=== PATIENT | female | born 2005 | race Caucasian/White ===

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

== ENCOUNTER 2023-04-27 05:18 | Emergency (ER) | payer MEDICAID, SELFPAY ==
[2023-04-27 05:18] VITALS: BP 117/78; PULSE 75; RESP 17; TEMP 36.6; O2SAT 98; BMI 18.8
--- OUTSIDE RECORDS SUMMARY | 2023-04-27 05:32 | XMS RPT_ITS | CCD ---
Author Name Unknown Address [address] [place] [address] Organization [facility] Care Team Providers Care Laboratory Chief Name Role Phone ELZA MAIN Attending Unavailabl simone Aguillon III, MD, Rory A Primary Care Provider Malathi vailable Pal GALLO MD, Royr A Primary Care Provider Malathi vailable Required, No Pcp Unavailable Unavailable Bilderback, Ashanti Unavailable Ashanti Tellez Attending Unavaildavis Evans, Ms. Sherrie Dumont Attending Unavailable Bilderback, BETO Gabriel Referring Unavailable Unavailable Primary Care Provider UnavailRORY Franklin III A Primary Care Unavailable RORY AGUILLON III A Primary Care Unavailable BRAULIO KELLY Attending Unavailable NO, PHYSICIAN Primary Care Unavailable MARIA TERESA GRAMAJO Attending Unava ilable NO, PHYSICIAN Primary Care Unavailable BERNARD CARRENO Attending Unavail able Unavailable Primary Care Provider UnavailRENETTA Pryor Attending Unavailable RENETTA PONCE Referring Unavailable Medications Current Medications Medication Drug Class(es) Dates Sig (Normalized) Sig (Original) Ethinyl Estradiol / Levonorgestrel (5 sources) Progestin, Estrogen, Progestin-containi ng Intrauterine Device Start: 10-31-2020 End: 06-19-2022 take 1 tablet by mouth once daily Levonorgestrel-Eth inyl Estrad 0.1mg - 20mcg per tablet take 1 tablet by mouth once daily (FOR CONTINUOUS CYCLING) 0 10/31/2020 06/19/2022 Discontinued Problems Active Problems Problem Classification Problem Date Documented Date Episodic/Chronic Anxiety disorders (3 sources) Panic attack; Translations: [Panic disorder [episodic paroxysmal anxiety]] Onset: 03-04-2023 03-04-2023 Chronic Cardiac dysrhythmias (9 sources) Palpitations; Translations: [Palpitations] Onset: 01-27-2023 Episodic Conditions associated with dizziness or vertigo (1 source) Dizziness and giddiness; Translations: [Dizziness and giddiness] Onset: 05-27-2018 Episodic Disorders usually diagnosed in infancy, childhood, or adolescence (8 sources) Attention deficit hyperactivity disorder, predominantly inattentive type; Translations: [Other specified behavioral and emotional disorders with onset usually occurring in childhood and adolescence] Onset: 04-23-2013 04-23-2013 Chronic Genitourinary symptoms and ill-defined conditions (1 source) Scalding pain on urination ; Translations: [Dysuria] Episodic Headache; including migraine (8 sources) Migraine; Translations: [Migraine, unspecified, not intractable, without status migrainosus] Onset: 09-26-2012 09-26-2012 Chronic Headache; including migraine (1 source) Headache; Translations: [Headache, unspecified headache type] Episodic Past or Other Problems Problem Classification Problem Date Documented Da te Episodic/Chronic Other screening for suspected conditions (not mental disorders or infectious disease) (2 sources) Encounter for test, result negative; Translations: [Encounter for test, result negative] Onset: 10-11-2022 Episodic Syncope (10 sources) Syncope; Translations: [Syncope and collapse] Onset: 09-03-2014 Episodic Results Test Name Value Interpretation Reference Range Facil ity Vital Signs Date Time Vital Sign Value Performing Clinician Facility 06-19-2022 08:13-0500 Body height 162 cm Braulio Kelly MD Work Phone: [facility] 06-19-2022 08:13-0500 Body temperature 96.21 [degF] Braulio Kelly MD Work Phone: [facility] 06-19-2022 08:13-0500 Body weight 48.26 kg Braulio Kelly MD Work Phone: [facility] 06-19-2022 08:13-0500 Diastolic blood pressure 58 mm[Hg] Braulio Kelly MD Work Phone: [facility] 06-19-2022 08:13-0500 Heart rate 84 /min Braulio Kelly MD Work Phone: [facility] 06-19-2022 08:13-0500 Respiratory rate 18 /min Braulio Kelly MD Work Phone: [facility] 06-19-2022 08:13-0500 SaO2% (BldA) [Mass fraction] 99 % Braulio Kelly MD Work Phone: [facility] 06-19-2022 08:13-0500 Systolic blood pressure 98 mm[Hg] Braulio Kelly MD Work Phone: [facility] 06-03-2022 14:00-0500 Diastolic blood pressure 65 mm[Hg] No Pcp Required [facility] 06-03-2022 14:00-0500 Heart rate 80 /min No Pcp Required [facility] 06-03-2022 14:00-0500 Respiratory rate 16 /min No Pcp Required [facility] 06-03-2022 14:00-0500 SaO2% (BldA) [Mass fraction] 98 % No Pcp Required [facility] 06-03-2022 14:00-0500 Systolic blood pressure 100 mm[Hg] No Pcp Required [facility] 06-03-2022 11:43-0500 Body height 162.5 cm No Pcp Required [facility] 06-03-2022 11:43-0500 Body temperature 98.24 [degF] No Pcp Required [facility] 06-03-2022 11:43-0500 Body weight 50 kg No Pcp Required [facility] 01-26-2022 10:56-0400 Body temperature 97.5 [degF] Jocelyn Athy PA-C Work Phone: [facility] 01-26-2022 10:56-0400 Body weight 53.89 kg Jocelyn Athy PA-C Work Phone: [facility] 01-26-2022 10:56-0400 Diastolic blood pressure 64 mm[Hg] Jocelyn Athy PA-C Work Phone: [facility] 01-26-2022 10:56-0400 Heart rate 80 /min Jocelyn Athy PA-C Work Phone: [facility] 01-26-2022 10:56-0400 Respiratory rate 18 /min Jocelyn Brunner PA-C Work Phone: [facility] 01-26-2022 10:56-0400 SaO2% (BldA) [Mass fraction] 98 % Jocelyn Brunner PA-C Work Phone: [facility] 01-26-2022 10:56-0400 Systolic blood pressure 102 mm[Hg] Jocelyn Brunner PA-C Work Phone: [facility] Encounters Encounter Date Encounter Type Care Provider Facility Start: 03-10-2023 End: 03-11-2023 ambulatory RENETTA PONCE [facility] Start: 03-10-2023 End: 03-10-2023 Subsequent hospital visit by physician [facility] Procedures Date Procedure Procedure Detail Performing Clinician Start: 03-10-2023 HOLTER OR EVENT CARD IAC MONITOR RENETTA PONCE Start: 06-03-2022 End: 06-03-2022 EKG impression Vicente Frye Start: 01-26-2022 Urnls dip stick/tabl et rgnt auto w/o microscopy Missy Leon APRN.LURE MAKER Work Phone: Start: 10-10-2018 Adult depression screening assessment Rashel Maria MD Work Phone: Plan of Treatment Date Care Activity Detail Author Start: 2053 Zoster Vaccines (1 of 2) Zoster Vaccines (1 of 2) [facility] Start: 10-04-2026 DTaP/Tdap/Td Vaccines (7 - Td or Tdap) DTaP/Tdap/Td Vaccines (7 - Td or Tdap) [facility] Start: 10-04-2026 Urine microalbumin profile DTAP,TDAP,TD (7 - Td or Tdap) [facility] Start: 03-04-2023 End: 03-04-2024 Holter monitor study Holter Or Event Estimate Clerk Cardiac Services Routine Palpitations Expected: 03/04/2023 (Approximate), Expires: 03/04/2024 [facility] Service Area Work Phone: Immunizations Immunization Date Immunization Notes Care Provider Fa cility 06-28-2017 Human Papillomavirus 9-valent vaccine Rashel Maria MD Work Phone: [facility] Work Phone: 10-04-2016 human papilloma viru s vaccine, quadrivalent Rashel Maria MD Work Phone: [facility] 10-04-2016 meningococcal polysaccharide (groups A, C, Y and W-135) diphtheria toxoid conjugate vaccine (MCV4P) Rashel Maria MD Work Phone: [facility] 10-04-2016 tetanus toxoid, redu marisa diphtheria toxoid, and acellular pertussis vaccine, adsorbed Rashel Maria MD Work Phone: [facility] 12-02-2008 measles, mumps and rubella virus vaccine Rashel Maria MD Work Phone: [facility] Work Phone: 12-02-2008 varicella virus vaccine Tono Maria MD Work Phone: [facility] Work Phone: 07-10-2008 diphtheria, tetanus toxoids and acellular pertussis vaccine Rashel Maria MD Work Phone: [facility] Work Phone: 07-10-2008 pneumococcal conjuga te vaccine, 7 valent Rashel Maria MD Work Phone: [facility] Work Phone: 07-10-2008 poliovirus vaccine, inactivated Rashel Maria MD Work Phone: [facility] Work Phone: 07-10-2008 varicella virus vaccine Tono Maria MD Work Phone: [facility] Work Phone: 07-12-2006 diphtheria, tetanus toxoids and acellular pertussis vaccine Rashel Maria MD Work Phone: [facility] 07-12-2006 DTaP-Haemophilus influenzae type b conjugate vaccine Renetta Ponce EQUIP TECH-LURE MAKER, DNP Work Phone: [facility] Work Phone: 07-12-2006 haemophilus influenz ae type b vaccine, HbOC conjugate Rashel Maria MD Work Phone: [facility] 07-12-2006 measles, mumps and rubella virus vaccine Rashel Maria MD Work Phone: [facility] 05-13-2004 DTaP-hepatitis B and poliovirus vaccine Rashel Maria MD Work Phone: [facility] Work Phone: 05-13-2004 haemophilus influenz ae type b vaccine, HbOC conjugate Rashel Maria MD Work Phone: [facility] Work Phone: 05-13-2004 haemophilus influenz ae type b vaccine, PRP-T conjugate Renetta SHARMA DNP Work Phone: [facility] Work Phone: 05-13-2004 hepatitis B vaccine, pediatric or pediatric/adolescent dosage Rashel Maria MD Work Phone: [facility] Work Phone: 05-03-2004 pneumococcal conjuga te vaccine, 13 valent Renetta SHARMA DNP Work Phone: [facility] Work Phone: 05-03-2004 pneumococcal conjuga te vaccine, 7 valent Rashel Maria MD Work Phone: [facility] Work Phone: 2003 DTaP-hepatitis B and poliovirus vaccine Rashel Maria MD Work Phone: [facility] Work Phone: 2003 haemophilus influenz ae type b vaccine, HbOC conjugate Rashel Maria MD Work Phone: [facility] Work Phone: 2003 haemophilus influenz ae type b vaccine, PRP-T conjugate Renetta SHARMA DNP Work Phone: [facility] Work Phone: 2003 pneumococcal conjuga te vaccine, 13 valent Renetta SHARMA, [facility] Work Phone: [facility] Work Phone: 2003 pneumococcal conjuga te vaccine, 7 valent Rashel Maria MD Work Phone: [facility] Work Phone: 2003 DTaP-hepatitis B and poliovirus vaccine Rashel Maria MD Work Phone: [facility] Work Phone: 2003 haemophilus influenz ae type b vaccine, HbOC conjugate Rashel Maria MD Work Phone: [facility] Work Phone: 2003 haemophilus influenz ae type b vaccine, PRP-T conjugate Renetta SHARMA, [facility] Work Phone: [facility] Work Phone: 2003 pneumococcal conjuga te vaccine, 7 valent Rashel Maria MD Work Phone: [facility] Work Phone: 2003 hepatitis B vaccine, pediatric or pediatric/adolescent dosage Rashel Maria MD Work Phone: [facility] Work Phone: Payers Date Payer Category Payer Unknown [employer] PPO OOS [id number] 2020-Present [phone] [id number] [place] [address] PPO [id number] 2020 Unknown [id number] 2020 Unknown [id number] 2003 Unknown [id number] 2003 Unknown [id number] Self-pay Social History Date Type Detail Facility Start: 05-27-2018 End: 03-04-2023 Tobacco smoking status NHIS Never smoked tobacco [facility] Start: 05-27-2018 End: 03-04-2023 Tobacco use and exposure Smokeless tobacco non-user [facility] Start: 01-13-2021 End: 06-19-2022 Alcohol intake Current non-drinker of alcohol (finding) [facility] Start: 2003 Sex Assigned At Not on file C [facility] Start: 11-02-2021 End: 03-10-2023 Exposure to SARS-CoV-2 (event) Not sure [facility] History of tobacco use Passive smoker [facility] Tobacco smoking consumption unknown [facility] Start: 03-04-2023 Gender identity Not on file [facility] Work Phone: Start: 03-04-2023 Alcohol intake Lifetime non-d chino (finding) [facility] Work Phone: Start: 03-04-2023 History of Social function [facility] Work Phone: Clinical Notes 09-03-2014 to 03-04-2023 Renetta Ponce APRN-BETO, ROSARIO - 03/04/2023 2:15 PM VIDAVicchad Kelly MD - 06/19/2022 8:45 AM ESTTelephone Encounter - Katlyn Bruner RN - 06/17/2022 11:01 AM EST Note Date & Type Note Facility 03-04-2023 History of Presen t illness Narrative [facility] VISIT CHIEF COMPLAINT Establish care for palpitations HISTORY OF PRESENT ILLNESS Patient presents for c/o panic attacks and at times palpitations. She reports the panic attacks happen before bed with no triggers. She has been evaluated before for syncope and seizures which have been ruled out. She reports the palpitations occur almost daily and are worse when she is working. She reports feeling as though her heart is beating out of her chest. 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 Social History Social History Tobacco Use Smoking status: Not on file Smokeless tobacco: Not on file Substance Use Topics Alcohol use: Not on file Drug use: Not on file Family History Mom-anxiety Dad-none Sister-seizures Allergies: No Known Allergies Outpatient Medications: No current outpatient medications Labs: CMP: Recent Labs 06/03/22 1028 NA 140 K 3.9 CL 106 CO2 29 ANIONGAP 9* BUN 11 CREATININE 0.77 Recent Labs 06/03/22 1028 ALBUMIN 4.1 ALKPHOS 57 ALT 15 AST 15 BILITOT 0.3 CBC: Recent Labs 06/03/22 1028 WBC 12.7* HGB 13.6 HCT 41.6 PLT 317 MCV 88 COAG: No results for input(s): PTT , INR , HAUF , DDIMERVTE , HAPTOGLOBIN , FIBRINOGEN in the last 58956 hours. ABO: No results for input(s): ABO in the last 95662 hours. HEME/ENDO:No results for input(s): FERRITIN , IRONSAT , TSH , HGBA1C in the last 85412 hours. CARDIAC: No results for input(s): LDH , CKMB , TROPHS , BNP in the last 34300 hours. No lab exists for component: CK , CKMBP No results for input(s): CHOL , LDLF , HDL , TRIG in the last 86365 hours. MICRO: No results for input(s): ESR , CRP , PROCAL in the last 90248 hours. No results found for the last 90 days. Notable Studies: imaging personally reviewed EKG:No results found for this or any previous visit (from the past 4464 hour(s)). Echocardiogram: No results found for this or any previous visit from the past 1825 days. Stress Testing: No results found for this or any previous visit from the past 1825 days. Cardiac Catheterization: No results found for this or any previous visit from the past 1825 days. No results found for this or any previous visit from the past 3650 days. REVIEW OF SYSTEMS A 10-point system review was completed and was negative except as noted in the HPI. VITALS There were no vitals filed for this visit. PHYSICAL EXAM General: awake, alert and oriented. No acute distress. Skin: Skin is warm, dry and intact without rashes or lesions. HEENT: normocephalic, atraumatic; conjunctivae are clear without exudates or hemorrhage. Sclera is non-icteric. Eyelids are normal in appearance without swelling or lesions. Hearing intact. Nares are patent bilaterally. Moist mucous membranes. Cardiovascular: heart rate and rhythm are normal. No murmurs, gallops, or rubs are auscultated. S1 and S2 are heard and are of normal intensity. No JVD, no carotid bruits Respiratory: bilateral lung sounds clear to auscultations without rales, rhonchi, or wheezes. No accessory muscle use or stridor Gastrointestinal: non-distended, non-tender Genitourinary: exam deferred Musculoskeletal: ROM intact, no deformities Extremities: pulses palpable bilaterally; no swelling or erythema Neurological: no focal deficits; gait steady Psychiatric: appropriate mood and affect; good judgment and insight ASSESSMENT AND PLAN Assessment/Plan RTC: Thank you for allowing me to participate in the care of this patient. Please reach me out if you have any questions or if you need any clarifications regarding the patient's care. Renetta Ponce DNP, TANIA, [employer]-C Division of Cardiovascular Medicine [facility] documented in this encounter [facility] Work Phone: 06-19-2022 Note HNO ID: [id number] Author: Braulio Kelly MD Service: ? Author Type: Physician Type: Progress Notes Filed: 06/19/2022 8:58 AM Note Text: This note was created using Barcheyachtriter. Subjective Eri Perdomo is a 17 year old female here with her grandmother. She was seen in [facility] 06/17/22 for syncope. Labs, including cardiac work up was negative. She was also in [facility] 06/03/22. Work up was negative other than positive for cannabinoids. She was in [facility] 10/2021 for the same. No triggers are identified. She will get dizzy like vertigo, followed by loss of consciousness for a few minutes. She's had no major injury from syncopal spells. She regains consciousness with fleeting disorientation. She's had intermittent syncope for several years, but not this frequent. She had a normal echocardiogram in 2015 and normal EEG 2019. Review of Systems Constitutional: Negative. Respiratory: Negative for shortness of breath. Cardiovascular: Negative for chest pain and palpitations. Gastrointestinal: Negative. Neurological: Negative. ACTIVE PROBLEM LIST Migraine Headache Add (Attention Deficit Disorder) Syncope PAST SURGICAL HISTORY Procedure Laterality Date NONE FAMILY HISTORY Problem Relation Age of Onset No Known Problems Mother No Known Problems Father Seizures Sister 1/2 sister No Known Problems Brother Hypertension Maternal Grandmother Diabetes Maternal Grandmother Social History Tobacco Use Smoking status: Passive Smoke Exposure - Never Smoker Smokeless tobacco: Never Vaping Use Vaping Use: Never used Substance Use Topics Alcohol use: No Drug use: Not Currently Types: Marijuana Comment: occasional edibles ALLERGIES No Known Allergies No current outpatient medications on file. No current facility-administered medications for this visit. Objective BP 98/58 Pulse 84 Temp (!) 35.7 ?C (96.2 ?F) Resp 18 Ht 162 cm (5' 3.78 ) Wt 48.3 kg (106 lb 6.4 oz) LMP 06/07/2022 (Exact Date) SpO2 99% BMI 18.39 kg/m? Physical Exam Constitutional: Appearance: Normal appearance. HENT: Head: Atraumatic. Eyes: Extraocular Movements: Extraocular movements intact. Cardiovascular: Rate and Rhythm: Normal rate and regular rhythm. Pulses: Normal pulses. Heart sounds: No murmur heard. No gallop. Pulmonary: Breath sounds: Normal breath sounds. Skin: General: Skin is warm and dry. Neurological: General: No focal deficit present. Mental Status: She is alert. Psychiatric: Mood and Affect: Mood normal. Assessment and Plan 1. Syncope and collapse - ICD9: 780.2, ICD10: R55 - CON[facility]ULT TO [facility] Braulio Kelly MD [facility] 06-19-2022 History of Presen t illness Narrative This note was created using NoteWriter. Subjective Eri Perdomo is a 17 year old female here with her grandmother. She was seen in [facility] 06/17/22 for syncope. Labs, including cardiac work up was negative. She was also in [facility] 06/03/22. Work up was negative other than positive for cannabinoids. She was in [facility] 10/2021 for the same. No triggers are identified. She will get dizzy like vertigo, followed by loss of consciousness for a few minutes. She's had no major injury from syncopal spells. She regains consciousness with fleeting disorientation. She's had intermittent syncope for several years, but not this frequent. She had a normal echocardiogram in 2014 and normal EEG 2018. Review of Systems Constitutional: Negative. Respiratory: Negative for shortness of breath. Cardiovascular: Negative for chest pain and palpitations. Gastrointestinal: Negative. Neurological: Negative. ACTIVE PROBLEM LIST Migraine Headache Add (Attention Deficit Disorder) Syncope PAST SURGICAL HISTORY Procedure Laterality Date NONE FAMILY HISTORY Problem Relation Age of Onset No Known Problems Mother No Known Problems Father Seizures Sister 1/2 sister No Known Problems Brother Hypertension Maternal Grandmother Diabetes Maternal Grandmother Social History Tobacco Use Smoking status: Passive Smoke Exposure - Never Smoker Smokeless tobacco: Never Vaping Use Vaping Use: Never used Substance Use Topics Alcohol use: No Drug use: Not Currently Types: Marijuana Comment: occasional edibles ALLERGIES No Known Allergies No current outpatient medications on file. No current facility-administered medications for this visit. Objective BP 98/58 Pulse 84 Temp (!) 35.7 C (96.2 F) Resp 18 Ht 162 cm (5' 3.78 ) Wt 48.3 kg (106 lb 6.4 oz) LMP 06/07/2022 (Exact Date) SpO2 99% BMI 18.39 kg/m Physical Exam Constitutional: Appearance: Normal appearance. HENT: Head: Atraumatic. Eyes: Extraocular Movements: Extraocular movements intact. Cardiovascular: Rate and Rhythm: Normal rate and regular rhythm. Pulses: Normal pulses. Heart sounds: No murmur heard. No gallop. Pulmonary: Breath sounds: Normal breath sounds. Skin: General: Skin is warm and dry. Neurological: General: No focal deficit present. Mental Status: She is alert. Psychiatric: Mood and Affect: Mood normal. Assessment and Plan 1. Syncope and collapse - ICD9: 780.2, ICD10: R55 - CONSULT TO [facility] Braulio Kelly MD documented in this encounter [facility] 06-17-2022 Miscellaneous Notes Returned call to mother, Karina Artis. ER F/U appt made for patient as requested. Katlyn Bruner RN Patient's mother was returning a missed call from the office from today. There was no documentation in the patient's chart of the reason for the call. Please contact the patient's mother if necessary as the patient is currently at the ER. documented in this encounter [facility] 06-16-2022 Miscellaneous Notes Triage Protocol Recommended: Evaluation at [facility] today. To ER for severe symptoms. Reason for Disposition [1] MODERATE pain (e.g., interferes with normal activities) AND [2] pain comes and goes (cramps) AND [3] present > 24 hours (Exception: pain with Vomiting or Diarrhea - see that Guideline) Answer Assessment - Initial Assessment Questions Patient's mother calling for patient. Patient not present to answer all questions. This nurse obtained information that could be received. Pt has NO PCP at this time. Pt c/o abdominal pain, low back pain and fatigue. Denies fever, chills, nausea, vomiting, diarrhea or dizziness. Mother reports pt seems to be eating and drinking but thinks pt not eating enough. Pt had little cough and cold symptoms days ago but improving. No other sx's stated. 1. LOCATION: intermittent abdominal pain 2. RADIATION: lower center back pain at times 3. ONSET: - 4. SUDDEN: - 5. PATTERN : - 6. SEVERITY: - 7. RECURRENT SYMPTOM: - 8. CAUSE: - 9. RELIEVING/AGGRAVATING FACTORS: nothing 10. OTHER SYMPTOMS: + back pain, +abdominal pain. No diarrhea, fever, urination pain, nausea or vomiting 11. : - Protocols used: Abdominal Pain - [id number] documented in this encounter [facility] 01-26-2022 Note HNO ID: [id number] Author: Jocelyn Brunner PA-C Service: ? Author Type: Physician Laboratory [place] Type: Progress Notes Filed: 01/26/2022 12:54 PM Note Text: This note was created using [employer]cheyacht[employer]. Subjective Eri Perdomo is a 16 year old female. HPI Patient presents with dysuria and lower abdominal pain over the past 2 days. She has seen some blood in her urine. Last menstrual cycle was a week ago and normal for her. She denies being sexually active, denies chance of . No vaginal itching or discharge. Denies back pain. No vomiting or diarrhea. She is here with mom. Review of Systems HENT: Negative. Respiratory: Negative. Cardiovascular: Negative. Gastrointestinal: Positive for abdominal pain. Negative for diarrhea, nausea and vomiting. Genitourinary: Positive for dysuria, frequency, hematuria, pelvic pain and urgency. Negative for flank pain, vaginal bleeding, vaginal discharge and vaginal pain. Musculoskeletal: Negative. Skin: Negative. All other systems reviewed and are negative. PAST MEDICAL HISTORY Diagnosis Date ADD (attention deficit disorder) 04/23/2013 Current Outpatient Medications Medication Sig Dispense Refill nitrofurantoin monohydrate and macrocrystal (MACROBID) 100 mg capsule Take 1 capsule by mouth twice daily for 5 days. 10 capsule 0 Levonorgestrel-Ethinyl Estrad 0.1mg - 20mcg per tablet take 1 tablet by mouth once daily (FOR CONTINUOUS CYCLING) (Patient not taking: Reported on 01/13/2021) famotidine (PEPCID) 20 mg tablet Take 1 tablet by mouth at bedtime as needed. (Patient not taking: Reported on 12/06/2020 ) 20 tablet 0 multivit-min/ferrous fumarate (MULTI VITAMIN ORAL) Take by mouth. (Patient not taking: Reported on 12/06/2020 ) No current facility-administered medications for this visit. No past surgical history on file. FAMILY HISTORY Problem Relation Age of Onset Hypertension Maternal Grandmother Social History Tobacco Use Smoking status: Passive Smoke Exposure - Never Smoker Smokeless tobacco: Never Vaping Use Vaping Use: Never used Substance Use Topics Alcohol use: No Drug use: No Objective BP 102/64 Pulse 80 Temp 36.4 ?C (97.5 ?F) (Tympanic) Resp 18 Wt 53.9 kg (118 lb 12.8 oz) LMP 01/25/2020 SpO2 98% Physical Exam Vitals reviewed. Constitutional: Appearance: Normal appearance. HENT: Head: Normocephalic and atraumatic. Cardiovascular: Rate and Rhythm: Normal rate and regular rhythm. Heart sounds: Normal heart sounds. Pulmonary: Effort: Pulmonary effort is normal. Breath sounds: Normal breath sounds. Abdominal: General: Abdomen is flat. Tenderness: There is abdominal tenderness. There is no right CVA tenderness, left CVA tenderness, guarding or rebound. Comments: Mild suprapubic ttp Skin: General: Skin is warm and dry. Findings: No rash. Neurological: Mental Status: She is alert. Assessment and Plan ASSESSMENT/PLAN: 1. Burning with urination - ICD9: 788.1, ICD10: R30.0 acute - UA positive for samina esterase, hematuria, and proteinuria - Send urine for culture - Begin treatment with Macrobid 100 mg BID for 5 days - UA DIP, URINE (POC) - URINE CULTURE Jocelyn Brunner PA-C [facility] 01-26-2022 History of Presen t illness Narrative This note was created using [employer]. Subjective Eri Perdomo is a 16 year old female. HPI Patient presents with dysuria and lower abdominal pain over the past 2 days. She has seen some blood in her urine. Last menstrual cycle was a week ago and normal for her. She denies being sexually active, denies chance of . No vaginal itching or discharge. Denies back pain. No vomiting or diarrhea. She is here with mom. Review of Systems HENT: Negative. Respiratory: Negative. Cardiovascular: Negative. Gastrointestinal: Positive for abdominal pain. Negative for diarrhea, nausea and vomiting. Genitourinary: Positive for dysuria, frequency, hematuria, pelvic pain and urgency. Negative for flank pain, vaginal bleeding, vaginal discharge and vaginal pain. Musculoskeletal: Negative. Skin: Negative. All other systems reviewed and are negative. PAST MEDICAL HISTORY Diagnosis Date ADD (attention deficit disorder) 04/23/2013 Current Outpatient Medications Medication Sig Dispense Refill nitrofurantoin monohydrate and macrocrystal (MACROBID) 100 mg capsule Take 1 capsule by mouth twice daily for 5 days. 10 capsule 0 Levonorgestrel-Ethinyl Estrad 0.1mg - 20mcg per tablet take 1 tablet by mouth once daily (FOR CONTINUOUS CYCLING) (Patient not taking: Reported on 01/13/2021) famotidine (PEPCID) 20 mg tablet Take 1 tablet by mouth at bedtime as needed. (Patient not taking: Reported on 12/06/2020 ) 20 tablet 0 multivit-min/ferrous fumarate (MULTI VITAMIN ORAL) Take by mouth. (Patient not taking: Reported on 12/06/2020 ) No current facility-administered medications for this visit. No past surgical history on file. FAMILY HISTORY Problem Relation Age of Onset Hypertension Maternal Grandmother Social History Tobacco Use Smoking status: Passive Smoke Exposure - Never Smoker Smokeless tobacco: Never Vaping Use Vaping Use: Never used Substance Use Topics Alcohol use: No Drug use: No Objective BP 102/64 Pulse 80 Temp 36.4 C (97.5 F) (Tympanic) Resp 18 Wt 53.9 kg (118 lb 12.8 oz) LMP 01/25/2020 SpO2 98% Physical Exam Vitals reviewed. Constitutional: Appearance: Normal appearance. HENT: Head: Normocephalic and atraumatic. Cardiovascular: Rate and Rhythm: Normal rate and regular rhythm. Heart sounds: Normal heart sounds. Pulmonary: Effort: Pulmonary effort is normal. Breath sounds: Normal breath sounds. Abdominal: General: Abdomen is flat. Tenderness: There is abdominal tenderness. There is no right CVA tenderness, left CVA tenderness, guarding or rebound. Comments: Mild suprapubic ttp Skin: General: Skin is warm and dry. Findings: No rash. Neurological: Mental Status: She is alert. Assessment and Plan ASSESSMENT/PLAN: 1. Burning with urination - ICD9: 788.1, ICD10: R30.0 acute - UA positive for samina esterase, hematuria, and proteinuria - Send urine for culture - Begin treatment with Macrobid 100 mg BID for 5 days - UA DIP, URINE (POC) - URINE CULTURE Jocelyn Brunner PA-C documented in this encounter [facility] 11-12-2021 Note HNO ID: [id number] Author: Rashel Maria MD Service: ? Author Type: Physician Type: Progress Notes Filed: 11/12/2021 10:43 AM Note Text: Express Care Triage Note: Patient presents to the [facility] care with complaint of she passed out at [place] yesterday. She thinks she hit her head and has a headache today. Normal speech and ambulation. Accompanied by her mother. Referred to primary care for evaluation of syncope. Proceed to the ER with worsening headache or other worrisome symptoms. [facility] 11-12-2021 History of Presen t illness Narrative Express Care Triage Note: Patient presents to the [facility] care with complaint of she passed out at [place] yesterday. She thinks she hit her head and has a headache today. Normal speech and ambulation. Accompanied by her mother. Referred to primary care for evaluation of syncope. Proceed to the ER with worsening headache or other worrisome symptoms. documented in this encounter [facility] documented as of this encounter (statuses as of 06/19/2022) [facility]2015 History of Past illness Narrative* Problem Noted Date Resolved Date Syncope 09/03/2014 10/10/2018 Vasovagal syncope 09/03/2014 10/10/2018 Short stature 06/27/2007 05/25/2013 documented as of this encounter (statuses as of 11/12/2021) [facility] History of Past illness Narrative* Problem Noted Date Resolved Date Syncope 09/03/2014 10/10/2018 Vasovagal syncope 09/03/2014 10/10/2018 Short stature 06/27/2007 05/25/2013 documented as of this encounter (statuses as of 01/26/2022) [facility] History of Past illness Narrative* Problem Noted Date Resolved Date Syncope 09/03/2014 10/10/2018 Vasovagal syncope 09/03/2014 10/10/2018 Short stature 06/27/2007 05/25/2013 documented as of this encounter (statuses as of 06/16/2022) [facility] History of Past illness Narrative* Problem Noted Date Resolved Date Syncope 09/03/2014 10/10/2018 Vasovagal syncope 09/03/2014 10/10/2018 Short stature 06/27/2007 05/25/2013 documented as of this encounter (statuses as of 06/17/2022) [facility] note* Diagnosis Syncope, unspecified syncope type- Primary Headache, unspecified headache type documented in this encounter [facility] note* Diagnosis Burning with urination- Primary Dysuria documented in this encounter [facility] note* Diagnosis Syncope and collapse- Primary documented in this encounter [facility] note* Diagnosis Palpitations- Primary Panic attack Panic disorder without agoraphobia documented in this encounter [facility] Work Phone: Evaluation note* Diagnosis Palpitations documented in this encounter [facility] Work Phone: Summary Purpose Family History No Family History Records FoundNo Family History Records FoundNo Family History Records FoundNo Family History Records FoundNo Family History Records FoundNo Family History Records FoundNo Family History Records FoundNo Family History Records Found Advance Directives No Advanced Directives Records FoundNo Advanced Directives Records FoundNo Advanced Directives Records FoundNo Advanced Directives Records FoundNo Advanced Directives Records FoundNo Advanced Directives Records FoundNo Advanced Directives Records FoundNo Advanced Directives Records Found Reason for Referral Specialty Diagnoses / Procedures Referred By Chaol ravi Referred To Contact Diagnoses Syncope and collapse Procedures CONSULT TO [facility] OFFICE/OUTPATIENT [facility] 60-74 MINUTES Braulio Kelly MD [address] [place] [address] Referral ID Status Reason Start Date Expiration Date Visits Requested Visits Authorized [id number] Authorized PCP Requested Referral 06/19/2022 06/19/2023 1 1 Additional Source Comments INFORMATION SOURCE (unrecogn ized section and content) DATE CREATED AUTHOR AUTHOR'S ORGANIZ ATION 01/25/2020 [facility] DATE CREATED AUTHOR AUTHOR'S ORGANIZ ATION 06/04/2022 [facility] DATE CREATED AUTHOR AUTHOR'S ORGANIZ ATION 06/10/2022 [facility] DATE CREATED AUTHOR AUTHOR'S ORGANIZ ATION 06/20/2022 [facility] DATE CREATED AUTHOR AUTHOR'S ORGANIZ ATION 01/30/2023 [facility] DATE CREATED AUTHOR AUTHOR'S ORGANIZ ATION 03/06/2023 [facility] DATE CREATED AUTHOR AUTHOR'S ORGANIZ ATION 04/05/2023 [facility] Source Comments (unrecognize d section and content) In the event this informatio n is protected by the Federal Confidentiality of Alcohol and Drug Abuse Patient Records regulations: The Federal rules restrict any use of the information to criminally investigate or prosecute any alcohol or drug abuse patient.[facility] the event this information is protected by the Federal Confidentiality of Alcohol and Drug Abuse Patient Records regulations: The Federal rules restrict any use of the information to criminally investigate or prosecute any alcohol or drug abuse patient.[facility] the event this information is protected by the Federal Confidentiality of Alcohol and Drug Abuse Patient Records regulations: The Federal rules restrict any use of the information to criminally investigate or prosecute any alcohol or drug abuse patient.[facility] the event this information is protected by the Federal Confidentiality of Alcohol and Drug Abuse Patient Records regulations: The Federal rules restrict any use of the information to criminally investigate or prosecute any alcohol or drug abuse patient.[facility] the event this information is protected by the Federal Confidentiality of Alcohol and Drug Abuse Patient Records regulations: The Federal rules restrict any use of the information to criminally investigate or prosecute any alcohol or drug abuse patient.[facility] Care Teams (unrecognized sec tion and content) Laboratory Chief Relationship Specialty Start Date End Date Rory Aguillon III, MD NO FORWARDING ADDRESS PCP - General 03 Reason for Visit (unrecogniz ed section and content) Reason Comments Back Pain Abdominal Pain Reason Comments Called Back Reason Comments ED Follow-up ER follow up [facility] 05/27. No PCP. <item> Privacy Markings (unrecogniz ed section and content) Section Author: Arabella Sierra PROHIBITION ON REDISCLOSURE OF CONFIDENTIAL INFORMATION This notice accompanies a disclosure of information concerning a client made to you with the consent of such client. FOR RECORDS PERTAINING TO PATIENTS WHO ARE OR HAVE BEEN ENROLLED IN A CHEMICAL DEPENDENCY/SUBSTANCEABUSE PROGRAM, SOME INFORMATION MAY BE OMITTED. This clinical summary was aggregated from multiple sources. Caution should be exercised in using it in the provision of clinical care. This summary normalizes information from multiple sources, and as a consequence, information in this document may materially change the coding, format and clinical context of patient data. In addition, data may be omitted in some cases. CLINICAL DECISIONS SHOULD BE BASED ON THE PRIMARY CLINICAL RECORDS. [facility] [employer] [facility]. provides no warranty or guarantee of the accuracy or completeness of information in this document.
[2023-04-27] MEDS: 0.9% Normal Saline (1000mL) 1,000 ML 1000 ML IV (05:56)
[2023-04-27] MEDS: Ondansetron 4 MG/2 ML Vial IV (05:56)
[2023-04-27 06:04] LABS: Absolute Neutrophil Count 4.7 X10^3/uL (2.0-7.7); Basophil# 0.04 X10^3/uL; Basophil% 0.5 % (0-1); Eosinophil# 0.12 X10^3/uL; Eosinophils% 1.5 % (0-5); Hematocrit 36.7 % (37-47); Hemoglobin 12.5 g/dL (12.0-15.0); Lymphocyte % 29.9 % (19-41); Mean Corp Hgb Conc 34.1 g/dL (32-36); Mean Corpuscular Hgb 29.6 pg (27.0-32.0); Mean Corpuscular Volume 86.8 fL (81-99); Mean Platelet Vol. 9.6 fl (6.2-12.0); Monocyte# 0.78 X10^3/uL; Monocyte% 9.7 % (0-10); NRBC Flagged by Analyzer 0 % (0-5); Neutrophil # 4.68 X10^3/uL (2.7-7.7); Neutrophil % 58.2 % (47-70); Platelet Count 253 K/mm3 (150-450); RBC Distribution Width CV 11.5 % (11.6-14.6); RBC Distribution Width SD 36.4 fl (35.1-43.9); Red Blood Count 4.23 M/mm3 (4.2-5.4)
--- NOTE | 2023-04-27 06:05 | RAD_ITS ---
EXAM: XR CHEST, 1 VIEW CLINICAL INDICATION: cp (shield abdomen) TECHNIQUE: Frontal view of the chest. COMPARISON: November 23, 2020 FINDINGS: LUNGS AND PLEURAL SPACES: Unremarkable. No consolidation or edema. No pneumothorax. No effusion. HEART: Unremarkable. Cardiac silhouette not enlarged. MEDIASTINUM: Central airways and mediastinal contour are unremarkable. BONES/JOINTS: Unremarkable. No acute fracture. SOFT TISSUES: Unremarkable. RAD/Chest 1 View (Portable) IMPRESSION: No radiographic evidence of acute cardiopulmonary disease. Electronically Signed: Alena Turner MD at 6:30 EST ,
[2023-04-27 06:34] LABS: AST(SGOT) 13 U/L (15-37); Alanine Aminotransfer ALT/SGPT 19 U/L (13-56); Albumin, Serum 3.8 g/dL (3.2-5.0); Alkaline Phosphatase 55 U/L (45-117); Anion Gap 6 (5-15); BUN 8 mg/dL (7-18); BUN/Creat Ratio 15.1 RATIO (10-20); Bilirubin, Direct 0.14 mg/dL (0.00-0.30); Calcium,Total 8.6 mg/dL (8.5-10.1); Chloride 105 mmol/L (98-107); Creatinine, Serum 0.53 mg/dL (0.55-1.02); EST Glomerular Filtration Rate 156 mL/min (>60); Est Glom Filt Rate - Afr Amer 189 mL/min (>60); Estimated Creatinine Clearance 134.22 ml/min; Globulin 3.1 g/dL (2.2-4.2); Glucose 98 mg/dL (74-106); Lipase 30 U/L (13-75); Potassium 4.1 mmol/L (3.5-5.1); Protein, Total 6.9 g/dL (6.4-8.2); Sodium Level 137 mmol/L (136-145); Troponin-I HS 5 pg/mL (3.0-54.0)
--- NOTE | 2023-04-27 07:29 | EX.ED.DYSGE1 ---
HPI History of Present Illness Chief Complaint: Chest Pain Informant: patient Onset/Context/Timing Onset: Days Timing: Intermittent Narrative Narrative: Patient presents with intermittent chest pain for the past couple of days. She states it will last an hour or so when it comes on. Patient is currently 7 weeks and scheduled to see OB next week. She does report having nausea and vomiting for the past week. Patient denies shortness of breath. No cough or congestion. Denies significant family history of heart disease. PFSH PFSH no medical history Home Medications ondansetron 4 mg disintegrating tablet 4 mg PO Q8H PRN PRN Nausea #20 tabs 04/27/23 [Rx Last Taken Unknown] Allergy/AdvReac Type Severity Reaction Status Date / Time No Known Allergies Allergy Verified 04/27/23 05:19 Social History current occupation: [employer] sexually active: No Smoking Status: Never smoker alcohol intake: never substance use type: does not use what type of physical activity do you participate in: none seatbelt use: always ROS ROS ED Constitutional Constitutional ED: Denies chills or fever(s) Eyes Eyes: Denies discharge from eye(s) ENT ENT ED: Denies discharge from eye(s), rhinorrhea or sore throat Cardiovascular Cardiovascular: Reports chest pain; Denies palpitations Respiratory/Chest Respiratory/Chest: Denies cough or dyspnea Gastrointestinal Gastrointestinal: Reports nausea and vomiting; Denies abdominal pain or diarrhea Genitourinary Genitourinary ED: Denies dysuria Musculoskeletal Musculoskeletal: Denies back pain or extremity pain Integumentary Denies Abrasions or rash Neurologic Neurologic: Denies headache(s) or weakness Psychiatric Psychiatric: Denies anxiety or depression Allergic/Immunologic Allergic/Immunologic ED: Denies lip swelling or urticaria EXAM Physical Exam Const Vital Signs: 04/27/23 05:18 04/27/23 05:18 04/27/23 07:41 Temperature 97.8 F Temperature Source Temporal Pulse Rate 75 66 Respiratory Rate 17 16 Respiratory Effort Normal Non-Labored Blood Pressure 117/78 124/78 H Blood Pressure Mean 91 93 Pulse Ox 98 99 Oxygen Delivery Method Room Air Room Air Positive well nourished and well developed General Appearance ED: well developed HEENT Reports moist mucous membranes Eyes EOMs intact bilaterally Chest Wall inspection of chest normal and palpation of chest normal Resp normal respiratory effort and clear to auscultation bilaterally Cardio regular rate and regular rhythm GI GI Narrative: Mild epigastric tenderness to palpation. Palpation: soft Extremity normal to inspection Neuro oriented x3 and no sensory deficits noted Motor Exam: strength 5/5 throughout Psych mental status grossly normal Skin no rashes or lesions noted MDM MDM MDM Narrative Medical decision making narrative: Patient placed on residential monitor. EKG obtained to evaluate for cardiac arrhythmia/ischemia. IV line initiated. Patient given Zofran and IV fluids. Labwork obtained to evaluate for leukocytosis, anemia, and electrolyte derangement. Chest x-ray obtained to evaluate for acute lung pathology, cardiac size, or mediastinal abnormality. History & Record Review Discussion w/independent historian: Patient Lab Data Attestation: I reviewed the patient's lab results. Labs: Laboratory Results - last 24 hr 04/27/23 05:57 WBC 8.0 RBC 4.23 Hgb 12.5 Hct 36.7 L MCV 86.8 MCH 29.6 MCHC 34.1 RDW Std Deviation 36.4 RDW Coeff of Billy 11.5 L Plt Count 253 MPV 9.6 Immature Gran % (Auto) 0.200 Neut % (Auto) 58.2 Lymph % (Auto) 29.9 [place] % (Auto) 9.7 Eos % (Auto) 1.5 Baso % (Auto) 0.5 Absolute Neuts (auto) 4.7 Absolute Lymphs (auto) 2.40 Nucleated RBC % 0 Sodium 137 Potassium 4.1 Chloride 105 Carbon Dioxide 26.0 Anion Gap 6 BUN 8 Creatinine 0.53 L Estim Creat Clear Calc 134.22 Est GFR (MDRD) Af Amer 189 Est GFR (MDRD) Non-Af 156 BUN/Creatinine Ratio 15.1 Glucose 98 Calcium 8.6 Total Bilirubin 0.30 Direct Bilirubin 0.14 AST 13 L ALT 19 Alkaline Phosphatase 55 Troponin I High Sens 5 Total Protein 6.9 Albumin 3.8 Globulin 3.1 Lipase 30 Radiography Chest X-Ray - ED: 1 View, Read by ED Physician, Normal, Heart, Lungs and Mediastinum Diagnostic Testing: Clinical Impression(s) from Imaging Studies Chest X-Ray 04/27/23 06:05 IMPRESSION: No radiographic evidence of acute cardiopulmonary disease. Electronically Signed: Alena Turner MD at 6:30 EST , EKG Initial EKG: Attestation: I personally reviewed and interpreted this EKG as follows: Interpretation: Sinus Rhythm (Sinus at 73 with no acute ischemia.) Treatment and Re-Evaluation :: CBC reveals normal white count 8.0 the hemoglobin 12.5. Chemistry studies unremarkable. LFTs and lipase normal. Troponin is normal at 5. Portable chest x-ray per my interpretation reveals no acute abnormalities. Radiology interpretation reviewed and agrees. EKG is sinus rhythm with no acute ischemia. On repeat evaluation patient resting comfortably. She states her symptoms are improved. I will give her prescription for Zofran. I did advise if she has some reflux or burning in the mid chest she can take some Maalox or Mylanta. She will follow-up with OB next week as scheduled. Discharge Plan Triage Chief Complaint: Chest Pain ED Provider: Angelia Tinsley Dx/Rx/DC Orders Clinical Impression: First trimester , Chest pain, Vomiting Instructions: 1st Trimester, ED Chest Pain, Noncardiac, ED Vomiting (Adult) Prescriptions: New ondansetron 4 mg tablet,disintegrating 4 mg PO Q8H PRN PRN (Reason: Nausea) Qty: 20 0RF Primary Care Provider: Care Physician,No Primary Referrals: Care Physician,No Primary [Primary Care Provider] - Activity Restrictions/Additional Instructions: Follow-up with your [employer]WORK SUPERVISOR as scheduled. Disposition Disposition: Home, Self Care Discharge Date/Time: 04/27/23 07:42
[2023-04-27 07:41] VITALS: BP 124/78; PULSE 66; RESP 16; O2SAT 99
== END 2023-04-27 07:42 | disposition home or self-care (01) ==
PROVIDERS: Emergency Provider Emergency Medicine; Visit Provider Emergency Medicine
DX: O99.891 Other specified diseases and conditions complicating pregnancy (principal); O21.0 Mild hyperemesis gravidarum; R07.9 Chest pain, unspecified; Z3A.01 Less than 8 weeks gestation of pregnancy
CPT/HCPCS: 71045; 80048; 80076; 83690; 84484; 85025; 93005; 96374; 99284; J7030; A4216; J2405

== ENCOUNTER → 2023-05-06 | Outpatient (CLI) | payer OTHER, MEDICAID, SELFPAY ==
--- OUTSIDE RECORDS SUMMARY | 2023-05-06 17:20 | XMS RPT_ITS | CCD ---
Author Name Unknown Address [address] [place] [address] Organization [facility] Care Team Providers Care House Wirer Helper Name Role Phone ELAZ MAIN Attending Unavailabl simone Aguillon III, MD, Rory A Primary Care Provider Malathi vailable Pal GALLO MD, Rory A Primary Care Provider Malathi vailable Required, [...] ilable NO, PHYSICIAN Primary Care Unavailable BERNARD CARERNO Attending Unavail able Unavailable Primary Care Provider [...] 162 cm Braulio Kelly MD Work Phone: [facility] 06-19-2022 08:13-0500 Body temperature 96.21 [degF] Braulio Kelly MD Work Phone: [facility] 06-19-2022 08:13-0500 Body weight 48.26 kg Braulio Kelly MD Work Phone: [facility] 06-19-2022 08:13-0500 Diastolic blood pressure 58 mm[Hg] Braulio Kelly MD Work Phone: [facility] 06-19-2022 08:13-0500 Heart rate 84 /min Braulio Kelly MD Work Phone: [facility] 06-19-2022 08:13-0500 Respiratory rate 18 /min Braulio Kelly MD Work Phone: [facility] 06-19-2022 08:13-0500 SaO2% (BldA) [Mass fraction] 99 % Braulio Kelly MD Work Phone: [facility] 06-19-2022 08:13-0500 Systolic blood pressure 98 mm[Hg] Braulio Kelly MD Work Phone: [facility] 06-03-2022 14:00-0500 Diastolic blood pressure 65 mm[Hg] No Pcp Required [facility] 06-03-2022 14:00-0500 Heart rate 80 /min No Pcp Required [facility] 06-03-2022 14:00-0500 Respiratory rate 16 /min No Pcp Required [facility] 06-03-2022 14:00-0500 SaO2% (BldA) [Mass fraction] 98 % No Pcp Required [facility] 06-03-2022 14:00-0500 Systolic blood pressure 100 mm[Hg] No Pcp Required [facility] 06-03-2022 11:43-0500 Body height 162.5 cm No Pcp Required [facility] 06-03-2022 11:43-0500 Body temperature 98.24 [degF] No Pcp Required [facility] 06-03-2022 11:43-0500 Body weight 50 kg No Pcp Required [facility] 01-26-2022 10:56-0400 Body temperature 97.5 [degF] Jocelyn Athy PA-C Work Phone: [facility] 01-26-2022 10:56-0400 Body weight 53.89 kg Jocelyn Athy PA-C Work Phone: [facility] 01-26-2022 10:56-0400 Diastolic blood pressure 64 mm[Hg] Jocelyn Athy PA-C Work Phone: [facility] 01-26-2022 10:56-0400 Heart rate 80 /min Jocelyn Athy PA-C Work Phone: [facility] 01-26-2022 10:56-0400 Respiratory rate 18 /min Jocelyn Brunner PA-C Work Phone: [facility] 01-26-2022 10:56-0400 SaO2% (BldA) [Mass fraction] 98 % Jocelyn Brunner PA-C Work Phone: [facility] 01-26-2022 10:56-0400 Systolic blood pressure 102 mm[Hg] Jocelyn Brunner PA-C Work Phone: [facility] Encounters Encounter Date Encounter Type Care Provider Facility Start: 03-10-2023 End: 03-11-2023 ambulatory RENETTA PONCE [facility] Start: 03-10-2023 End: 03-10-2023 Subsequent hospital visit by physician [facility] Procedures Date Procedure Procedure Detail Performing Clinician Start: 03-10-2023 HOLTER OR EVENT CARD IAC MONITOR RENETTA PONCE Start: 06-03-2022 End: 06-03-2022 EKG impression Vicente Frye Start: 01-26-2022 Urnls dip stick/tabl et rgnt auto w/o microscopy Missy Leon APRN.ACCOUNTS PAYABLE SPECIALIST Work Phone: Start: 10-10-2018 Adult depression screening assessment Rashel Maria MD Work Phone: Plan of Treatment Date Care Activity Detail Author Start: 2053 Zoster Vaccines (1 of 2) Zoster Vaccines (1 of 2) [facility] Start: 10-04-2026 DTaP/Tdap/Td Vaccines (7 - Td or Tdap) DTaP/Tdap/Td Vaccines (7 - Td or Tdap) [facility] Start: 10-04-2026 Urine microalbumin profile DTAP,TDAP,TD (7 - Td or Tdap) [facility] Start: 03-04-2023 End: 03-04-2024 Holter monitor study Holter Or Event [facility] Routine Palpitations Expected: 03/04/2023 (Approximate), Expires: 03/04/2024 [facility] Service Area Work Phone: Immunizations Immunization Date Immunization Notes Care Provider Fa cility 06-28-2017 Human Papillomavirus 9-valent vaccine Rashel Maria MD Work Phone: [facility] Work Phone: 10-04-2016 human papilloma viru s vaccine, quadrivalent Rashel Maria MD Work Phone: [facility] 10-04-2016 meningococcal polysaccharide (groups A, C, Y and W-135) diphtheria toxoid conjugate vaccine (MCV4P) Rashel Maria MD Work Phone: [facility] 10-04-2016 tetanus toxoid, redu marisa diphtheria toxoid, and acellular pertussis vaccine, adsorbed Rashel Maria MD Work Phone: [facility] 12-02-2008 measles, mumps and rubella virus vaccine Rashel Maria MD Work Phone: [facility] Work Phone: 12-02-2008 varicella virus vaccine Tono Maria MD Work Phone: [facility] Work Phone: 07-10-2008 diphtheria, tetanus toxoids and acellular pertussis vaccine Rashel Maria MD Work Phone: [facility] Work Phone: 07-10-2008 pneumococcal conjuga te vaccine, 7 valent Rashel Maria MD Work Phone: [facility] Work Phone: 07-10-2008 poliovirus vaccine, inactivated Rashel Maria MD Work Phone: [facility] Work Phone: 07-10-2008 varicella virus vaccine Tono Maria MD Work Phone: [facility] Work Phone: 07-12-2006 diphtheria, tetanus toxoids and acellular pertussis vaccine Rashel Maria MD Work Phone: [facility] 07-12-2006 DTaP-Haemophilus influenzae type b conjugate vaccine Renetta Ponce MATERIALS MANAGEMENT MANAGER-ACCOUNTS PAYABLE SPECIALIST, DNP Work Phone: [facility] Work Phone: 07-12-2006 haemophilus influenz ae type b vaccine, HbOC conjugate Rashel Maria MD Work Phone: [facility] 07-12-2006 measles, mumps and rubella virus vaccine Rashel Maria MD Work Phone: [facility] 05-13-2004 DTaP-hepatitis B and poliovirus vaccine Rashel Maria MD Work Phone: [facility] Work Phone: 05-13-2004 haemophilus influenz ae type b vaccine, HbOC conjugate Rashel Maria MD Work Phone: [facility] Work Phone: 05-13-2004 haemophilus influenz ae type b vaccine, PRP-T conjugate Renetta SHARMA DNP Work Phone: [facility] Work Phone: 05-13-2004 hepatitis B vaccine, pediatric or pediatric/adolescent dosage Rashel Maria MD Work Phone: [facility] Work Phone: 05-03-2004 pneumococcal conjuga te vaccine, 13 valent Renetta SHARMA DNP Work Phone: [facility] Work Phone: 05-03-2004 pneumococcal conjuga te vaccine, 7 valent Rashel Maria MD Work Phone: [facility] Work Phone: 2003 DTaP-hepatitis B and poliovirus vaccine Rashel Maria MD Work Phone: [facility] Work Phone: 2003 haemophilus influenz ae type b vaccine, HbOC conjugate Rashel Maria MD Work Phone: [facility] Work Phone: 2003 haemophilus influenz ae type b vaccine, PRP-T conjugate Renetta SHARMA DNP Work Phone: [facility] Work Phone: 2003 pneumococcal conjuga te vaccine, 13 valent Renetta SHARMA, [facility] Work Phone: [facility] Work Phone: 2003 pneumococcal conjuga te vaccine, 7 valent Rashel Maria MD Work Phone: [facility] Work Phone: 2003 DTaP-hepatitis B and poliovirus vaccine Rashel Maria MD Work Phone: [facility] Work Phone: 2003 haemophilus influenz ae type b vaccine, HbOC conjugate Rashel Maria MD Work Phone: [facility] Work Phone: 2003 haemophilus influenz ae type b vaccine, PRP-T conjugate Renetta SHARMA, [facility] Work Phone: [facility] Work Phone: 2003 pneumococcal conjuga te vaccine, 7 valent Rashel Maria MD Work Phone: [facility] Work Phone: 2003 hepatitis B vaccine, pediatric or pediatric/adolescent dosage Rashel Maria MD Work Phone: [facility] Work Phone: Payers Date Payer Category Payer Unknown [employer] PPO OOS [id number] 2020-Present [phone] [address] [place] [address] PPO [id number] 2020 Unknown [id number] 2020 Unknown [id number] 2003 Unknown [id number] 2003 Unknown [id number] Self-pay Social History Date Type Detail Facility Start: 05-27-2018 End: 03-04-2023 Tobacco smoking status NHIS Never smoked tobacco [facility] Start: 05-27-2018 End: 03-04-2023 Tobacco use and exposure Smokeless tobacco non-user [facility] Start: 01-13-2021 End: 06-19-2022 Alcohol intake Current non-drinker of alcohol (finding) [facility] Start: 2003 Sex Assigned At Not on file [facility] Start: 11-02-2021 End: 03-10-2023 Exposure to SARS-CoV-2 (event) Not sure [facility] History of tobacco use Passive smoker [facility] Tobacco smoking consumption unknown [facility] Start: 03-04-2023 Gender identity Not on file [facility] Work Phone: Start: 03-04-2023 Alcohol intake Lifetime non-d chino (finding) [facility] Work Phone: Start: 03-04-2023 History of Social function [facility] Work Phone: Clinical Notes 09-03-2014 to 03-04-2023 Renetta Ponce APRN-BETO, ROSARIO - 03/04/2023 2:15 PM VIDAVicchad Kelly MD - 06/19/2022 8:45 AM ESTTelephone Encounter - Katlyn Bruner RN - 06/17/2022 11:01 AM EST Note Date & Type Note Facility 03-04-2023 History of Presen t illness Narrative [facility] CARDIOLOGY OFFICE VISIT CHIEF COMPLAINT Establish care [...] of her chest. 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 ABO: No results for input(s): ABO in the last 13805 hours. HEME/ENDO:No results for input(s): FERRITIN , IRONSAT , TSH , HGBA1C in the last 17223 hours. CARDIAC: No results for input(s): LDH , CKMB , TROPHS , BNP in the last 03844 hours. No lab exists for component: CK , CKMBP No results for input(s): CHOL , LDLF , HDL , TRIG in the last 19738 hours. MICRO: No results for input(s): ESR , CRP , PROCAL in the last 11944 hours. No results found for the last [...] the patient's care. Renetta Ponce DNP, TANIA, PHOTOENGRAVER-C Division of Cardiovascular Medicine [facility] documented in this encounter [facility] Work Phone: 06-19-2022 Note HNO ID: [id number] Author: rBaulio Kelly MD Service: ? Author Type: Physician Type: Progress Notes Filed: 06/19/2022 8:58 AM Note Text: This note was created using 91 [employer]. Subjective Eri Perdomo is a 17 year old female here with her grandmother. She was seen in [facility] 06/17/22 for syncope. Labs, including cardiac work up was negative. She was also in [facility] 06/03/22. Work up was negative other than positive for cannabinoids. She was in [place] [facility] 10/2021 for the same. No triggers [...] CONSULT TO [facility] Braulio Kelly MD [facility] 06-19-2022 History of Presen t illness Narrative This note was created using NoteWriter. Subjective Eri Perdomo is a 17 year old female here with her grandmother. She was seen in [place] [facility] 06/17/22 for syncope. Labs, including cardiac work up was negative. She was also in [facility] 06/03/22. Work up was negative other than positive for cannabinoids. She was in [place] [facility] 10/2021 for the same. No triggers [...] Braulio Kelly MD documented in this encounter [facility] 06-17-2022 Miscellaneous Notes Returned call to [...] at the ER. documented in this encounter [facility] 06-16-2022 Miscellaneous Notes Triage Protocol Recommended: Evaluation at [facility] today. To ER for severe symptoms. Reason [...] : - Protocols used: Abdominal Pain - [id number] documented in this encounter [facility] 01-26-2022 Note HNO ID: [id number] Author: Jocelyn Brunner PA-C Service: ? Author Type: Physician Metal Dresser Type: Progress Notes Filed: 01/26/2022 12:54 PM Note Text: This note was created using 91 [employer]. Subjective Eri Perdomo is a 16 year [...] (POC) - URINE CULTURE Jocelyn Brunner PA-C [facility] 01-26-2022 History of Presen t illness Narrative This note was created using 91 [employer]. Subjective Eri Perdomo is a 16 year [...] Jocelyn Brunner PA-C documented in this encounter [facility] 11-12-2021 Note HNO ID: [id number] Author: Rashel Maria MD Service: ? Author Type: Physician Type: Progress Notes Filed: 11/12/2021 10:43 AM Note Text: Express Care Triage Note: Patient presents to the [facility] care with complaint of she passed out at [place] yesterday. She thinks she hit her head and has a headache today. Normal speech and ambulation. Accompanied by her mother. Referred to primary care for evaluation of syncope. Proceed to the ER with worsening headache or other worrisome symptoms. [facility] 11-12-2021 History of Presen t illness Narrative Express Care Triage Note: Patient presents to the [facility] care with complaint of she passed out at [place] yesterday. She thinks she hit her head and has a headache today. Normal speech and ambulation. Accompanied by her mother. Referred to primary care for evaluation of syncope. Proceed to the ER with worsening headache or other worrisome symptoms. documented in this encounter [facility] documented as of this encounter (statuses as of 06/19/2022) [facility] History of Past illness Narrative* Problem Noted Date Resolved Date Syncope 09/03/2014 10/10/2018 Vasovagal syncope 09/03/2014 10/10/2018 Short stature 06/27/2007 05/25/2013 documented as of this encounter (statuses as of 11/12/2021) [facility] History of Past illness Narrative* Problem Noted Date Resolved Date Syncope 09/03/2014 10/10/2018 Vasovagal syncope 09/03/2014 10/10/2018 Short stature 06/27/2007 05/25/2013 documented as of this encounter (statuses as of 01/26/2022) [facility] History of Past illness Narrative* Problem Noted Date Resolved Date Syncope 09/03/2014 10/10/2018 Vasovagal syncope 09/03/2014 10/10/2018 Short stature 06/27/2007 05/25/2013 documented as of this encounter (statuses as of 06/16/2022) [facility] History of Past illness Narrative* Problem Noted Date Resolved Date Syncope 09/03/2014 10/10/2018 Vasovagal syncope 09/03/2014 10/10/2018 Short stature 06/27/2007 05/25/2013 documented as of this encounter (statuses as of 06/17/2022) [facility] note* Diagnosis Syncope, unspecified syncope type- Primary Headache, unspecified headache type documented in this encounter [facility] note* Diagnosis Burning with urination- Primary Dysuria documented in this encounter [facility] note* Diagnosis Syncope and collapse- Primary documented in this encounter [facility] note* Diagnosis Palpitations- Primary Panic attack Panic disorder without agoraphobia documented in this encounter [facility] Work Phone: Evaluation note* Diagnosis Palpitations documented in this encounter [facility] Work Phone: Summary Purpose Family History [...] Referral Specialty Diagnoses / Procedures Referred By Chalo ravi Referred To Contact Diagnoses Syncope and collapse Procedures CONSULT TO [facility] OFFICE/OUTPATIENT [facility] 60-74 MINUTES Braulio Kelly MD [address] [place] [address] Referral ID Status Reason Start Date Expiration Date Visits Requested Visits Authorized [id number] Authorized PCP Requested Referral 06/19/2022 06/19/2023 1 1 Additional Source Comments INFORMATION SOURCE (unrecogn ized section and content) DATE CREATED AUTHOR AUTHOR'S ORGANIZ ATION 01/25/2020 [facility] DATE CREATED AUTHOR AUTHOR'S ORGANIZ ATION 06/04/2022 [facility] DATE CREATED AUTHOR AUTHOR'S ORGANIZ ATION 06/10/2022 [facility] DATE CREATED AUTHOR AUTHOR'S ORGANIZ ATION 06/20/2022 [facility] DATE CREATED AUTHOR AUTHOR'S ORGANIZ ATION 01/30/2023 [facility] DATE CREATED AUTHOR AUTHOR'S ORGANIZ ATION 03/06/2023 [facility] DATE CREATED AUTHOR AUTHOR'S ORGANIZ ATION 04/05/2023 [facility] Source Comments (unrecognize d section and content) In the event this informatio n is protected by the Federal Confidentiality of Alcohol and Drug Abuse Patient Records regulations: The Federal rules restrict any use of the information to criminally investigate or prosecute any alcohol or drug abuse patient.[facility] the event this information is protected by the Federal Confidentiality of Alcohol and Drug Abuse Patient Records regulations: The Federal rules restrict any use of the information to criminally investigate or prosecute any alcohol or drug abuse patient.[facility] the event this information is protected by the Federal Confidentiality of Alcohol and Drug Abuse Patient Records regulations: The Federal rules restrict any use of the information to criminally investigate or prosecute any alcohol or drug abuse patient.[facility] the event this information is protected by the Federal Confidentiality of Alcohol and Drug Abuse Patient Records regulations: The Federal rules restrict any use of the information to criminally investigate or prosecute any alcohol or drug abuse patient.[facility] the event this information is protected by the Federal Confidentiality of Alcohol and Drug Abuse Patient Records regulations: The Federal rules restrict any use of the information to criminally investigate or prosecute any alcohol or drug abuse patient.[facility] Care Teams (unrecognized sec tion and content) House Wirer Helper Relationship Specialty Start Date End Date Rory Aguillon III, MD NO FORWARDING ADDRESS PCP - General 03 Reason for Visit (unrecogniz ed section and content) Reason Comments Back Pain Abdominal Pain Reason Comments Called Back Reason Comments ED Follow-up ER follow up [facility] 05/27. No PCP. <item> Privacy Markings (unrecogniz [...] BE BASED ON THE PRIMARY CLINICAL RECORDS. [facility] [employer] [facility]. provides no warranty or guarantee of the accuracy or completeness of information in this document.
[2023-05-09 20:08] LABS: Chlamydia By Nucleic Acid AMP Negative (Negative); Gonococcus By Nucleic Acid AMP Negative (Negative)
== END | disposition home or self-care (01) ==
PROVIDERS: Referring Provider Advanced Practice Midwife; Visit Provider Advanced Practice Midwife
DX: Z34.90 Encounter for supervision of normal pregnancy, unspecified, unspecified trimester (principal)
CPT/HCPCS: 87077; 87086; 87088; 87186; 87491; 87591

== ENCOUNTER → 2023-06-03 | Outpatient (CLI) | payer MEDICAID, SELFPAY ==
--- OUTSIDE RECORDS SUMMARY | 2023-06-03 17:54 | XMS RPT_ITS | CCD ---
Author Name Unknown Address [address] [place] [address] Organization [facility] Care Team Providers Care Adventure Therapist Name Role Phone ETELVINAFROILANZhen WILBURN Attending Unavailabl simone Aguillon III, MD, Rory A Primary Care Provider Malathi vailable Pal GALLO MD, Rory A Primary Care Provider Malathi vailable Required, No Pcp Unavailable Unavailable Bilderback, Ashanti Unavailable Unavailabl simone Mccoy, Ashanti Attending Unavaildavis Evans, Ms. Sherrie Dumont Attending Unavailable Bilderback, BETO Gabriel Referring Unavailable Unavailable Primary Care Provider Unavaildavis AGUILLON III, RORY A Primary Care Unavailable TONOBUL III, RORY A Primary Care Unavailable BRAULIO KELLY Attending Unavailable Unavailable Primary Care Provider UnavailRENETTA Pryor Attending Unavailable RENETTA PONCE Referring Unavailable MARIA TERESA GRAMAJO Attending Unava ilable NO, PHYSICIAN Primary Care Unavailable MARIA TERESA GRAMAJO Attending Unava ilable NO, PHYSICIAN Primary Care Unavailable BERNARD CARRENO Attending Unavail able NO, PHYSICIAN Primary Care Unavailable MICHAEL VAN Attending Unavailable NO, PHYSICIAN Primary Care Unavailable Medications Current Medications Medication Drug Class(es) [...] [episodic paroxysmal anxiety]] Onset: 03-04-2023 03-04-2023 Chronic Conditions associated with dizziness or vertigo (1 [...] Headache; Translations: [Headache, unspecified headache type] Episodic Other complications of (2 sources) Mild hyperemesis gravidarum; Translations: [Mild hyperemesis gravidarum] Onset: 05-31-2023 Episodic Other complications of (2 sources) Vomiting of , unspecified; Translations: [Vomiting of , unspecified] Onset: 05-23-2023 Episodic Past or Other Problems Problem Classification Problem Date Documented Da te Episodic/Chronic Cardiac dysrhythmias (9 sources) Palpitations; Translations: [Palpitations] Onset: 01-27-2023 03-04-2023 Episodic Other screening for suspected conditions (not mental [...] cm Braulio Kelly MD Work Phone: [facility] 06-19-2022 08:13-0500 Body temperature 96.21 [degF] Braulio Kelly MD Work Phone: [facility] 06-19-2022 08:13-0500 Body weight 48.26 kg Braulio Kelly MD Work Phone: [facility] 06-19-2022 08:13-0500 Diastolic blood pressure 58 mm[Hg] Braulio Kelly MD Work Phone: [facility] 06-19-2022 08:13-0500 Heart rate 84 /min Braulio Kelly MD Work Phone: [facility] 06-19-2022 08:13-0500 Respiratory rate 18 /min Braulio Kelly MD Work Phone: [facility] 06-19-2022 08:13-0500 SaO2% (BldA) [Mass fraction] 99 % Braulio Kelly MD Work Phone: [facility] 06-19-2022 08:13-0500 Systolic blood pressure 98 mm[Hg] Braulio Kelly MD Work Phone: [facility] 06-03-2022 14:00-0500 Diastolic blood pressure 65 mm[Hg] No Pcp Required [facility] 06-03-2022 14:00-0500 Heart rate 80 /min No Pcp Required [facility] 06-03-2022 14:00-0500 Respiratory rate 16 /min No Pcp Required [facility] 06-03-2022 14:00-0500 SaO2% (BldA) [Mass fraction] 98 % No Pcp Required [facility] 06-03-2022 14:00-0500 Systolic blood pressure 100 mm[Hg] No Pcp Required [facility] 06-03-2022 11:43-0500 Body height 162.5 cm No Pcp Required [facility] 06-03-2022 11:43-0500 Body temperature 98.24 [degF] No Pcp Required [facility] 06-03-2022 11:43-0500 Body weight 50 kg No Pcp Required [facility] 01-26-2022 10:56-0400 Body temperature 97.5 [degF] Jocelyn Brunner PA-C Work Phone: [facility] 01-26-2022 10:56-0400 Body weight 53.89 kg Jocelyn Athy PA-C Work Phone: [facility] 01-26-2022 10:56-0400 Diastolic blood pressure 64 mm[Hg] Jocelyn Athy PA-C Work Phone: [facility] 01-26-2022 10:56-0400 Heart rate 80 /min Jocelyn Athy PA-C Work Phone: [facility] 01-26-2022 10:56-0400 Respiratory rate 18 /min Jocelyn Athy PA-C Work Phone: [facility] 01-26-2022 10:56-0400 SaO2% (BldA) [Mass fraction] 98 % Jocelyn Athy PA-C Work Phone: [facility] 01-26-2022 10:56-0400 Systolic blood pressure 102 mm[Hg] Jocelyn Athy PA-C Work Phone: [facility] Encounters Encounter Date Encounter Type Care Provider Facility Start: 05-31-2023 End: 05-31-2023 [facility] Start: 05-23-2023 End: 05-24-2023 Emergency department patient visit MICHAEL DIAZ REHAN [facility] Start: 03-10-2023 End: 03-11-2023 ambulatory RENETTA PONCE [facility] Start: 03-10-2023 End: 03-10-2023 Subsequent hospital visit by physician [facility] Procedures Date Procedure Procedure Detail Performing Clinician Start: 03-10-2023 HOLTER OR EVENT CARD IAC MONITOR RENETTA PONCE Start: 06-03-2022 End: 06-03-2022 EKG impression Michael Frye Start: 01-26-2022 Urnls dip stick/tabl et rgnt auto w/o microscopy Missy Leon APRN.BETO Work Phone: Start: 10-10-2018 Adult depression screening assessment Rashel Maria MD Work Phone: Plan of Treatment Date Care Activity Detail Author Start: 2053 Zoster Vaccines (1 of 2) Zoster Vaccines (1 of 2) [facility] Start: 10-04-2026 DTaP/Tdap/Td Vaccines (7 - Td or Tdap) DTaP/Tdap/Td Vaccines (7 - Td or Tdap) [facility] Start: 10-04-2026 Urine microalbumin profile DTAP,TDAP,TD (7 - Td or Tdap) [facility] Start: 03-04-2023 End: 03-04-2024 Holter monitor study Holter Or Event Low Pressure [facility] Routine Palpitations Expected: 03/04/2023 (Approximate), Expires: 03/04/2024 [facility] Service Area Work Phone: Immunizations Immunization Date Immunization Notes Care Provider Ramón herrera 06-28-2017 Human Papillomavirus 9-valent vaccine Rashel Maria MD Work Phone: [facility] Work Phone: 10-04-2016 human papilloma viru s vaccine, quadrivalent Rashel Maria MD Work Phone: [facility] 10-04-2016 meningococcal polysaccharide (groups A, C, Y and W-135) diphtheria toxoid conjugate vaccine (MCV4P) Rashel Maria MD Work Phone: [facility] 10-04-2016 tetanus toxoid, redu marisa diphtheria toxoid, and acellular pertussis vaccine, adsorbed Rashel Maria MD Work Phone: [facility] 12-02-2008 measles, mumps and rubella virus vaccine Rashel Maria MD Work Phone: [facility] Work Phone: 12-02-2008 varicella virus vaccine Tono Maria MD Work Phone: [facility] Work Phone: 07-10-2008 diphtheria, tetanus toxoids and acellular pertussis vaccine Rashel Maria MD Work Phone: [facility] Work Phone: 07-10-2008 pneumococcal conjuga te vaccine, 7 valent Rashel Maria MD Work Phone: [facility] Work Phone: 07-10-2008 poliovirus vaccine, inactivated Rashel Maria MD Work Phone: [facility] Work Phone: 07-10-2008 varicella virus vaccine Tono Maria MD Work Phone: [facility] Work Phone: 07-12-2006 diphtheria, tetanus toxoids and acellular pertussis vaccine Rashel Maria MD Work Phone: [facility] 07-12-2006 DTaP-Haemophilus influenzae type b conjugate vaccine Renetta SHARMA DNP Work Phone: [facility] Work Phone: 07-12-2006 haemophilus influenz ae type b vaccine, HbOC conjugate Rashel Maria MD Work Phone: [facility] 07-12-2006 measles, mumps and rubella virus vaccine Rashel Maria MD Work Phone: [facility] 05-13-2004 DTaP-hepatitis B and poliovirus vaccine Rashel Maria MD Work Phone: [facility] Work Phone: 05-13-2004 haemophilus influenz ae type b vaccine, HbOC conjugate Rashel Maria MD Work Phone: [facility] Work Phone: 05-13-2004 haemophilus influenz ae type b vaccine, PRP-T conjugate Renetta SHARMA DNP Work Phone: [facility] Work Phone: 05-13-2004 hepatitis B vaccine, pediatric or pediatric/adolescent dosage Rashel Maria MD Work Phone: [facility] Work Phone: 05-03-2004 pneumococcal conjuga te vaccine, 13 valent Renetta SHARMA DNP Work Phone: [facility] Work Phone: 05-03-2004 pneumococcal conjuga te vaccine, 7 valent Rashel Maria MD Work Phone: [facility] Work Phone: 2003 DTaP-hepatitis B and poliovirus vaccine Rashel Maria MD Work Phone: [facility] Work Phone: 2003 haemophilus influenz ae type b vaccine, HbOC conjugate Rashel Maria MD Work Phone: [facility] Work Phone: 2003 haemophilus influenz ae type b vaccine, PRP-T conjugate Renetta SHARMA DNP Work Phone: [facility] Work Phone: 2003 pneumococcal conjuga te vaccine, 13 valent Renetta SHARMA DNP Work Phone: [facility] Work Phone: 2003 pneumococcal conjuga te vaccine, 7 valdeysi Maria MD Work Phone: [facility] Work Phone: 2003 DTaP-hepatitis B and poliovirus vaccine Rashel Maria MD Work Phone: [facility] Work Phone: 2003 haemophilus influenz ae type b vaccine, HbOC conjugate Rashel Maria MD Work Phone: [facility] Work Phone: 2003 haemophilus influenz ae type b vaccine, PRP-T conjugate Renetta SHARMA DNP Work Phone: [facility] Work Phone: 2003 pneumococcal conjuga te vaccine, 7 valdeysi Maria MD Work Phone: [facility] Work Phone: 2003 hepatitis B vaccine, pediatric or pediatric/adolescent dosage Rashel Maria MD Work Phone: [facility] Work Phone: Payers Date Payer Category Payer Private Health Insurance [id number] 2020 Unknown [employer] PPO OOS [id number] 2020-Present [phone] [address] [place] [address] PPO [id number] 2020 Unknown [id number] 2020 Unknown [id number] 2003 Unknown [id number] 2003 Unknown [id number] 2003 Unknown [id number] 2003 Unknown [id number] Self-pay Social History Date Type Detail Facility Start: 05-27-2018 End: 03-04-2023 Tobacco smoking status NHIS Never smoked tobacco [facility] Start: 05-27-2018 End: 03-04-2023 Tobacco use and exposure Smokeless tobacco non-user [facility] Start: 01-13-2021 End: 06-19-2022 Alcohol intake Current non-drinker of alcohol (finding) [facility] Start: 2003 Sex Assigned At Not on file [facility] Start: 11-02-2021 End: 03-10-2023 Exposure to SARS-CoV-2 (event) Not sure [facility] History of tobacco use Passive smoker [facility] Tobacco smoking consumption unknown [facility] Start: 03-04-2023 Gender identity Not on file [facility] Work Phone: Start: 03-04-2023 Alcohol intake Lifetime non-d chino (finding) [facility] Work Phone: Start: 03-04-[address] [facility] Work Phone: Clinical Notes 09-03-2014 to 03-04-2023 Renetta Ponce APRN-BETO, DNP - 03/04/2023 2:15 PM Brenden Kelly MD - 06/19/2022 8:45 AM ESTTelephone Encounter - Katlyn Bruner RN - 06/17/2022 11:01 AM EST Note Date & Type Note Facility 03-04-2023 History of Presen t illness Narrative [facility] CARDIOLOGY OFFICE VISIT CHIEF COMPLAINT Establish [...] of her chest. 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 ABO: No results for input(s): ABO in the last 65956 hours. HEME/ENDO:No results for input(s): FERRITIN , IRONSAT , TSH , HGBA1C in the last 38966 hours. CARDIAC: No results for input(s): LDH , CKMB , TROPHS , BNP in the last 35716 hours. No lab exists for component: CK , CKMBP No results for input(s): CHOL , LDLF , HDL , TRIG in the last 53284 hours. MICRO: No results for input(s): ESR , CRP , PROCAL in the last 87052 hours. No results found for the last [...] the patient's care. Renetta Ponce DNP, TANIA, APPLICATION SUPPORT ENGINEER-C Division of Cardiovascular Medicine [facility] documented in this encounter [facility] Work Phone: 06-19-2022 Note HNO ID: [id number] Author: Braulio Kelly MD Service: ? Author Type: Physician Type: Progress Notes Filed: 06/19/2022 8:58 AM Note Text: This note was created using Twice. Subjective Eri Veras is a 17 year old female here with her grandmother. She was seen in [facility] 06/17/22 for syncope. Labs, including cardiac work up was negative. She was also in [facility] 06/03/22. Work up was negative other than positive for cannabinoids. She was in [facility] 10/2021 for the same. No triggers [...] [facility] TO [facility] Braulio Kelly MD [facility] 06-19-2022 History of Presen t illness Narrative This note was created using Nuevo Midstreamter. Subjective Eri Veras is a 17 year old female here with her grandmother. She was seen in [place] [facility] 06/17/22 for syncope. Labs, including cardiac work up was negative. She was also in [facility] 06/03/22. Work up was negative other than positive for cannabinoids. She was in [facility] 10/2021 for the same. No triggers [...] Kelly MD documented in this encounter [facility] 06-17-2022 Miscellaneous Notes Returned call to [...] the ER. documented in this encounter [facility] 06-16-2022 Miscellaneous Notes Triage Protocol Recommended: Evaluation at [facility] today. To ER for severe symptoms. Reason [...] : - Protocols used: Abdominal Pain - [id number] documented in this encounter [facility] 01-26-2022 Note HNO ID: [id number] Author: Jocelyn Brunner PA-C Service: ? Author Type: Physician Desk Representative Type: Progress Notes Filed: 01/26/2022 12:54 PM Note Text: This note was created using CoolCloudsriter. Subjective Eri Veras is a 16 year old female. HPI [...] (POC) - URINE CULTURE Jocelyn Brunner PA-C [facility] 01-26-2022 History of Presen t illness Narrative This note was created using CoolCloudsriter. Subjective Eri Veras is a 16 year old female. HPI [...] Brunner PA-C documented in this encounter [facility] 11-12-2021 Note HNO ID: [id number] Author: Rashel Maria MD Service: ? Author Type: Physician Type: Progress Notes Filed: 11/12/2021 10:43 AM Note Text: Express [facility] Triage Note: Patient presents to the [facility] with complaint of she passed out at [place] yesterday. She thinks she hit her head and has a headache today. Normal speech and ambulation. Accompanied by her mother. Referred to primary care for evaluation of syncope. Proceed to the ER with worsening headache or other worrisome symptoms. [facility] 11-12-2021 History of Presen t illness Narrative Express [facility] Triage Note: Patient presents to the [facility] with complaint of she passed out at [place] yesterday. She thinks she hit her head and has a headache today. Normal speech and ambulation. Accompanied by her mother. Referred to primary care for evaluation of syncope. Proceed to the ER with worsening headache or other worrisome symptoms. documented in this encounter [facility] documented as of this encounter (statuses as of 06/19/2022) [address]12-[address] History of Past illness Narrative* Problem Noted Date Resolved Date Syncope 09/03/2014 10/10/2018 Vasovagal syncope 09/03/2014 10/10/2018 Short stature 06/27/2007 05/25/2013 documented as of this encounter (statuses as of 11/12/2021) [facility] History of Past illness Narrative* Problem Noted Date Resolved Date Syncope 09/03/2014 10/10/2018 Vasovagal syncope 09/03/2014 10/10/2018 Short stature 06/27/2007 05/25/2013 documented as of this encounter (statuses as of 01/26/2022) [facility] History of Past illness Narrative* Problem Noted Date Resolved Date Syncope 09/03/2014 10/10/2018 Vasovagal syncope 09/03/2014 10/10/2018 Short stature 06/27/2007 05/25/2013 documented as of this encounter (statuses as of 06/16/2022) [address] History of Past illness Narrative* Problem Noted Date Resolved Date Syncope 09/03/2014 10/10/2018 Vasovagal syncope 09/03/2014 10/10/2018 Short stature 06/27/2007 05/25/2013 documented as of this encounter (statuses as of 06/17/2022) [facility] note* Diagnosis Syncope, unspecified syncope type- Primary Headache, unspecified headache type documented in this encounter [facility] note* Diagnosis Burning with urination- Primary Dysuria documented in this encounter [facility] note* Diagnosis Syncope and collapse- Primary documented in this encounter [facility] note* Diagnosis Palpitations- Primary Panic attack Panic disorder without agoraphobia documented in this encounter [facility] Work Phone: Evaluation note* Diagnosis Palpitations documented in this encounter [facility] Work Phone: Summary Purpose Family History No [...] Specialty Diagnoses / Procedures Referred By Chalo t Referred To Contact Diagnoses Syncope and collapse Procedures [facility]ULT [facility] OFFICE/OUTPATIENT [facility] 60-74 MINUTES Braulio Kelly MD [address] [facility] [place] [address] Referral ID Status Reason Start Date Expiration Date Visits Requested Visits Authorized [id number] Authorized PCP Requested Referral 06/19/2022 06/19/2023 1 1 Additional Source Comments INFORMATION SOURCE (unrecogn ized section and content) DATE CREATED AUTHOR AUTHOR'S ORGANIZ ATION [facility] DATE CREATED AUTHOR AUTHOR'S ORGANIZ ATION 06/04/2022 [facility] DATE CREATED AUTHOR AUTHOR'S ORGANIZ ATION 06/10/2022 [facility] DATE CREATED AUTHOR AUTHOR'S ORGANIZ ATION 06/20/2022 [facility] DATE CREATED AUTHOR AUTHOR'S ORGANIZ ATION 03/06/2023 [facility] DATE CREATED AUTHOR AUTHOR'S ORGANIZ ATION 04/05/2023 [facility] DATE CREATED AUTHOR AUTHOR'S ORGANIZ ATION 06/01/2023 [facility] Source Comments (unrecognize d section and content) In the event this informatio n is protected by the Federal Confidentiality of Alcohol and Drug Abuse Patient Records regulations: The Federal rules restrict any use of the information to criminally investigate or prosecute any alcohol or drug abuse patient.[facility] the event this information is protected by the Federal Confidentiality of Alcohol and Drug Abuse Patient Records regulations: The Federal rules restrict any use of the information to criminally investigate or prosecute any alcohol or drug abuse patient.[facility] the event this information is protected by the Federal Confidentiality of Alcohol and Drug Abuse Patient Records regulations: The Federal rules restrict any use of the information to criminally investigate or prosecute any alcohol or drug abuse patient.[facility] the event this information is protected by the Federal Confidentiality of Alcohol and Drug Abuse Patient Records regulations: The Federal rules restrict any use of the information to criminally investigate or prosecute any alcohol or drug abuse patient.[facility] the event this information is protected by the Federal Confidentiality of Alcohol and Drug Abuse Patient Records regulations: The Federal rules restrict any use of the information to criminally investigate or prosecute any alcohol or drug abuse patient.[facility] Care Teams (unrecognized sec tion and content) Adventure Therapist Relationship Specialty Start Date End Date Rory Aguillon III, MD NO FORWARDING ADDRESS PCP - General 03 Reason for Visit (unrecogniz ed section and content) Reason Comments Back Pain Abdominal Pain Reason Comments Called Back Reason Comments ED Follow-up ER follow up [facility] 05/27. No PCP. <item> Privacy Markings (unrecogniz [...] BE BASED ON THE PRIMARY CLINICAL RECORDS. [employer] [facility]. provides no warranty or guarantee of the accuracy or completeness of information in this document.
== END | disposition home or self-care (01) ==
PROVIDERS: Referring Provider Advanced Practice Midwife; Visit Provider Advanced Practice Midwife
DX: O23.40 Unspecified infection of urinary tract in pregnancy, unspecified trimester (principal); Z3A.00 Weeks of gestation of pregnancy not specified
CPT/HCPCS: 87086; 87088

== ENCOUNTER 2023-06-06 09:20 | Outpatient (CLI) | payer OTHER, MEDICAID, SELFPAY ==
[2023-06-06] MEDS: Dextrose 5%-Lactated Ringers 1,000 ML 999 ML IV (09:39)
[2023-06-06] MEDS: Ondansetron 4 MG/2 ML Vial IV (09:41)
[2023-06-06 09:45] VITALS: BP 100/70; PULSE 84; RESP 16; TEMP 36.8; BMI 17.2
--- OUTSIDE RECORDS SUMMARY | 2023-06-06 09:52 | XMS RPT_ITS | CCD ---
Author Name Unknown Address [address] [place] [address] Organization [facility] Care Team Providers Care Retail Sales Assistant Name Role Phone ETELVINAFROILANZhen WILBURN Attending Unavailabl [...] pressure 65 mm[Hg] No Pcp Required [facility] 06-03-2022 14:00-0500 Heart rate 80 /min No Pcp Required [facility] 06-03-2022 14:00-0500 Respiratory rate 16 /min No Pcp Required [facility] 06-03-2022 14:00-0500 SaO2% (BldA) [Mass fraction] 98 % No Pcp Required [facility] 06-03-2022 14:00-0500 Systolic blood pressure 100 mm[Hg] No Pcp Required [facility] 06-03-2022 11:43-0500 Body height 162.5 cm No Pcp Required [facility] 06-03-2022 11:43-0500 Body temperature 98.24 [degF] No Pcp Required [facility] 06-03-2022 11:43-0500 Body weight 50 kg No Pcp Required [facility] 01-26-2022 10:56-0400 Body temperature 97.5 [degF] Jocelyn Brunner PA-C Work Phone: [facility] 01-26-2022 10:56-0400 Body weight 53.89 kg Jocelyn Athy PA-C Work Phone: [facility] 01-26-2022 10:56-0400 Diastolic blood pressure 64 mm[Hg] Jocelyn Athy PA-C Work Phone: [facility] 01-26-2022 10:56-0400 Heart rate 80 /min Jocelyn Athy PA-C Work Phone: [facility] 01-26-2022 10:56-0400 Respiratory rate 18 /min Jocelyn Athy PA-C Work Phone: [facility] 01-26-2022 10:56-0400 SaO2% (BldA) [Mass fraction] 98 % Jocelyn Athy PA-C Work Phone: [facility] 01-26-2022 10:56-0400 Systolic blood pressure 102 mm[Hg] Jocelyn Athy PA-C Work Phone: [facility] Encounters Encounter Date Encounter Type Care Provider Facility Start: 05-31-2023 End: 05-31-2023 [facility]: 05-23-2023 End: 05-24-2023 Emergency department patient visit MICHAEL DIAZ REHAN [facility] Start: 03-10-2023 End: 03-11-2023 ambulatory RENETTA PONCE [facility] Start: 03-10-2023 End: 03-10-2023 Subsequent hospital visit by physician [facility] Procedures Date Procedure Procedure Detail Performing [...] of 2) Zoster Vaccines (1 of 2) [facility] Start: 10-04-2026 DTaP/Tdap/Td Vaccines (7 - Td or Tdap) DTaP/Tdap/Td Vaccines (7 - Td or Tdap) [facility] Start: 10-04-2026 Urine microalbumin profile DTAP,TDAP,TD (7 - Td or Tdap) [facility] Start: 03-04-2023 End: 03-04-2024 Holter monitor study Holter Or Event [facility] Routine Palpitations Expected: 03/04/2023 (Approximate), Expires: 03/04/2024 [facility] Service Area Work Phone: Immunizations Immunization [...] conjugate vaccine Renetta SHARMA DNP Work Phone: [facility] Work Phone: 07-12-2006 haemophilus influenz ae [...] PRP-T conjugate Renetta SHARMA DNP Work Phone: [facility] Work Phone: 05-13-2004 hepatitis B vaccine, pediatric or pediatric/adolescent dosage Rashel Maria MD Work Phone: [facility] Work Phone: 05-03-2004 pneumococcal conjuga te vaccine, 13 valent Renetta SHARMA DNP Work Phone: [facility] Work Phone: 05-03-2004 pneumococcal conjuga te [...] PRP-T conjugate Renetta SHARMA DNP Work Phone: [facility] Work Phone: 2003 pneumococcal conjuga te vaccine, 13 valent Renetta SHARMA DNP Work Phone: [facility] Work Phone: 2003 pneumococcal conjuga te vaccine, 7 valdeysi Maria MD Work Phone: [facility] Work Phone: 2003 DTaP-hepatitis B and poliovirus vaccine Rashel Maria MD Work Phone: [facility] Work Phone: 2003 haemophilus influenz ae type b vaccine, HbOC conjugate Rashel Maria MD Work Phone: [facility] Work Phone: 2003 haemophilus influenz ae type b vaccine, PRP-T conjugate Renetta SHARMA DNP Work Phone: [facility] Work Phone: 2003 pneumococcal conjuga te vaccine, 7 valdeysi Maria MD Work Phone: [facility] Work Phone: 2003 hepatitis B vaccine, pediatric or pediatric/adolescent dosage Rashel Maria MD Work Phone: [facility] Work Phone: Payers Date Payer Category Payer Private Health Insurance [id number] 2020 Unknown [employer] PPO OOS [id number] 2020-Present [phone] [address] [place] [address] PPO [id number] 2020 Unknown [id number] 2020 Unknown [id number] 2003 Unknown [id number] 2003 Unknown [id number] 2003 Unknown [id number] 2003 Unknown [id number] Self-pay Social History Date Type Detail Facility Start: 05-27-2018 End: 03-04-2023 Tobacco smoking status NHIS Never smoked tobacco [facility] Start: 05-27-2018 End: 03-04-2023 Tobacco use and exposure Smokeless tobacco non-user [facility] Start: 01-13-2021 End: 06-19-2022 Alcohol intake Current non-drinker of alcohol (finding) [facility] Start: 2003 Sex Assigned At Not on file [facility] Start: 11-02-2021 End: 03-10-2023 Exposure to SARS-CoV-2 (event) Not sure [facility] History of tobacco use Passive smoker [facility] Tobacco smoking consumption unknown [facility] Start: 03-04-2023 Gender identity Not on file [facility] Work Phone: Start: 03-04-2023 Alcohol intake Lifetime non-d chino (finding) [facility] Work Phone: Start: 03-04-2023 History of Social function [facility] Work Phone: Clinical Notes 09-03-2014 to 03-04-2023 Renetta Ponce APRN-BETO, DNP - 03/04/2023 2:15 PM Brenden Kelly MD - 06/19/2022 8:45 AM ESTTelephone Encounter - Katlyn Bruner RN - 06/17/2022 11:01 AM EST Note Date & Type Note Facility 03-04-2023 History of Presen t illness Narrative [facility] CARDIOLOGY OFFICE VISIT CHIEF COMPLAINT Establish care [...] of her chest. 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 ABO: No results for input(s): ABO in the last 67815 hours. HEME/ENDO:No results for input(s): FERRITIN , IRONSAT , TSH , HGBA1C in the last 76610 hours. CARDIAC: No results for input(s): LDH , CKMB , TROPHS , BNP in the last 26946 hours. No lab exists for component: CK , CKMBP No results for input(s): CHOL , LDLF , HDL , TRIG in the last 50723 hours. MICRO: No results for input(s): ESR , CRP , PROCAL in the last 39521 hours. No results found for the last [...] the patient's care. Renetta Ponce DNP, TANIA, ASBESTOS REMOVER-C Division of Cardiovascular Medicine [facility] documented in this encounter [facility] Work Phone: 06-19-2022 Note HNO ID: [id number] Author: Braulio Kelly MD Service: ? Author Type: Physician Type: Progress Notes Filed: 06/19/2022 8:58 AM Note Text: This note was created using [employer] Software. Subjective Eri Veras is a 17 year old female here with her grandmother. She was seen in [facility] 06/17/22 for syncope. Labs, including cardiac work up was negative. She was also in [facility] 06/03/22. Work up was negative other than positive for cannabinoids. She was in [facility] 10/2021 for the same. No triggers [...] CONSULT TO [facility] Braulio Kelly MD [facility] 06-19-2022 History of Presen t illness Narrative This note was created using PostRocketter. Subjective Eri Veras is a 17 year old female here with her grandmother. She was seen in [facility] 06/17/22 for syncope. Labs, including cardiac work up was negative. She was also in [facility] 06/03/22. Work up was negative other than positive for cannabinoids. She was in [facility] 10/2021 for the same. No triggers [...] Miscellaneous Notes Triage Protocol Recommended: Evaluation at [facility] today. To ER for severe symptoms. [...] : - Protocols used: Abdominal Pain - [id number] documented in this encounter [facility] 01-26-2022 Note HNO ID: [id number] Author: Jocelyn Brunner PA-C Service: ? Author Type: Physician Desktop Support Manager Type: Progress Notes Filed: 01/26/2022 12:54 PM Note Text: This note was created using Bartlett Holdingsriter. Subjective Eri Veras is a 16 year [...] (POC) - URINE CULTURE Jocelyn Brunner PA-C [facility] 01-26-2022 History of Presen t illness Narrative This note was created using [employer]. Subjective Eri Veras is a 16 year [...] [facility] 11-12-2021 Note HNO ID: [id number] Author: Rashel Maria MD Service: ? Author Type: Physician Type: Progress Notes Filed: 11/12/2021 10:43 AM Note Text: Express Care Triage Note: Patient presents to the [facility] with complaint of she passed out at [place] yesterday. She thinks she hit her head and has a headache today. Normal speech and ambulation. Accompanied by her mother. Referred to primary care for evaluation of syncope. Proceed to the ER with worsening headache or other worrisome symptoms. [facility] 11-12-2021 History of Presen t illness Narrative Express Care Triage Note: Patient presents to the [facility] with complaint of she passed out at [place] yesterday. She thinks she hit her head and has a headache today. Normal speech and ambulation. Accompanied by her mother. Referred to primary care for evaluation of syncope. Proceed to the ER with worsening headache or other worrisome symptoms. documented in this encounter [facility] documented as of this encounter (statuses as of 06/19/2022) [address] History of Past illness Narrative* Problem [...] of this encounter (statuses as of 06/16/2022) [address] History of Past illness Narrative* Problem Noted Date Resolved Date Syncope 09/03/2014 10/10/2018 Vasovagal syncope 09/03/2014 10/10/2018 Short stature 06/27/2007 05/25/2013 documented as of this encounter (statuses as of 06/17/2022) [facility] note* Diagnosis Syncope, unspecified syncope type- Primary Headache, unspecified headache type documented in this encounter [facility] note* Diagnosis Burning with urination- Primary Dysuria documented in this encounter [facility] note* Diagnosis Syncope and collapse- Primary documented in this encounter [facility] note* Diagnosis Palpitations- Primary Panic attack Panic disorder without agoraphobia documented in this encounter [facility] Work Phone: Evaluation note* Diagnosis Palpitations documented in this encounter [facility] Work Phone: Summary Purpose Family History [...] collapse Procedures CONSULT TO [facility] OFFICE/OUTPATIENT [facility] 60-74 MINUTES Braulio Kelly MD [address] [facility] [place] [address] Referral ID Status Reason Start Date Expiration Date Visits Requested Visits Authorized [id number] Authorized PCP Requested Referral 06/19/2022 06/19/2023 1 1 Additional Source Comments INFORMATION SOURCE (unrecogn ized section and content) DATE CREATED AUTHOR AUTHOR'S ORGANIZ ATION [facility] DATE CREATED AUTHOR AUTHOR'S ORGANIZ ATION 06/04/2022 [facility] DATE CREATED AUTHOR AUTHOR'S ORGANIZ ATION 06/10/2022 [facility] DATE CREATED AUTHOR AUTHOR'S ORGANIZ ATION 06/20/2022 [facility] DATE CREATED AUTHOR AUTHOR'S ORGANIZ ATION 03/06/2023 [facility] DATE CREATED AUTHOR AUTHOR'S ORGANIZ ATION 04/05/2023 [facility] DATE CREATED AUTHOR AUTHOR'S ORGANIZ ATION 06/01/2023 [...] Care Teams (unrecognized sec tion and content) Retail Sales Assistant Relationship Specialty Start Date End Date Rory Aguillon III, MD NO FORWARDING ADDRESS PCP - General 03 Reason for Visit (unrecogniz ed section and content) Reason Comments Back Pain Abdominal Pain Reason Comments Called Back Reason Comments ED Follow-up ER follow up [facility] 05/27. No PCP. <item> Privacy Markings (unrecogniz [...] BE BASED ON THE PRIMARY CLINICAL RECORDS. [employer] [facility]. provides no warranty or guarantee of the accuracy or completeness of information in this document.
[2023-06-06 11:25] VITALS: BP 94/54; PULSE 60; RESP 16
[2023-06-06 11:33] LABS: Absolute Lymphocyte Count 1.26 X10^3/uL (0.83-4.51); Absolute Neutrophil Count 4.6 X10^3/uL (2.0-7.7); Basophil# 0.01 X10^3/uL; Basophil% 0.2 % (0-1); Eosinophil# 0.08 X10^3/uL; Eosinophils% 1.3 % (0-5); Hematocrit 30.5 % (37-47); Hemoglobin 10.6 g/dL (12.0-15.0); Lymphocyte # 1.26 X10^3/ul (0.83-4.51); Lymphocyte % 20.1 % (19-41); Mean Corp Hgb Conc 34.8 g/dL (32-36); Mean Corpuscular Volume 86.4 fL (81-99); Monocyte# 0.32 X10^3/uL; Monocyte% 5.1 % (0-10); NRBC Flagged by Analyzer 0 % (0-5); Neutrophil # 4.58 X10^3/uL (2.7-7.7); Neutrophil % 73.1 % (47-70); Platelet Count 198 K/mm3 (150-450); RBC Distribution Width CV 11.9 % (11.6-14.6); RBC Distribution Width SD 37.5 fl (35.1-43.9); Red Blood Count 3.53 M/mm3 (4.2-5.4); White Blood Count 6.3 K/mm3 (4.4-11.0)
[2023-06-06 13:20] LABS: HIV - WCH Non-Reactive (Nonreactive); Hepatitis B Surface Antigen Non-Reactive (Nonreactive); Hepatitis C Antibody Non-Reactive (Nonreactive); Rubella IgG Reactive (Nonreactive); Syphilis Antibodies Non-reactive
== END 2023-06-06 09:21 | disposition home or self-care (01) ==
LOC: MEDOUTP 09:25
PROVIDERS: Referring Provider Advanced Practice Midwife; Visit Provider Advanced Practice Midwife
DX: Z34.81 Encounter for supervision of other normal pregnancy, first trimester (principal); E86.0 Dehydration
CPT/HCPCS: 96365; 96366; 96375; 36415; 85025; 86703; 86762; 86780; 86803; 86850; 86900; 86901; 87340; A4216; J2405

== ENCOUNTER 2023-06-18 19:59 | Emergency (ER) | payer OTHER, MEDICAID, SELFPAY ==
[2023-06-18 20:00] VITALS: BP 111/87; PULSE 124; RESP 16; TEMP 36.6; O2SAT 99; BMI 16.1
--- NOTE | 2023-06-18 20:08 | EX.ED.DYSGE1 ---
HPI History of Present Illness Chief Complaint: General Illness Informant: patient, spouse/S.O. and family Onset/Context/Timing Onset: Weeks (2) Context: Gradual Onset Timing: Continuous Quality: Aching, sharp Location: Epigastric Worsened by: Nothing Relieved by: Nothing Narrative Narrative: Patient presents with nausea, vomiting, and abdominal pain that has been constant for the past 2 weeks. Patient states her pain is mainly over the epigastric and upper abdomen. Patient describes her pain as aching and sharp. Patient is 14 weeks . Patient denies any abnormal vaginal bleeding or discharge. Patient denies any hematemesis or coffee-ground emesis. Patient denies any diarrhea, melena, or hematochezia. Patient denies any urinary complaints. Patient denies any fevers or chills. PFSH PFSH Home Medications multivit-min no.71-iron fum 28 mg-folate no.1 1 mg-dha 300 mg capsule (PNV-[place]) 1 cap PO DAILY 04/28/23 [History Last Taken Unknown] ondansetron 4 mg disintegrating tablet 4 mg PO Q6H #30 tabs 05/06/23 [Rx Last Taken Unknown] nitrofurantoin monohydrate/macrocrystals 100 mg capsule 100 mg PO Q12 #14 CAPSULES 06/18/23 [Rx Last Taken Unknown] Allergy/AdvReac Type Severity Reaction Status Date / Time No Known Allergies Allergy Verified 06/18/23 20:03 Family History Sister Seizures Brother Autism Surgical History no surgical history no surgical history Social History adopted: No household members: significant other current occupational status: employed 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 current occupational exposures/hazards: No pets and animals: Yes pets and animals: dog(s) history of recent travel: Yes ([place]) out of state: Yes out of country: No sexually active: Yes Smoking Status: Never smoker alcohol intake: never substance use type: does not use well-balanced diet: rarely or never caffeine: No eating out: rarely or never during the past year weight has: remained stable what type of physical activity do you participate in: none manuel/islam: None seatbelt use: always do you feel safe at home: Yes additional social history: BF [place] ROS ROS ED Constitutional Constitutional ED: Denies chills or fever(s) Eyes Eyes: Denies blurry vision or change in vision ENT ENT ED: Reports sore throat; Denies rhinorrhea Cardiovascular Cardiovascular: Denies chest pain or palpitations Respiratory/Chest Respiratory/Chest: Denies cough or dyspnea Gastrointestinal Gastrointestinal: Reports abdominal pain, nausea and vomiting; Denies diarrhea or melena Genitourinary Genitourinary ED: Denies dysuria or hematuria Musculoskeletal Musculoskeletal: Reports back pain; Denies neck pain Integumentary Denies abscess or rash Neurologic Neurologic: Reports headache(s); Denies weakness Allergic/Immunologic Allergic/Immunologic ED: Denies mouth swelling or urticaria EXAM Physical Exam Const Vital Signs: 06/18/23 20:00 06/18/23 20:08 06/18/23 21:00 Temperature 97.8 F 98 F Temperature Source Temporal Temporal Pulse Rate 124 H 68 Respiratory Rate 16 12 Respiratory Pattern Normal Blood Pressure 111/87 H 93/65 Blood Pressure Mean 95 74 Pulse Ox 99 100 Oxygen Delivery Method Room Air Room Air Positive well nourished and well developed General Appearance ED: well developed and NAD HEENT Reports moist mucous membranes Neck supple and no JVD Resp normal respiratory effort and clear to auscultation bilaterally Cardio regular rhythm Rate: tachycardic GI non-distended Palpation: soft and tender epigastric, LUQ, RUQ, periumbilical and suprapubic; Negative for guarding or rebound tenderness present Neuro oriented x3, CN's II-XII intact bilaterally and no sensory deficits noted Sensorium / Orientation: alert Motor Exam: strength 5/5 throughout Psych mental status grossly normal MDM MDM MDM Narrative Medical decision making narrative: Differential diagnosis includes viral infection, gastroenteritis, dehydration, urinary tract infection, hyperemesis gravidarum, and gastritis. CBC will be obtained to assess for leukocytosis and anemia. Comprehensive metabolic profile will be obtained to assess for hepatic function, renal function, and electrolyte abnormality. Quantitative hCG will be obtained to assess for status. Urinalysis will be obtained to assess for urinary tract infection and hematuria. Lab Data Attestation: I reviewed the patient's lab results. Lab results narrative: CBC was reviewed and was within normal limits. Comprehensive metabolic profile was reviewed and was within normal limits. Lipase was reviewed and was normal. Quantitative hCG was reviewed and was 52,094. Urinalysis was reviewed. Leukocyte esterase was 500 with positive nitrites. There were 50-100 white blood cells and 4+ bacteria. Labs: Laboratory Results - last 24 hr 06/18/23 06/18/23 20:23 21:16 WBC 6.1 RBC 4.77 Hgb 14.3 Hct 41.3 MCV 86.6 MCH 30.0 MCHC 34.6 RDW Std Deviation 38.2 RDW Coeff of Billy 12.1 Plt Count 260 MPV 9.8 Immature Gran % (Auto) 0.300 Neut % (Auto) 73.6 H Lymph % (Auto) 18.8 L [place] % (Auto) 5.9 Eos % (Auto) 1.1 Baso % (Auto) 0.3 Absolute Neuts (auto) 4.5 Absolute Lymphs (auto) 1.15 Nucleated RBC % 0 Sodium 136 Potassium 4.0 Chloride 105 Carbon Dioxide 26.0 Anion Gap 5 BUN 7 Creatinine 0.68 Estim Creat Clear Calc 88.83 Est GFR (MDRD) Af Amer 143 Est GFR (MDRD) Non-Af 118 BUN/Creatinine Ratio 10.3 Glucose 140 H Calcium 9.5 Total Bilirubin 0.50 AST 11 L ALT 11 L Alkaline Phosphatase 43 L Total Protein 7.4 Albumin 3.5 Globulin 3.9 Albumin/Globulin Ratio 0.9 Lipase 31 HCG, Quant 02449 H Urine Color Yellow Urine Clarity Cloudy Urine pH 6.0 Ur Specific [place] 1.025 Urine Protein 30 H Urine Glucose (UA) Normal Urine Ketones 50 H Urine Occult Blood 10 H Urine Nitrite Positive H Urine Bilirubin Negative Urine Urobilinogen 4 H Ur Leukocyte Esterase 500 H Urine RBC 0-5 SEEN Urine WBC 50-100 SEEN Ur Squamous Epith Cells 5-10 SEEN Calcium Oxalate Crystal 1+ Urine Bacteria 4+ Urine Mucus 2+ Additional Tests and Interventions Additional Tests or Interventions: Urine culture was ordered. Treatment and Re-Evaluation :: Patient was given IV fluids. Patient was given Zofran. Patient was feeling better on reevaluation. Patient was given a dose of Macrobid here. Patient is given a prescription for Macrobid. Patient was instructed to follow-up with her primary care physician and GLOBAL SUPPLY CHAIN DIRECTOR in 3 to 5 days. Patient was instructed to eat a bland diet. Patient was instructed to return if worse in any way. Patient and family understood and were agreeable with the plan. All questions were answered. Discharge Plan Triage Chief Complaint: General Illness ED Provider: Geovanny Mccoy Dx/Rx/DC Orders Clinical Impression: UTI (urinary tract infection) during , Nausea & vomiting Instructions: ED Cystitis Female Adult, ED Vomiting (Adult) Prescriptions: New nitrofurantoin monohyd/m-cryst [nitrofurantoin monohyd/m-cryst] 100 mg capsule 100 mg PO Q12 Qty: 14 0RF No Action PNV-[place] 28-1-300 mg capsule 1 cap PO DAILY ondansetron 4 mg tablet,disintegrating 4 mg PO Q6H Qty: 30 3RF Primary Care Provider: Care Physician,No Primary Referrals: Debbie Nunez CNM [Med Staff - Adv Practice Prof] - 3-5 Days Care Physician,No Primary [Primary Care Provider] - Disposition Disposition: Home, Self Care
[2023-06-18] MEDS: 0.9% Normal Saline (1000mL) 1,000 ML 1000 ML IV (20:15)
[2023-06-18] MEDS: Ondansetron 4 MG/2 ML Vial IV (20:26)
[2023-06-18 20:28] LABS: Absolute Lymphocyte Count 1.15 X10^3/uL (0.83-4.51); Absolute Neutrophil Count 4.5 X10^3/uL (2.0-7.7); Basophil# 0.02 X10^3/uL; Basophil% 0.3 % (0-1); Eosinophil# 0.07 X10^3/uL; Eosinophils% 1.1 % (0-5); Hematocrit 41.3 % (37-47); Hemoglobin 14.3 g/dL (12.0-15.0); Lymphocyte # 1.15 X10^3/ul (0.83-4.51); Lymphocyte % 18.8 % (19-41); Mean Corp Hgb Conc 34.6 g/dL (32-36); Mean Corpuscular Volume 86.6 fL (81-99); Mean Platelet Vol. 9.8 fl (6.2-12.0); Monocyte# 0.36 X10^3/uL; Monocyte% 5.9 % (0-10); NRBC Flagged by Analyzer 0 % (0-5); Neutrophil % 73.6 % (47-70); Platelet Count 260 K/mm3 (150-450); RBC Distribution Width CV 12.1 % (11.6-14.6); RBC Distribution Width SD 38.2 fl (35.1-43.9); Red Blood Count 4.77 M/mm3 (4.2-5.4); White Blood Count 6.1 K/mm3 (4.4-11.0)
[2023-06-18 20:49] LABS: ALB/GLOB Ratio 0.9 RATIO (0.9-2.4); AST(SGOT) 11 U/L (15-37); Alanine Aminotransfer ALT/SGPT 11 U/L (13-56); Albumin, Serum 3.5 g/dL (3.2-5.0); Alkaline Phosphatase 43 U/L (45-117); Anion Gap 5 (5-15); BUN 7 mg/dL (7-18); BUN/Creat Ratio 10.3 RATIO (10-20); Calcium,Total 9.5 mg/dL (8.5-10.1); Chloride 105 mmol/L (98-107); Creatinine, Serum 0.68 mg/dL (0.55-1.02); EST Glomerular Filtration Rate 118 mL/min (>60); Est Glom Filt Rate - Afr Amer 143 mL/min (>60); Estimated Creatinine Clearance 88.83 ml/min; Globulin 3.9 g/dL (2.2-4.2); Glucose 140 mg/dL (74-106); Lipase 31 U/L (13-75); Protein, Total 7.4 g/dL (6.4-8.2); Sodium Level 136 mmol/L (136-145)
--- OUTSIDE RECORDS SUMMARY | 2023-06-18 20:55 | XMS RPT_ITS | CCD ---
Author Name Unknown Address [address] [place] [address] Organization [facility] Care Team Providers Care Locker Room Manager Name Role Phone ETELVINA ELZA WILBURN Attending Unavailabl e Pal GALLO MD, Rory A Primary Care Provider Malathi vailable Pal GALLO MD, Rory A Primary Care Provider Malathi vailable Required, No Pcp Unavailable Unavailable Bilderlandon, Ashanti Unavailable Unavailabl simone Mccoy, Ashanti Attending Unavaildavis Evans, Ms. Sherrie Dumont Attending Unavailable Bilderback, BETO Gabreil Referring Unavailable Unavailable Primary Care Provider Unavaildavis AGUILLON III, RORY A Primary Care Unavailable CEBUL III, RORY A Primary Care Unavailable BRAULIO KELLY Attending Unavailable Unavailable Primary Care Provider UnavailRENETTA Pryor Attending Unavailable RENETTA PONCE Referring Unavailable NO, PHYSICIAN Primary Care Unavailable MARIA TERESA GRAMAJO Attending Unava ilable MARIA TERESA GRAMAJO Attending Unava ilable YESI, PHYSICIAN Primary Care Unavailable NO, PHYSICIAN Primary Care Unavailable BERNARD CARRENO Attending Unavail able NO, PHYSICIAN Primary Care Unavailable MICHAEL VAN Attending Unavailable Medications Current Medications Medication Drug Class(es) [...] Braulio Kelly MD Work Phone: [facility] 06-19-2022 08:13-0500 Body temperature 96.21 [degF] Braulio Kelly MD Work Phone: [facility] 06-19-2022 08:13-0500 Body weight 48.26 kg Braulio Kelly MD Work Phone: [facility] 06-19-2022 08:13-0500 Diastolic blood pressure 58 mm[Hg] Braulio Kelly MD Work Phone: [facility] 06-19-2022 08:13-0500 Heart rate 84 /min Braulio Kelly MD Work Phone: [facility] 06-19-2022 08:13-0500 Respiratory rate 18 /min Braulio Kelly MD Work Phone: [facility] 06-19-2022 08:13-0500 SaO2% (BldA) [Mass fraction] 99 % Braulio Kelly MD Work Phone: [facility] 06-19-2022 08:13-0500 Systolic blood pressure 98 mm[Hg] Braulio Kelly MD Work Phone: [facility] 06-03-2022 14:00-0500 Diastolic blood pressure 65 mm[Hg] No Pcp Required [facility] 06-03-2022 14:00-0500 Heart rate 80 /min No Pcp Required [facility] 06-03-2022 14:00-0500 Respiratory rate 16 /min No Pcp Required [facility] 06-03-2022 14:00-0500 SaO2% (BldA) [Mass fraction] 98 % No Pcp Required [facility] 06-03-2022 14:00-0500 Systolic blood pressure 100 mm[Hg] No Pcp Required [facility] 06-03-2022 11:43-0500 Body height 162.5 cm No Pcp Required [facility] 06-03-2022 11:43-0500 Body temperature 98.24 [degF] No Pcp Required [facility] 06-03-2022 11:43-0500 Body weight 50 kg No Pcp Required [facility] 01-26-2022 10:56-0400 Body temperature 97.5 [degF] Jocelyn rBunner PA-C Work Phone: [facility] 01-26-2022 10:56-0400 Body weight 53.89 kg Jocelyn Athy PA-C Work Phone: [facility] 01-26-2022 10:56-0400 Diastolic blood pressure 64 mm[Hg] Jocelyn Athy PA-C Work Phone: [facility] 01-26-2022 10:56-0400 Heart rate 80 /min Jocelyn Athy PA-C Work Phone: [facility] 01-26-2022 10:56-0400 Respiratory rate 18 /min Jocelyn Athy PA-C Work Phone: [facility] 01-26-2022 10:56-0400 SaO2% (BldA) [Mass fraction] 98 % Jocelyn Athy PA-C Work Phone: [facility] 01-26-2022 10:56-0400 Systolic blood pressure 102 mm[Hg] Jocelyn Athy PA-C Work Phone: [facility] Encounters Encounter Date Encounter Type Care Provider Facility Start: 05-31-2023 End: 05-31-2023 Emergency department patient visit PHYSICIAN [facility] [place] Start: 05-23-2023 End: 05-24-2023 Emergency department patient visit PHYSICIAN [facility] [place] Start: 03-10-2023 End: 03-11-2023 ambulatory RENETTA PONCE [facility] Start: 03-10-2023 End: 03-10-2023 Subsequent hospital visit by physician Merritt Oh Seth [facility] Procedures Date Procedure Procedure Detail Performing Clinician Start: 03-10-2023 HOLTER OR EVENT CARD IAC MONITOR RENETTA PONCE Start: 06-03-2022 End: 06-03-2022 EKG impression Michael Uday Start: 01-26-2022 Urnls dip stick/tabl et rgnt auto w/o microscopy Missy Leon APRN.BETO Work Phone: Start: 10-10-2018 Adult depression screening assessment Rashel Maria MD Work Phone: Plan of Treatment Date Care Activity Detail Author Start: 01-23-2054 Zoster Vaccines (1 of 2) Zoster Vaccines (1 of 2) [facility] Start: 10-04-2026 DTaP/Tdap/Td Vaccines (7 - Td or Tdap) DTaP/Tdap/Td Vaccines (7 - Td or Tdap) [facility] Start: 10-04-2026 Urine microalbumin profile DTAP,TDAP,TD (7 - Td or Tdap) [facility] Start: 03-04-2023 End: 03-04-2024 Holter monitor study Holter Or Event Insight Director Cardiac Services Routine Palpitations Expected: 03/04/2023 (Approximate), Expires: 03/04/2024 [facility] Service Area Work Phone: Immunizations Immunization Date Immunization Notes Care Provider Fa cililyndsey 06-28-2017 Human Papillomavirus 9-valent vaccine Rashel Maria MD Work Phone: [facility] Work Phone: 10-04-2016 human papilloma viru s vaccine, quadrivalent Rashel Maria MD Work Phone: [facility] 10-04-2016 meningococcal polysaccharide (groups A, C, Y and W-135) diphtheria toxoid conjugate vaccine (MCV4P) Rashel Maria MD Work Phone: [facility] 10-04-2016 tetanus toxoid, redu marisa diphtheria toxoid, and acellular pertussis vaccine, adsorbed Rashel Maria MD Work Phone: [facility] 12-02-2008 measles, mumps and rubella virus vaccine Rashel Maria MD Work Phone: [facility] Work Phone: 12-02-2008 varicella virus vaccine Tono Maria MD Work Phone: [facility] Work Phone: 07-10-2008 diphtheria, tetanus toxoids and acellular pertussis vaccine Rashel Maria MD Work Phone: [facility] Work Phone: 07-10-2008 pneumococcal conjuga te vaccine, 7 valent Rashel Maria MD Work Phone: [facility] Work Phone: 07-10-2008 poliovirus vaccine, inactivated Rashel Maria MD Work Phone: [facility] Work Phone: 07-10-2008 varicella virus vaccine Tono Maria MD Work Phone: [facility] Work Phone: 07-12-2006 diphtheria, tetanus toxoids and acellular pertussis vaccine Rashel Maria MD Work Phone: [facility] 07-12-2006 DTaP-Haemophilus influenzae type b conjugate vaccine Renetta SHARMA DNP Work Phone: [facility] Work Phone: 07-12-2006 haemophilus influenz ae type b vaccine, HbOC conjugate Rashel Maria MD Work Phone: [facility] 07-12-2006 measles, mumps and rubella virus vaccine Rashel Maria MD Work Phone: [facility] 05-13-2004 DTaP-hepatitis B and poliovirus vaccine Rashel Maria MD Work Phone: [facility] Work Phone: 05-13-2004 haemophilus influenz ae type b vaccine, HbOC conjugate Rashel Maria MD Work Phone: [facility] Work Phone: 05-13-2004 haemophilus influenz ae type b vaccine, PRP-T conjugate Renetta SHARMA DNP Work Phone: [facility] Work Phone: 05-13-2004 hepatitis B vaccine, pediatric or pediatric/adolescent dosage Rashel Maria MD Work Phone: [facility] Work Phone: 05-03-2004 pneumococcal conjuga te vaccine, 13 valent Renetta SHARMA, DNP Work Phone: [facility] Work Phone: 05-03-2004 pneumococcal conjuga te vaccine, 7 valent Rashel Maria MD Work Phone: [facility] Work Phone: 2003 DTaP-hepatitis B and poliovirus vaccine Rashel Maria MD Work Phone: [facility] Work Phone: 2003 haemophilus influenz ae type b vaccine, HbOC conjugate Rashel Maria MD Work Phone: [facility] Work Phone: 2003 haemophilus influenz ae type b vaccine, PRP-T conjugate Renetta Ponce APRN-BETO, DNP Work Phone: [facility] Work Phone: 2003 pneumococcal conjuga te vaccine, 13 valent Renetta Ponce APRN-BETO, DNP Work Phone: [facility] Work Phone: 2003 pneumococcal conjuga te vaccine, 7 valent Rashel Maria MD Work Phone: [facility] Work Phone: 2003 DTaP-hepatitis B and poliovirus vaccine Rashel Maria MD Work Phone: [facility] Work Phone: 2003 haemophilus influenz ae type b vaccine, HbOC conjugate Rashel Maria MD Work Phone: [facility] Work Phone: 2003 haemophilus influenz ae type b vaccine, PRP-T conjugate Renetta SHARMA, DNP Work Phone: [facility] Work Phone: 2003 pneumococcal conjuga te vaccine, 7 valent Rashel Maria MD Work Phone: [facility] Work Phone: 2003 hepatitis B vaccine, pediatric or pediatric/adolescent dosage Rashel Maria MD Work Phone: [facility] Work Phone: Payers Date Payer Category Payer Private Health Insurance [id number] 2020 Unknown [employer] PPO OOS [id number] 2020-Present [phone] [address] [place] [address] PPO [id number] 2020 Unknown [id number] 2020 Unknown [id number] 2003 Unknown [id number] 2003 Unknown [id number] 2003 Unknown [id number] 2003 Unknown [id number] Self-pay Social History Date Type Detail Facility Start: 05-27-2018 End: 03-04-2023 Tobacco smoking status NHIS Never smoked tobacco [facility] Start: 05-27-2018 End: 03-04-2023 Tobacco use and exposure Smokeless tobacco non-user [facility] Start: 01-13-2021 End: 06-19-2022 Alcohol intake Current non-drinker of alcohol (finding) [facility] Start: 2003 Sex Assigned At Not on file [facility] Start: 11-02-2021 End: 03-10-2023 Exposure to SARS-CoV-2 (event) Not sure [facility] History of tobacco use Passive smoker [facility] Tobacco smoking consumption unknown [facility] Start: 03-04-2023 Gender identity Not on file [facility] Work Phone: Start: 03-04-2023 Alcohol intake Lifetime non-d chino (finding) [facility] Work Phone: Start: 03-04-2023 History of Social function [facility] Work Phone: Clinical Notes 09-03-2014 to 03-04-2023 Renetta Ponce, BOAT WASHER-AIRCRAFT ENGINEER, DNP - 03/04/2023 2:15 PM VIDAVicchad Kelly MD - 06/19/2022 8:45 AM ESTTelephone Encounter - Katlyn Bruner RN - 06/17/2022 11:01 AM EST Note Date & Type Note Facility 03-04-2023 History of Presen t illness Narrative [facility] VISIT CHIEF COMPLAINT Establish [...] of her chest. 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 ABO: No results for input(s): ABO in the last 26270 hours. HEME/ENDO:No results for input(s): FERRITIN , IRONSAT , TSH , HGBA1C in the last 00413 hours. CARDIAC: No results for input(s): LDH , CKMB , TROPHS , BNP in the last 97681 hours. No lab exists for component: CK , CKMBP No results for input(s): CHOL , LDLF , HDL , TRIG in the last 28895 hours. MICRO: No results for input(s): ESR , CRP , PROCAL in the last 65471 hours. No results found for the last [...] the patient's care. Renetta Ponce DNP, TANIA, SENIOR MANAGER QUALITY ASSURANCE-C Division of Cardiovascular Medicine [facility] documented in this encounter [facility] Work Phone: 06-19-2022 Note HNO ID: [id number] Author: Braulio Kelly MD Service: ? Author Type: Physician Type: Progress Notes Filed: 06/19/2022 8:58 AM Note Text: This note was created using Linkdex. Subjective Eri Veras is a 17 year old female here with her grandmother. She was seen in [place] [facility] 06/17/22 for syncope. Labs, including cardiac work up was negative. She was also in [facility] 06/03/22. Work up was negative other than positive for cannabinoids. She was in [place] [facility] 10/2021 for the same. No triggers are identified. She will get dizzy like vertigo, followed by loss of consciousness for a few minutes. She's had no major injury from syncopal spells. She regains consciousness with fleeting disorientation. She's had intermittent syncope for several years, but not this frequent. She had a normal echocardiogram in 2014 and normal EEG 2019. Review of Systems [...] CONSULT TO SYNCOPE CLINIC Braulio Kelly MD [facility] 06-19-2022 History of Presen t illness Narrative This note was created using Linkdex. Subjective Eri Veras is a 17 year old female here with her grandmother. She was seen in [place] [facility] 06/17/22 for syncope. Labs, including cardiac work up was negative. She was also in [facility] 06/03/22. Work up was negative other than positive for cannabinoids. She was in [place] [facility] 10/2021 for the same. No triggers [...] MD documented in this encounter [facility] 06-17-2022 Miscellaneous Notes Returned call to [...] ER. documented in this encounter [facility] 06-16-2022 Miscellaneous Notes Triage Protocol Recommended: Evaluation at [facility]. To ER for severe symptoms. Reason for [...] : - Protocols used: Abdominal Pain - [id number] documented in this encounter [facility] 01-26-2022 Note HNO ID: [id number] Author: Jocelyn Brunner PA-C Service: ? Author Type: Physician Clutch Rebuilder Type: Progress Notes Filed: 01/26/2022 12:54 PM Note Text: This note was created using ExtraOrthoriter. Subjective Eri Veras is a 16 year [...] (POC) - URINE CULTURE Jocelyn Brunner PA-C [facility] 10-04-2022 History of Presen t illness Narrative This note was created using BPTter. Subjective Eri Veras is a 16 year [...] PA-C documented in this encounter [facility] 11-12-2021 Note HNO ID: [id number] Author: Rashel Maria MD Service: ? Author Type: Physician Type: Progress Notes Filed: 11/12/2021 10:43 AM Note Text: Express [facility] Triage Note: [facility] of she passed out at [place] yesterday. She thinks she hit her head and has a headache today. Normal speech and ambulation. Accompanied by her mother. Referred to primary care for evaluation of syncope. Proceed to the ER with worsening headache or other worrisome symptoms. [facility] 11-12-2021 History of Presen t illness Narrative Express Care Triage Note: [facility] of she passed out at [place] yesterday. She thinks she hit her head and has a headache today. Normal speech and ambulation. Accompanied by her mother. Referred to primary care for evaluation of syncope. Proceed to the ER with worsening headache or other worrisome symptoms. documented in this encounter [facility] documented as of this encounter (statuses as of 06/19/2022) [facility] History of Past illness Narrative* Problem Noted Date Resolved Date Syncope 09/03/2014 10/10/2018 Vasovagal syncope 09/03/2014 10/10/2018 Short stature 06/27/2007 05/25/2013 documented as of this encounter (statuses as of 11/12/2021) [address]12-2015 History of Past illness Narrative* Problem Noted Date Resolved Date Syncope 09/03/2014 10/10/2018 Vasovagal syncope 09/03/2014 10/10/2018 Short stature 06/27/2007 05/25/2013 documented as of this encounter (statuses as of 01/26/2022) [facility] History of Past illness Narrative* Problem Noted Date Resolved Date Syncope 09/03/2014 10/10/2018 Vasovagal syncope 09/03/2014 10/10/2018 Short stature 06/27/2007 05/25/2013 documented as of this encounter (statuses as of 06/16/2022) [address] History of Past illness Narrative* Problem Noted Date Resolved Date Syncope 09/03/2014 10/10/2018 Vasovagal syncope 09/03/2014 10/10/2018 Short stature 06/27/2007 05/25/2013 documented as of this encounter (statuses as of 06/17/2022) [facility] note* Diagnosis Syncope, unspecified syncope type- Primary Headache, unspecified headache type documented in this encounter [facility] note* Diagnosis Burning with urination- Primary Dysuria documented in this encounter [facility] note* Diagnosis Syncope and collapse- Primary documented in this encounter [facility] note* Diagnosis Palpitations- Primary Panic attack Panic disorder without agoraphobia documented in this encounter [facility] Work Phone: Evaluation note* Diagnosis Palpitations documented in this encounter [facility] Work Phone: Summary Purpose Family History [...] collapse Procedures CONSULT TO SYNCOPE CLINIC OFFICE/OUTPATIENT NEW HIGH MDM 60-74 MINUTES Braulio Kelly MD [address] [facility] [address] Referral ID Status Reason Start Date Expiration Date Visits Requested Visits Authorized [id number] Authorized PCP Requested Referral 06/19/2022 06/19/2023 1 1 Additional Source Comments INFORMATION SOURCE (unrecogn ized section and content) DATE CREATED AUTHOR AUTHOR'S ORGANIZ ATION 01/25/2020 [facility] DATE CREATED AUTHOR AUTHOR'S ORGANIZ ATION 06/04/2022 [facility] DATE CREATED AUTHOR AUTHOR'S ORGANIZ ATION 06/10/2022 [facility] DATE CREATED AUTHOR AUTHOR'S ORGANIZ ATION 06/20/2022 [facility] DATE CREATED AUTHOR AUTHOR'S ORGANIZ ATION 03/06/2023 [facility] DATE CREATED AUTHOR AUTHOR'S ORGANIZ ATION 04/05/2023 [facility] DATE CREATED AUTHOR AUTHOR'S ORGANIZ ATION 06/06/2023 [facility] Source Comments (unrecognize d section and content) In the event this informatio n is protected by the Federal Confidentiality of Alcohol and Drug Abuse Patient Records regulations: The Federal rules restrict any use of the information to criminally investigate or prosecute any alcohol or drug abuse patient.[facility] the event this information is protected by the Federal Confidentiality of Alcohol and Drug Abuse Patient Records regulations: The Federal rules restrict any use of the information to criminally investigate or prosecute any alcohol or drug abuse patient.[facility] the event this information is protected by the Federal Confidentiality of Alcohol and Drug Abuse Patient Records regulations: The Federal rules restrict any use of the information to criminally investigate or prosecute any alcohol or drug abuse patient.[facility] the event this information is protected by the Federal Confidentiality of Alcohol and Drug Abuse Patient Records regulations: The Federal rules restrict any use of the information to criminally investigate or prosecute any alcohol or drug abuse patient.[facility] the event this information is protected by the Federal Confidentiality of Alcohol and Drug Abuse Patient Records regulations: The Federal rules restrict any use of the information to criminally investigate or prosecute any alcohol or drug abuse patient.[facility] Care Teams (unrecognized sec tion and content) Locker Room Manager Relationship Specialty Start Date End Date Rory Aguillon III, MD NO FORWARDING ADDRESS PCP - General 03 Reason for Visit (unrecogniz ed section and content) Reason Comments Back Pain Abdominal Pain Reason Comments Called Back Reason Comments ED Follow-up ER follow up [facility] 05/27. No PCP. <item> Privacy Markings [...] BE BASED ON THE PRIMARY CLINICAL RECORDS. [facility]. provides no warranty or guarantee of the accuracy or completeness of information in this document.
[2023-06-18 21:00] VITALS: BP 93/65; PULSE 68; RESP 12; TEMP 36.6; O2SAT 100
[2023-06-18 21:06] LABS: hCG Titer Quant., Serum 52094 mIU/mL (1-3)
[2023-06-18] MEDS: 0.9% Normal Saline (1000mL) 1,000 ML 999 ML IV (21:20)
[2023-06-18 21:28] LABS: Color, Urine Yellow (Yellow); Glucose, Dipstick Normal (Normal); Ketone-Dipstick 50 mg/dl (Negative); Leukocyte Esterase-Dipstick 500 /ul (Negative); Nitrite-Dipstick Positive (Negative); Occult Blood-Urine 10 /ul (Negative); Protein-Dipstick 30 mg/dl (Negative); Specific Gravity, Urine 1.025 (1.002-1.030); Urine Bilirubin Dipstick Negative (Negative); Urine Clarity Cloudy (Clear); Urine Urobilinogen 4 mg/dl (Normal)
[2023-06-18 21:34] LABS: Bacteria 4+ /hpf (None Seen); Calcium Oxalate Crystals Ur 1+ /hpf (<or=2+); White Blood Cells 50-100 SEEN /hpf (0-5)
[2023-06-18 21:35] LABS: Mucous, Urine 2+ /hpf (<or=2+); Red Blood Cells-Urine 0-5 SEEN /hpf (0-5); Squamous Epithelial Cells - UA 5-10 SEEN /hpf (5-10)
[2023-06-18] MEDS: Nitrofurantoin Macrocrystals 100 MG Capsule PO (22:43)
[2023-06-18 22:52] VITALS: BP 91/57; PULSE 71; RESP 15; TEMP 36.6; O2SAT 100
== END 2023-06-18 22:57 | disposition home or self-care (01) ==
PROVIDERS: Emergency Provider Emergency Medicine; Visit Provider Emergency Medicine
DX: O21.9 Vomiting of pregnancy, unspecified (principal); O23.42 Unspecified infection of urinary tract in pregnancy, second trimester; Z3A.14 14 weeks gestation of pregnancy
CPT/HCPCS: 80053; 81001; 83690; 84702; 85025; 87077; 87086; 87088; 87186; 96361; 96374; 99283; J7030; A4216; J2405

== ENCOUNTER 2023-06-22 13:45 | Outpatient (CLI) | payer OTHER, SELFPAY ==
[2023-06-22 14:18] VITALS: BP 98/61; PULSE 72; RESP 16; TEMP 36.6; O2SAT 98; BMI 16.2
[2023-06-22] MEDS: Dextrose 5%-Lactated Ringers 1,000 ML 999 ML IV (14:23)
[2023-06-22] MEDS: 0.9% NaCl Peripheral Flush Adult/Peds IV (14:23)
[2023-06-22] MEDS: Ondansetron 4 MG/2 ML Vial IV (14:24)
[2023-06-22 15:37] VITALS: BP 92/50; PULSE 63; RESP 16; TEMP 36.8; O2SAT 94
--- OUTSIDE RECORDS SUMMARY | 2023-06-22 23:12 | XMS RPT_ITS | CCD ---
Author Name Unknown Address [address] [place] [address] Organization [facility] Care Team Providers Care Hydrate Control Tender Name Role Phone ETELVINA ELZA WILBURN Attending [...] 162 cm Braulio Kelly MD Work Phone: [facility] 06-19-2022 08:13-0500 Body temperature 96.21 [degF] Braulio Kelly MD Work Phone: [facility] 06-19-2022 08:13-0500 Body weight 48.26 kg Braulio Kelly MD Work Phone: [facility] 06-19-2022 08:13-0500 Diastolic blood pressure 58 mm[Hg] Braulio Kelly MD Work Phone: [facility] 06-19-2022 08:13-0500 Heart rate 84 /min Braulio Kelly MD Work Phone: [facility] 06-19-2022 08:13-0500 Respiratory rate 18 /min Braulio Kelly MD Work Phone: [facility] 06-19-2022 08:13-0500 SaO2% (BldA) [Mass fraction] 99 % Braulio Kelly MD Work Phone: [facility] 06-19-2022 08:13-0500 Systolic blood pressure 98 mm[Hg] Braulio Kelly MD Work Phone: [facility] 06-03-2022 14:00-0500 Diastolic blood pressure 65 mm[Hg] No Pcp Required [facility] 06-03-2022 14:00-0500 Heart rate 80 /min No Pcp Required [facility] 06-03-2022 14:00-0500 Respiratory rate 16 /min No Pcp Required [facility] 06-03-2022 14:00-0500 SaO2% (BldA) [Mass fraction] 98 % No Pcp Required [facility] 06-03-2022 14:00-0500 Systolic blood pressure 100 mm[Hg] No Pcp Required [facility] 06-03-2022 11:43-0500 Body height 162.5 cm No Pcp Required [facility] 06-03-2022 11:43-0500 Body temperature 98.24 [degF] No Pcp Required [facility] 06-03-2022 11:43-0500 Body weight 50 kg No Pcp Required [facility] 01-26-2022 10:56-0400 Body temperature 97.5 [degF] Jocelyn Brunner PA-C Work Phone: [facility] 01-26-2022 10:56-0400 Body weight 53.89 kg Jocelyn Athy PA-C Work Phone: [facility] 01-26-2022 10:56-0400 Diastolic blood pressure 64 mm[Hg] Jocelyn Athy PA-C Work Phone: [facility] 01-26-2022 10:56-0400 Heart rate 80 /min Jocelyn Athy PA-C Work Phone: [facility] 01-26-2022 10:56-0400 Respiratory rate 18 /min Jocelyn Athy PA-C Work Phone: [facility] 01-26-2022 10:56-0400 SaO2% (BldA) [Mass fraction] 98 % Jocelyn Athy PA-C Work Phone: [facility] 01-26-2022 10:56-0400 Systolic blood pressure 102 mm[Hg] Jocelyn Athy PA-C Work Phone: [facility] Encounters Encounter Date Encounter Type Care Provider Facility Start: 05-31-2023 End: 05-31-2023 Emergency department patient visit PHYSICIAN [facility] Start: 05-23-2023 End: 05-24-2023 Emergency department patient visit PHYSICIAN [facility] Start: 03-10-2023 End: 03-11-2023 ambulatory RENETTA PONCE [facility] Start: 03-10-2023 End: 03-10-2023 Subsequent hospital visit by physician [address] [facility] Procedures Date Procedure Procedure Detail Performing [...] of 2) Zoster Vaccines (1 of 2) [facility] Start: 10-04-2026 DTaP/Tdap/Td Vaccines (7 - Td or Tdap) DTaP/Tdap/Td Vaccines (7 - Td or Tdap) [facility] Start: 10-04-2026 Urine microalbumin profile DTAP,TDAP,TD (7 - Td or Tdap) [facility] Start: 03-04-2023 End: 03-04-2024 Holter monitor study Holter Or Event [facility] Nurse Cardiac Services Routine Palpitations Expected: 03/04/2023 (Approximate), Expires: 03/04/2024 [facility] Service Area Work Phone: Immunizations Immunization Date Immunization Notes Care Provider Fa cililyndsey 06-28-2017 Human Papillomavirus 9-valent vaccine Rashel Maria MD Work Phone: [facility] Work Phone: 10-04-2016 human papilloma viru s vaccine, quadrivalent Rashel Maria MD Work Phone: [facility] 10-04-2016 meningococcal polysaccharide (groups A, C, Y and W-135) diphtheria toxoid conjugate vaccine (MCV4P) Rashel Maria MD Work Phone: [facility] 10-04-2016 tetanus toxoid, redu marisa diphtheria toxoid, and acellular pertussis vaccine, adsorbed Rashel Maria MD Work Phone: [facility] 12-02-2008 measles, mumps and rubella virus vaccine Rashel Maria MD Work Phone: [facility] Work Phone: 12-02-2008 varicella virus vaccine Tono Maria MD Work Phone: [facility] Work Phone: 07-10-2008 diphtheria, tetanus toxoids and acellular pertussis vaccine Rashel Maria MD Work Phone: [facility] Work Phone: 07-10-2008 pneumococcal conjuga te vaccine, 7 valent Rashel Maria MD Work Phone: [facility] Work Phone: 07-10-2008 poliovirus vaccine, inactivated Rashel Maria MD Work Phone: [facility] Work Phone: 07-10-2008 varicella virus vaccine Tono Maria MD Work Phone: [facility] Work Phone: 07-12-2006 diphtheria, tetanus toxoids and acellular pertussis vaccine Rashel Maria MD Work Phone: [facility] 07-12-2006 DTaP-Haemophilus influenzae type b conjugate vaccine Renetta SHARMA DNP Work Phone: [facility] Work Phone: 07-12-2006 haemophilus influenz ae type b vaccine, HbOC conjugate Rashel Maria MD Work Phone: [facility] 07-12-2006 measles, mumps and rubella virus vaccine Rashel Maria MD Work Phone: [facility] 05-13-2004 DTaP-hepatitis B and poliovirus vaccine Rashel Maria MD Work Phone: [facility] Work Phone: 05-13-2004 haemophilus influenz ae type b vaccine, HbOC conjugate Rashel aMria MD Work Phone: [facility] Work Phone: 05-13-2004 haemophilus influenz ae type b vaccine, PRP-T conjugate Renetta SHARMA DNP Work Phone: [facility] Work Phone: 05-13-2004 hepatitis B vaccine, pediatric or pediatric/adolescent dosage Rashel Maria MD Work Phone: [facility] Work Phone: 05-03-2004 pneumococcal conjuga te vaccine, 13 valent Renetta SHARMA, DNP Work Phone: [facility] Work Phone: 05-03-2004 pneumococcal conjuga te vaccine, 7 valent Rashel Maria MD Work Phone: [facility] Work Phone: 2003 DTaP-hepatitis B and poliovirus vaccine Rashel Maria MD Work Phone: [facility] Work Phone: 2003 haemophilus influenz ae type b vaccine, HbOC conjugate Rashel Maria MD Work Phone: [facility] Work Phone: 2003 haemophilus influenz ae type b vaccine, PRP-T conjugate Renetta Ponce APRN-BETO, DNP Work Phone: [facility] Work Phone: 2003 pneumococcal conjuga te vaccine, 13 valent Renetta Ponce APRN-BETO, DNP Work Phone: [facility] Work Phone: 2003 pneumococcal conjuga te vaccine, 7 valent Rashel Maria MD Work Phone: [facility] Work Phone: 2003 DTaP-hepatitis B and poliovirus vaccine Rashel Maria MD Work Phone: [facility] Work Phone: 2003 haemophilus influenz ae type b vaccine, HbOC conjugate Rashel Maria MD Work Phone: [facility] Work Phone: 2003 haemophilus influenz ae type b vaccine, PRP-T conjugate Renetta SHARMA, DNP Work Phone: [facility] Work Phone: 2003 pneumococcal conjuga te vaccine, 7 valent Rashel Maria MD Work Phone: [facility] Work Phone: 2003 hepatitis B vaccine, pediatric or pediatric/adolescent dosage Rashel Maria MD Work Phone: [facility] Work Phone: Payers Date Payer Category Payer Private Health Insurance [id number] 2020 Unknown [employer] PPO OOS [id number] 2020-Present [phone] [address] [place] [address] PPO [id number] 2020 Unknown [id number] 2020 Unknown [id number] 2003 Unknown [id number] 2003 Unknown [id number] 2003 Unknown [id number] 2003 Unknown [id number] Self-pay Social History Date Type Detail Facility Start: 05-27-2018 End: 03-04-2023 Tobacco smoking status NHIS Never smoked tobacco [facility] Start: 05-27-2018 End: 03-04-2023 Tobacco use and exposure Smokeless tobacco non-user [facility] Start: 01-13-2021 End: 06-19-2022 Alcohol intake Current non-drinker of alcohol (finding) [facility] Start: 2003 Sex Assigned At Not on file [facility] Start: 11-02-2021 End: 03-10-2023 Exposure to SARS-CoV-2 (event) Not sure [facility] History of tobacco use Passive smoker [facility] Tobacco smoking consumption unknown [facility] Start: 03-04-2023 Gender identity Not on file [facility] Work Phone: Start: 03-04-2023 Alcohol intake Lifetime non-d chino (finding) [facility] Work Phone: Start: 03-04-2023 History of Social function [facility] Work Phone: Clinical Notes 09-03-2014 to 03-04-2023 Renetta Ponce, SHEARING MACHINE OPERATOR-CABLE INSTALLER REPAIRER, DNP - 03/04/2023 2:15 PM VIDAVicchad Kelly MD - 06/19/2022 8:45 AM ESTTelephone Encounter - Katlyn Bruner RN - 06/17/2022 11:01 AM EST Note Date & Type Note Facility 03-04-2023 History of Presen t illness Narrative [facility] VISIT CHIEF COMPLAINT Establish [...] of her chest. 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 ABO: No results for input(s): ABO in the last 85210 hours. HEME/ENDO:No results for input(s): FERRITIN , IRONSAT , TSH , HGBA1C in the last 15957 hours. CARDIAC: No results for input(s): LDH , CKMB , TROPHS , BNP in the last 64036 hours. No lab exists for component: CK , CKMBP No results for input(s): CHOL , LDLF , HDL , TRIG in the last 32082 hours. MICRO: No results for input(s): ESR , CRP , PROCAL in the last 14138 hours. No results found for the last [...] the patient's care. Renetta Ponce DNP, TANIA, FLIGHT KITCHEN MANAGER-C Division of Cardiovascular Medicine [facility] documented in this encounter [facility] Work Phone: 06-19-2022 Note HNO ID: [id number] Author: Braulio Kelly MD Service: ? Author Type: Physician Type: Progress Notes Filed: 06/19/2022 8:58 AM Note Text: This note was created using Sumerian. Subjective Eri Veras is a 17 year old female here with her grandmother. She was seen in [place] [facility] 06/17/22 for syncope. Labs, including cardiac work up was negative. She was also in [facility] 06/03/22. Work up was negative other than positive for cannabinoids. She was in [place] ER 10/2021 for the same. No triggers [...] CONSULT TO SYNCOPE CLINIC Braulio Kelly MD [facility] 06-19-2022 History of Presen t illness Narrative This note was created using Sumerian. Subjective Eri Veras is a 17 year old female here with her grandmother. She was seen in [place] [facility] 06/17/22 for syncope. Labs, including cardiac work up was negative. She was also in [facility] 06/03/22. Work up was negative other than positive for cannabinoids. She was in [place] ER 10/2021 for the same. No triggers [...] Braulio Kelly MD documented in this encounter [facility] 06-17-2022 Miscellaneous Notes Returned call to [...] at the ER. documented in this encounter [facility] 06-16-2022 Miscellaneous Notes Triage Protocol Recommended: Evaluation at [facility]. To ER for severe symptoms. Reason [...] : - Protocols used: Abdominal Pain - [id number] documented in this encounter [facility] 01-26-2022 Note HNO ID: [id number] Author: Jocelyn Brunner PA-C Service: ? Author Type: Physician Manager [employer]otive Type: Progress Notes Filed: 01/26/2022 12:54 PM Note Text: This note was created using Guanririter. Subjective Eri Veras is a 16 year [...] (POC) - URINE CULTURE Jocelyn Brunner PA-C [facility] 10-04-2022 History of Presen t illness Narrative This note was created using Grafighterster. Subjective Eri Veras is a 16 year [...] Jocelyn Brunner PA-C documented in this encounter [facility] 11-12-2021 Note HNO ID: [id number] Author: Rashel Maria MD Service: ? Author Type: Physician Type: Progress Notes Filed: 11/12/2021 10:43 AM Note Text: Express Care Triage Note: Patient presents to the [facility] with complaint of she passed out at [place] yesterday. She thinks she hit her head and has a headache today. Normal speech and ambulation. Accompanied by her mother. Referred to primary care for evaluation of syncope. Proceed to the ER with worsening headache or other worrisome symptoms. [facility] 11-12-2021 History of Presen t illness Narrative Express Care Triage Note: Patient presents to the [facility] with complaint of she passed out at [employer] yesterday. She thinks she hit her head and has a headache today. Normal speech and ambulation. Accompanied by her mother. Referred to primary care for evaluation of syncope. Proceed to the ER with worsening headache or other worrisome symptoms. documented in this encounter [facility] documented as of this encounter (statuses as of 06/19/2022) [facility] History of Past illness Narrative* Problem Noted Date Resolved Date Syncope 09/03/2014 10/10/2018 Vasovagal syncope 09/03/2014 10/10/2018 Short stature 06/27/2007 05/25/2013 documented as of this encounter (statuses as of 11/12/2021) [address]12-2015 History of Past illness Narrative* Problem Noted Date Resolved Date Syncope 09/03/2014 10/10/2018 Vasovagal syncope 09/03/2014 10/10/2018 Short stature 06/27/2007 05/25/2013 documented as of this encounter (statuses as of 01/26/2022) [facility] History of Past illness Narrative* Problem Noted Date Resolved Date Syncope 09/03/2014 10/10/2018 Vasovagal syncope 09/03/2014 10/10/2018 Short stature 06/27/2007 05/25/2013 documented as of this encounter (statuses as of 06/16/2022) [address] History of Past illness Narrative* Problem Noted Date Resolved Date Syncope 09/03/2014 10/10/2018 Vasovagal syncope 09/03/2014 10/10/2018 Short stature 06/27/2007 05/25/2013 documented as of this encounter (statuses as of 06/17/2022) [facility] note* Diagnosis Syncope, unspecified syncope type- Primary Headache, unspecified headache type documented in this encounter [facility] note* Diagnosis Burning with urination- Primary Dysuria documented in this encounter [facility] note* Diagnosis Syncope and collapse- Primary documented in this encounter [facility] note* Diagnosis Palpitations- Primary Panic attack Panic disorder without agoraphobia documented in this encounter [facility] Work Phone: Evaluation note* Diagnosis Palpitations documented in this encounter [facility] Work Phone: Summary Purpose Family History No [...] HIGH MDM 60-74 MINUTES Braulio Kelly MD [address] [facility] [address] Referral ID Status Reason Start Date Expiration Date Visits Requested Visits Authorized [id number] Authorized PCP Requested Referral 06/19/2022 06/19/2023 1 1 Additional Source Comments INFORMATION SOURCE (unrecogn ized section and content) DATE CREATED AUTHOR AUTHOR'S ORGANIZ ATION 01/25/2020 [facility] DATE CREATED AUTHOR AUTHOR'S ORGANIZ ATION 06/04/2022 [facility] DATE CREATED AUTHOR AUTHOR'S ORGANIZ ATION 06/10/2022 [facility] DATE CREATED AUTHOR AUTHOR'S ORGANIZ ATION 06/20/2022 [facility] DATE CREATED AUTHOR AUTHOR'S ORGANIZ ATION 03/06/2023 [facility] DATE CREATED AUTHOR AUTHOR'S ORGANIZ ATION 04/05/2023 [facility] DATE CREATED AUTHOR AUTHOR'S ORGANIZ ATION 06/06/2023 [facility] Source Comments (unrecognize d section and content) In the event this informatio n is protected by the Federal Confidentiality of Alcohol and Drug Abuse Patient Records regulations: The Federal rules restrict any use of the information to criminally investigate or prosecute any alcohol or drug abuse patient.[facility] the event this information is protected by the Federal Confidentiality of Alcohol and Drug Abuse Patient Records regulations: The Federal rules restrict any use of the information to criminally investigate or prosecute any alcohol or drug abuse patient.[facility] the event this information is protected by the Federal Confidentiality of Alcohol and Drug Abuse Patient Records regulations: The Federal rules restrict any use of the information to criminally investigate or prosecute any alcohol or drug abuse patient.[facility] the event this information is protected by the Federal Confidentiality of Alcohol and Drug Abuse Patient Records regulations: The Federal rules restrict any use of the information to criminally investigate or prosecute any alcohol or drug abuse patient.[facility] the event this information is protected by the Federal Confidentiality of Alcohol and Drug Abuse Patient Records regulations: The Federal rules restrict any use of the information to criminally investigate or prosecute any alcohol or drug abuse patient.[facility] Care Teams (unrecognized sec tion and content) Hydrate Control Tender Relationship Specialty Start Date End Date Rory Aguillon III, MD NO FORWARDING ADDRESS PCP - General 03 Reason for Visit (unrecogniz ed section and content) Reason Comments Back Pain Abdominal Pain Reason Comments Called Back Reason Comments ED Follow-up ER follow up [facility] 05/27. No PCP. <item> Privacy Markings (unrecogniz [...] BE BASED ON THE PRIMARY CLINICAL RECORDS. [employer] [facility]. provides no warranty or guarantee of the accuracy or completeness of information in this document.
== END 2023-06-22 13:46 | disposition home or self-care (01) ==
LOC: MEDOUTP 13:45
PROVIDERS: Referring Provider Obstetrics & Gynecology; Visit Provider Obstetrics & Gynecology
DX: E86.0 Dehydration (principal)
CPT/HCPCS: 96365; 96375; A4216; J2405

== ENCOUNTER 2023-06-28 15:24 | Emergency (ER) | payer OTHER, MEDICAID, SELFPAY ==
[2023-06-28 15:25] VITALS: BP 103/85; PULSE 101; RESP 18; TEMP 36.6; O2SAT 100; BMI 16.1
[2023-06-28 16:11] VITALS: BP 103/74; PULSE 81; RESP 16; TEMP 36.7; O2SAT 95
--- NOTE | 2023-06-28 16:36 | EDS_ITS ---
HPI History of Present Illness Chief Complaint: Nausea/Vomiting Informant: patient and parent Narrative Narrative: 18-year-old female presenting to the emergency room with chief complaint of hyperemesis in . The patient is currently following with [facility]. She is currently taking Zofran at home. She states that she is about 15 weeks , G1, P0. She states that prepregnancy weight was about 115 120 pounds. She reports that she is down to about 94 pounds. She was seen in the office today was referred to the emergency room. Dr. Meier did call the emergency department requesting electrolyte check, thiamine administrat ion. I did review the call-in sheet. Patient currently denying any fevers. She states that overall her mental health feels good but she does worry about her weight loss and her vomiting. She notes constipation over the past 3 days. 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 current occupational exposures/hazards: No pets and animals: Yes pets and animals: dog(s) history of recent travel: Yes ([place]) out of state: Yes out of country: No sexually active: Yes Smoking Status: Never smoker alcohol intake: never substance use type: does not use well-balanced diet: rarely or never caffeine: No eating out: rarely or never during the past year weight has: remained stable what type of physical activity do you participate in: none manuel/mosque: None seatbelt use: always do you feel safe at home: Yes additional social history: BF Myra [facility] ROS ED Constitutional Constitutional ED: Reports weight loss; Denies chills or fever(s) Eyes Eyes: Denies change in vision or diplopia ENT ENT ED: Denies ear pain, rhinorrhea or sore throat Cardiovascular Cardiovascular: Denies chest pain, orthopnea, palpitations or racing heartbeat Respiratory/Chest Respiratory/Chest: Denies cough, dyspnea or orthopnea Gastrointestinal Gastrointestinal: Reports constipation, nausea and vomiting; Denies abdominal pain or diarrhea Genitourinary Genitourinary ED: Denies dysuria, hematuria or urinary frequency Musculoskeletal Musculoskeletal: Denies arthralgias or myalgias Integumentary Denies abscess or rash Neurologic Neurologic: Denies headache(s) or weakness Psychiatric Psychiatric: Denies anxiety, depression, suicidal ideation or suicidal thoughts Endocrine Endocrinology: Denies polydipsia, polyphagia or polyuria Allergic/Immunologic Allergic/Immunologic ED: Denies mouth swelling, tongue swelling or urticaria EXAM Physical Exam Const Vital Signs: 06/28/23 15:25 06/28/23 16:11 06/28/23 17:43 Temperature 97.8 F 98.1 F 98.6 F Temperature Source Temporal Temporal Oral Pulse Rate 101 H 81 66 Respiratory Rate 18 16 16 Blood Pressure 103/85 H 103/74 91/59 L Blood Pressure Mean 91 83 69 Pulse Ox 100 95 100 Oxygen Delivery Method Room Air Room Air Room Air Positive well nourished and well developed Constitutional Narrative: Patient appears very thin. General Appearance ED: well developed HEENT Reports normocephalic, head/scalp atraumatic and moist mucous membranes Eyes PERRL and EOMs intact bilaterally Neck no lymphadenopathy, supple and no JVD Resp normal respiratory effort and clear to auscultation bilaterally Cardio regular rate, regular rhythm and no murmurs GI normal to inspection, nondistended, normoactive bowel sounds and non-tender Palpation: soft Back/Spine no CVA tenderness and normal ROM Extremity normal to inspection General Extremety ED: Negative for edema General Extremity: Negative for edema Neuro oriented x3 and CN's II-XII intact bilaterally Sensorium / Orientation: alert Motor Exam: strength 5/5 throughout Psych mental status grossly normal Psych Narrative: Patient smiles and laughs. She makes appropriate eye contact. Mood & Affect: Negative for depressed or tearful Skin no rashes or lesions noted and no wounds MDM MDM MDM Narrative Medical decision making narrative: Patient received 2 L of normal saline in addition to Compazine and Benadryl. I also gave her dose of Zofran as well as methylprednisolone. This was the plan as discussed with Dr. Meier from obstetrics. Bedside ultrasound demonstrates a heart rate of 156. Good movement. Electrolytes appear within normal limits. CO2 of 25 anion gap of 7. Patient's protein is 7.6 with an albumin of 3.6. Normal liver enzymes. Urinalysis with ketones. There appears to be a contaminated specimen but no overt infection and she is currently on an antibiotic that she does not know the name of. In keeping with the plan discussed with Dr. Meier I will write for some Compazine which she can take with Benadryl at home. She will be following up in the office as an outpatient. All the results and the plan was discussed with the patient and her parents. History & Record Review Discussion w/independent historian: Patient and Family Lab Data Attestation: I reviewed the patient's lab results. Labs: Laboratory Results - last 24 hr 06/28/23 06/28/23 16:43 18:23 WBC 8.3 RBC 4.67 Hgb 13.7 Hct 40.2 MCV 86.1 MCH 29.3 MCHC 34.1 RDW Std Deviation 37.8 RDW Coeff of Billy 12.1 Plt Count 267 MPV 9.5 Immature Gran % (Auto) 0.200 Neut % (Auto) 74.6 H Lymph % (Auto) 17.3 L [place] % (Auto) 6.4 Eos % (Auto) 1.0 Baso % (Auto) 0.5 Absolute Neuts (auto) 6.2 Absolute Lymphs (auto) 1.44 Nucleated RBC % 0 Sodium 134 L Potassium 3.7 Chloride 102 Carbon Dioxide 25.0 Anion Gap 7 BUN 9 Creatinine 0.56 Estim Creat Clear Calc 108.09 Est GFR (MDRD) Af Amer 176 Est GFR (MDRD) Non-Af 146 BUN/Creatinine Ratio 16.0 Glucose 83 Calcium 9.8 Total Bilirubin 0.70 Direct Bilirubin 0.19 AST 11 L ALT 11 L Alkaline Phosphatase 46 Total Protein 7.6 Albumin 3.6 Globulin 4.0 Urine Color Yellow Urine Clarity Clear Urine pH 6.0 Ur Specific [place] 1.025 Urine Protein Negative Urine Glucose (UA) Normal Urine Ketones 150 A* Urine Occult Blood Negative Urine Nitrite Negative Urine Bilirubin Negative Urine Urobilinogen 1 H Ur Leukocyte Esterase 25 H Urine RBC 0 SEEN Urine WBC 5-10 SEEN Ur Squamous Epith Cells 5-10 SEEN Urine Bacteria RARE Urine Mucus 1+ Discharge Plan Triage Chief Complaint: Nausea/Vomiting ED Provider: Michael Schroeder Dx/Rx/DC Orders Clinical Impression: Abnormal weight loss, , Nausea & vomiting Instructions: ED Hyperemesis Gravidarum Prescriptions: New prochlorperazine maleate [Compazine] 10 mg tablet 10 mg PO Q8H PRN (Reason: nausea and vomiting) Qty: 20 0RF No Action ondansetron 4 mg tablet,disintegrating 4 mg PO Q6H Qty: 30 3RF Primary Care Provider: Care Physician,No Primary Referrals: Shruti Meier MD [Med Staff - Active Staff] - As soon as possible Care Physician,No Primary [Primary Care Provider] - Activity Restrictions/Additional Instructions: If you take the Compazine (prochlorperazine) for nausea please take a Benadryl 25 mg tablet with it. Please follow-up with obstetrics later this week as scheduled. Disposition Disposition: Home, Self Care
[2023-06-28 16:48] LABS: Absolute Lymphocyte Count 1.44 X10^3/uL (0.83-4.51); Absolute Neutrophil Count 6.2 X10^3/uL (2.0-7.7); Basophil# 0.04 X10^3/uL; Basophil% 0.5 % (0-1); Eosinophil# 0.08 X10^3/uL; Hematocrit 40.2 % (37-47); Hemoglobin 13.7 g/dL (12.0-15.0); Lymphocyte # 1.44 X10^3/ul (0.83-4.51); Lymphocyte % 17.3 % (19-41); Mean Corp Hgb Conc 34.1 g/dL (32-36); Mean Corpuscular Hgb 29.3 pg (27.0-32.0); Mean Corpuscular Volume 86.1 fL (81-99); Mean Platelet Vol. 9.5 fl (6.2-12.0); Monocyte# 0.53 X10^3/uL; Monocyte% 6.4 % (0-10); NRBC Flagged by Analyzer 0 % (0-5); Neutrophil # 6.21 X10^3/uL (2.7-7.7); Neutrophil % 74.6 % (47-70); Platelet Count 267 K/mm3 (150-450); RBC Distribution Width CV 12.1 % (11.6-14.6); RBC Distribution Width SD 37.8 fl (35.1-43.9); Red Blood Count 4.67 M/mm3 (4.2-5.4); White Blood Count 8.3 K/mm3 (4.4-11.0)
[2023-06-28] MEDS: proCHLORPERazine 10 MG/2 ML Vial IV (16:48)
[2023-06-28] MEDS: DiphenhydrAMINE 50 MG/ML Syringe 25 MG IV (16:48)
[2023-06-28] MEDS: MethylPREDNISolone 125 MG/2 ML Vial IV (16:48)
[2023-06-28] MEDS: Ondansetron 4 MG/2 ML Vial IV (16:48)
[2023-06-28 16:49] LABS: POSITIVE COUNT NO; POSITIVE DIFFERENTIAL NO; POSITIVE MORPHOLOGY NO
[2023-06-28] MEDS: 0.9% Normal Saline (1000mL) 1,000 ML 1000 ML IV ×2 (16:50→17:40)
[2023-06-28 17:05] LABS: AST(SGOT) 11 U/L (15-37); Alanine Aminotransfer ALT/SGPT 11 U/L (13-56); Albumin, Serum 3.6 g/dL (3.2-5.0); Alkaline Phosphatase 46 U/L (45-117); Anion Gap 7 (5-15); BUN 9 mg/dL (7-18); Bilirubin, Direct 0.19 mg/dL (0.00-0.30); Calcium,Total 9.8 mg/dL (8.5-10.1); Chloride 102 mmol/L (98-107); Creatinine, Serum 0.56 mg/dL (0.55-1.02); EST Glomerular Filtration Rate 146 mL/min (>60); Est Glom Filt Rate - Afr Amer 176 mL/min (>60); Estimated Creatinine Clearance 108.09 ml/min; Glucose 83 mg/dL (74-106); Potassium 3.7 mmol/L (3.5-5.1); Protein, Total 7.6 g/dL (6.4-8.2); Sodium Level 134 mmol/L (136-145)
[2023-06-28] MEDS: Thiamine Hydrochloride 100 MG in 0.9% Normal Saline (50mL Bag) 50 ML 200 MG IV (17:40)
[2023-06-28 17:43] VITALS: BP 91/59; PULSE 66; RESP 16; TEMP 37; O2SAT 100
[2023-06-28 18:27] LABS: Red Blood Cells-Urine 0 SEEN /hpf (0-5)
[2023-06-28 18:28] LABS: Color, Urine Yellow (Yellow); Glucose, Dipstick Normal (Normal); Leukocyte Esterase-Dipstick 25 /ul (Negative); Nitrite-Dipstick Negative (Negative); Occult Blood-Urine Negative /ul (Negative); Protein-Dipstick Negative (Negative); Specific Gravity, Urine 1.025 (1.002-1.030); Urine Bilirubin Dipstick Negative (Negative); Urine Clarity Clear (Clear); Urine Urobilinogen 1 mg/dl (Normal)
[2023-06-28 18:30] LABS: Ketone-Dipstick 150 mg/dl (Negative)
[2023-06-28 18:41] LABS: White Blood Cells 5-10 SEEN /hpf (0-5)
[2023-06-28 18:42] LABS: Bacteria RARE /hpf (None Seen); Mucous, Urine 1+ /hpf (<or=2+); Squamous Epithelial Cells - UA 5-10 SEEN /hpf (5-10)
[2023-06-28 19:01] VITALS: BP 96/62; PULSE 83; RESP 16; TEMP 36.7; O2SAT 96
== END 2023-06-28 19:06 | disposition home or self-care (01) ==
PROVIDERS: Emergency Provider Emergency Medicine; Visit Provider Emergency Medicine
DX: O99.891 Other specified diseases and conditions complicating pregnancy (principal); R63.4 Abnormal weight loss; R11.2 Nausea with vomiting, unspecified; Z3A.15 15 weeks gestation of pregnancy
CPT/HCPCS: 80048; 80076; 81001; 85025; 96361; 96365; 96375; 99283; A4216; J2405; J3490

== ENCOUNTER → 2023-08-08 | Outpatient (CLI) | payer OTHER, SELFPAY | END | disposition home or self-care (01) | LOC: LABSPEC 10:40 | PROVIDERS: Referring Provider Nurse Practitioner Women's Health; Visit Provider Nurse Practitioner Women's Health | DX: O23.40 Unspecified infection of urinary tract in pregnancy, unspecified trimester (principal); Z3A.00 Weeks of gestation of pregnancy not specified | CPT/HCPCS: 87086 ==

== ENCOUNTER → 2023-09-08 | Outpatient (CLI) | payer OTHER, SELFPAY ==
[2023-09-08 08:42] LABS: Absolute Lymphocyte Count 2.63 X10^3/uL (0.83-4.51); Absolute Neutrophil Count 11.5 X10^3/uL (2.0-7.7); Basophil# 0.11 X10^3/uL; Basophil% 0.7 % (0-1); Eosinophil# 0.22 X10^3/uL; Eosinophils% 1.4 % (0-5); Hemoglobin 10.7 g/dL (12.0-15.0); Lymphocyte # 2.63 X10^3/ul (0.83-4.51); Lymphocyte % 16.3 % (19-41); Mean Corp Hgb Conc 32.4 g/dL (32-36); Mean Corpuscular Hgb 29.4 pg (27.0-32.0); Mean Corpuscular Volume 90.7 fL (81-99); Mean Platelet Vol. 9.6 fl (6.2-12.0); Monocyte# 1.26 X10^3/uL; Monocyte% 7.8 % (0-10); NRBC Flagged by Analyzer 0 % (0-5); Neutrophil # 11.54 X10^3/uL (2.7-7.7); Neutrophil % 71.5 % (47-70); Platelet Count 290 K/mm3 (150-450); RBC Distribution Width CV 11.7 % (11.6-14.6); RBC Distribution Width SD 38.8 fl (35.1-43.9); Red Blood Count 3.64 M/mm3 (4.2-5.4); White Blood Count 16.1 K/mm3 (4.4-11.0)
[2023-09-08 08:56] LABS: Glucose Challenge Gest 1H 50g 103 mg/dL (70-140)
[2023-09-08 19:42] LABS: HIV - WCH Non-Reactive (Nonreactive); Syphilis Antibodies Non-reactive
== END | disposition home or self-care (01) ==
LOC: PAVLAB 08:18
PROVIDERS: Obstetrics & Gynecology; Referring Provider Nurse Practitioner Women's Health; Visit Provider Nurse Practitioner Women's Health
DX: Z13.1 Encounter for screening for diabetes mellitus (principal)
CPT/HCPCS: 36415; 82950; 85025; 86703; 86780

== ENCOUNTER → 2023-09-28 | Outpatient (CLI) | payer OTHER, SELFPAY ==
[2023-09-28 11:01] LABS: Absolute Lymphocyte Count 2.45 X10^3/uL (0.83-4.51); Absolute Neutrophil Count 11.8 X10^3/uL (2.0-7.7); Basophil# 0.09 X10^3/uL; Basophil% 0.6 % (0-1); Eosinophil# 0.23 X10^3/uL; Eosinophils% 1.4 % (0-5); Hematocrit 34.8 % (37-47); Hemoglobin 11.5 g/dL (12.0-15.0); Lymphocyte # 2.45 X10^3/ul (0.83-4.51); Mean Corpuscular Hgb 29.5 pg (27.0-32.0); Mean Corpuscular Volume 89.2 fL (81-99); Mean Platelet Vol. 9.6 fl (6.2-12.0); Monocyte# 1.22 X10^3/uL; Monocyte% 7.5 % (0-10); NRBC Flagged by Analyzer 0 % (0-5); Neutrophil # 11.79 X10^3/uL (2.7-7.7); Neutrophil % 72.3 % (47-70); Platelet Count 325 K/mm3 (150-450); RBC Distribution Width CV 11.8 % (11.6-14.6); RBC Distribution Width SD 37.5 fl (35.1-43.9); White Blood Count 16.3 K/mm3 (4.4-11.0)
== END | disposition home or self-care (01) ==
LOC: PAVLAB 10:35
PROVIDERS: Visit Provider Advanced Practice Midwife
DX: O99.013 Anemia complicating pregnancy, third trimester (principal); Z3A.00 Weeks of gestation of pregnancy not specified
CPT/HCPCS: 36415; 85025

== ENCOUNTER 2023-10-18 02:00 | Outpatient (CLI) | payer OTHER, SELFPAY ==
[2023-10-18 10:42] LABS: Bacteria 1+ /hpf (None Seen); Color, Urine Yellow (Yellow); Glucose, Dipstick NEGATIVE (Normal); Ketone-Dipstick Negative (Negative); Leukocyte Esterase-Dipstick 25 /ul (Negative); Mucous, Urine 0 SEEN /hpf (<or=2+); Nitrite-Dipstick Negative (Negative); Occult Blood-Urine Negative /ul (Negative); Protein-Dipstick Negative (Negative); Red Blood Cells-Urine 0 SEEN /hpf (0-5); Specific Gravity, Urine 1.015 (1.002-1.030); Squamous Epithelial Cells - UA 10-25 SEEN /hpf (5-10); Urine Bilirubin Dipstick Negative (Negative); Urine Clarity Clear (Clear); Urine Urobilinogen Normal (Normal); White Blood Cells 5-10 SEEN /hpf (0-5)
[2023-10-18 10:43] LABS: Basophil% 0.5 % (0-1); Eosinophil# 0.18 X10^3/uL; Eosinophils% 1.4 % (0-5); Hematocrit 32.8 % (37-47); Hemoglobin 10.7 g/dL (12.0-15.0); Lymphocyte # 2.07 X10^3/ul (0.83-4.51); Lymphocyte % 15.9 % (19-41); Mean Corp Hgb Conc 32.6 g/dL (32-36); Mean Corpuscular Hgb 28.5 pg (27.0-32.0); Mean Corpuscular Volume 87.2 fL (81-99); Monocyte# 1.06 X10^3/uL; Monocyte% 8.1 % (0-10); Neutrophil # 9.53 X10^3/uL (2.7-7.7); Platelet Count 310 K/mm3 (150-450); RBC Distribution Width CV 11.9 % (11.6-14.6); RBC Distribution Width SD 38.1 fl (35.1-43.9); Red Blood Count 3.76 M/mm3 (4.2-5.4); White Blood Count 13.1 K/mm3 (4.4-11.0)
[2023-10-18 10:44] LABS: Basophil# 0.07 X10^3/uL
--- NOTE | 2023-10-19 23:10 | OB.TRI.PN_ITS ---
Progress Notes Date of Service: 10/18/23 Progress Note: Patient presents for triage evaluation secondary to cramping, nausea and vomiting. UTI. FHT: 140 Moderate variability reactive no decelerations category I tracing [place]: irregular Contractions Assessment and plan: UTI in given keflex, IVFs and antiemetics. Reactive NST, reassuring maternal and status patient discharged to home to follow-up as scheduled. See problem list details for additional plan information. Laboratory Studies: Laboratory Tests 10/18/23 10/18/23 Range/Units 03:25 02:30 WBC 13.1 H (4.4-11.0) K/mm3 RBC 3.76 L (4.2-5.4) M/mm3 Hgb 10.7 L (12.0-15.0) g/dL Hct 32.8 L (37-47) % MCV 87.2 (81-99) fL MCH 28.5 (27.0-32.0) pg MCHC 32.6 (32-36) g/dL RDW Std Deviation 38.1 (35.1-43.9) fl RDW Coeff of Billy 11.9 (11.6-14.6) % Plt Count 310 (150-450) K/mm3 MPV 10.0 (6.2-12.0) fl Immature Gran % (Auto) 1.100 H (0.0-0.9) % Neut % (Auto) 73.0 H (47-70) % Lymph % (Auto) 15.9 L (19-41) % [place] % (Auto) 8.1 (0-10) % Eos % (Auto) 1.4 (0-5) % Baso % (Auto) 0.5 (0-1) % Absolute Neuts (auto) Not Reportable Urine Color Yellow (Yellow) Urine Clarity Clear (Clear) Urine pH 8.0 (5.0 - 8.0) Ur Specific [place] 1.015 (1.002-1.030) Urine Protein Negative (Negative) mg/dl Urine Glucose (UA) NEGATIVE (Normal) mg/dl Urine Ketones Negative (Negative) mg/dl Urine Occult Blood Negative (Negative) /ul Urine Nitrite Negative (Negative) Urine Bilirubin Negative (Negative) mg/dL Urine Urobilinogen Normal (Normal) mg/dl Ur Leukocyte Esterase 25 H (Negative) /ul Urine RBC 0 SEEN (0-5) /hpf Urine WBC 5-10 SEEN (0-5) /hpf Ur Squamous Epith Cells 10-25 SEEN (5-10) /hpf Urine Bacteria 1+ (None Seen) /hpf Urine Mucus 0 SEEN (<or=2+) /hpf Charges/Coding Procedures Urinary/Genital 52xxx-59xxx: 42968-82 non-stress test Interp
== END 2023-10-18 12:15 | disposition home or self-care (01) ==
LOC: WPOUT 10:36 → WP 10:36
PROVIDERS: Visit Provider Obstetrics & Gynecology
DX: O99.891 Other specified diseases and conditions complicating pregnancy (principal); O23.40 Unspecified infection of urinary tract in pregnancy, unspecified trimester; R25.2 Cramp and spasm; O21.9 Vomiting of pregnancy, unspecified; Z3A.00 Weeks of gestation of pregnancy not specified
CPT/HCPCS: 96374; 36415; 59025; 59050; 81001; 85025; 87086; 87088; 99221; J7120; G0378

== ENCOUNTER → 2023-11-09 | Outpatient (CLI) | payer OTHER, SELFPAY ==
--- NOTE | 2023-11-09 12:49 | US_ITS ---
STUDY: SECOND AND THIRD TRIMESTER OBSTETRICAL ULTRASOUND - LIMITED REASON FOR EXAM: Female, 18 years old size less than dates LMP: 03/11/2023 PRIOR ULTRASOUND: None. TECHNIQUE: Transabdominal TECHNICAL QUALITY: Adequate. FINDINGS: There is a single intrauterine fetus. The fetus is in a cephalic presentation. There is demonstrated cardiac activity with a heart rate of 1:30 bpm. There is a normal amniotic fluid volume. The largest amniotic fluid pocket measures 4.0 cm. The amniotic fluid index (CORBIN) is 13.4 cm. The placenta is fundal in location. There are Grade 1 placental changes. The cervix measures cm in length. BIOMETRY: BPD: 8.4 cm: 33 weeks, 4 days HC: 31.0 cm: 34 weeks, 5 days AC: 30.5 to: 34 weeks, 3 days FL: 6.9 cm: 35 weeks, 1 days Age by LMP: 34 weeks, 5 days. LYNNE by LMP: 12/16/2023. age by prior US: weeks, days. LYNNE by prior US: . age by current US: 34 weeks, 2 days. LYNNE by current US: 12/19/2023. Estimated weight: 2479 grams, +/- 372 grams, 44 percentile. Gender: US/OB Limited With Biometrics IMPRESSION: Living intrauterine of 34 weeks 2 days as described above. Electronically Signed: Jimbo Moreno MD at 15:53 EDT ,
== END | disposition home or self-care (01) ==
LOC: OPUS 12:49
PROVIDERS: Referring Provider Advanced Practice Midwife; Visit Provider Advanced Practice Midwife
DX: O26.843 Uterine size-date discrepancy, third trimester (principal); Z3A.00 Weeks of gestation of pregnancy not specified
CPT/HCPCS: 76816

== ENCOUNTER → 2023-11-24 | Outpatient (CLI) | payer OTHER, SELFPAY | END | disposition home or self-care (01) | LOC: LABSPEC 11:21 | PROVIDERS: Referring Provider Advanced Practice Midwife; Visit Provider Advanced Practice Midwife | DX: Z34.03 Encounter for supervision of normal first pregnancy, third trimester (principal) | CPT/HCPCS: 87081 ==

== ENCOUNTER 2023-12-07 14:54 | Outpatient (CLI) | payer OTHER, SELFPAY ==
[2023-12-07 15:13] VITALS: BP 113/61; PULSE 88; RESP 16; TEMP 36.6; O2SAT 98
[2023-12-07 15:41] VITALS: BMI 21.2
[2023-12-07 17:41] LABS: Color, Urine Yellow (Yellow); Glucose, Dipstick Normal (Normal); Leukocyte Esterase-Dipstick 100 /ul (Negative); Nitrite-Dipstick Negative (Negative); Occult Blood-Urine Negative /ul (Negative); Protein-Dipstick 30 mg/dl (Negative); Red Blood Cells-Urine 0 SEEN /hpf (0-5); Specific Gravity, Urine 1.015 (1.002-1.030); Urine Bilirubin Dipstick Negative (Negative); Urine Clarity Clear (Clear); Urine Urobilinogen 1 mg/dl (Normal)
[2023-12-07 18:02] LABS: Ketone-Dipstick 150 mg/dl (Negative)
[2023-12-07 18:12] LABS: Amorphous Sediment 2+; Bacteria 1+ /hpf (None Seen); Mucous, Urine 3+ /hpf (<or=2+); Squamous Epithelial Cells - UA > 100 SEEN /hpf (5-10); White Blood Cells 25-50 SEEN /hpf (0-5)
--- NOTE | 2023-12-07 18:36 | OB.TRI.HP_ITS ---
HPI - General General Date of Admission: 12/07/23 HPI Narrative ERI VERAS, is a 18 y/o @ 38 weeks 5 days who presents to L&D with lower back pain and some cramping. She was not found to have contractions and was 1 cm dilated. UA showed leukocytes, protein, and large ketones. Maternal Data Information LYNNE Calculator Estimated Delivery Date Method Current WG Current Estimate 12/16/23 Ultrasound #1 38w 5d Other Estimates 12/09/23 LMP (Certain) 39w 5d PFSH PFSH Medical History care in first trimester Home Medications ?Medication ?Instructions ?Recorded ?Last Taken ?Type ondansetron 4 mg disintegrating 4 mg PO Q6H #30 tabs 05/06/23 06/27/23 Rx tablet sertraline 50 mg tablet (Zoloft) 50 mg PO DAILY #60 tabs 10/12/23 Unknown Rx multivit-min no.71-iron fum 28 1 cap PO DAILY 11/24/23 12/06/23 History mg-folate no.1 1 mg-dha 300 mg capsule (PNV-Hoffman) cephalexin 500 mg capsule 500 mg PO BID #14 caps 12/07/23 Unknown Rx Allergy/AdvReac Type Severity Reaction Status Date / Time No Known Allergies Allergy Verified 12/07/23 15:43 Family History Sister Seizures Brother Autism Social History adopted: No household members: significant other current occupational status: employed 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 current occupational exposures/hazards: No pets and animals: Yes pets and animals: dog(s) history of recent travel: Yes ([place]) out of state: Yes out of country: No sexually active: Yes Smoking Status: Never smoker alcohol intake: never substance use type: does not use well-balanced diet: rarely or never caffeine: No eating out: rarely or never during the past year weight has: remained stable what type of physical activity do you participate in: none manuel/scientologist: None seatbelt use: always do you feel safe at home: Yes additional social history: BF [place] History 1 Elective abortions Hx Para 0 Spontaneous abortions Hx # Term Pregnancies Ectopic pregnancies Hx # Pregnancies Multiple births # of living children Visit Details Expected Delivery Route/Plan Labor Preferences- CB/BF classes: encouraged labor support person: Myra labor intervention preferences: [] pain management options preferred: epidural cut cord/dad catch: no : yes PP control planned: discussed discussed possible routes of delivery and associated risks: [] special requests: [] Plans Covid status: [] Flu vaccine: [] Tdap vaccine: declines Rhogam: na LARC form signed: yes Problem list reviewed and updated with the most current plan of care details and appropriate orders placed. Relevant counseling for the gestational age provided. Continue routine care and follow up unless otherwise noted in visit notes/problem list details OB Flowsheet Initial Weight: Not Recorded Date -?-?-?-?-?-?-?-?-?-?-?-?- EGA Weight BP Urine Prot -?-?-?-?-?-?-?-?-?-?-?-?- Glucose FHR FuHt Pres Dilation -?-?-?-?-?-?-?-?-?-?-?-?- Effaced St Visit Note 05/06/23 -?-?-?-?-?-?-?-?-?-?-?-?- 8w 0d 104 lb 8 oz 107/72 -?-?-?-?-?-?-?-?-?-?-?-?- 175 -?-?-?-?-?-?-?-?-?-?-?-?- kw- CRL not cons with dates. Cons with 8.0 week gestation. LYNNE adjusted. Wants to think about NIPT. 06/03/23 -?-?-?-?-?-?-?-?-?-?-?-?- w 0d 100 lb 4 oz 100/71 -?-?-?-?-?-?-?-?-?-?-?-?- 172 -?-?-?-?-?-?-?-?-?-?-?-?- kw-no vb/freya g. having constant N/V. IV hydration and zofran ordered x4 times. MFM US ordered. Accepts NIPT today and declines AFP. 06/28/23 -?-?-?-?-?-?-?-?-?-?-?-?- 15w 4d 94 lb 2 oz 94/62 Negat nannette -?-?-?-?-?-?-?-?-?-?-?-?- Negative 160 -?-?-?-?-?-?-?-?-?-?-?-?- MH-Not feeling w ell. Has Uti and unable to keep antibiotic or zofran down. Has now lost 10# in last [address] Meier and sent to ED 06/30/23 -?-?-?-?-?-?-?-?-?-?-?-?- 15w 6d 102 lb 94/59 Negative -?-?-?-?-?-?-?-?-?-?-?-?- Negative 160 -?-?-?-?-?-?-?-?-?-?-?-?- SM- tolerating p o feeling much better. didn't need oral steroid pack 07/13/23 -?-?-?-?-?-?-?-?-?-?-?-?- 17w 5d 103 lb 105/73 Negative -?-?-?-?-?-?-?-?-?-?-?-?- Negative 150 -?-?-?-?-?-?-?-?-?-?-?-?- JV- still nausea mario but ran out of promethazine. refill given. RTO in 4 weeks. has anatomy scan scheduled soon. 08/08/23 -?-?-?-?-?-?-?-?-?-?-?-?- 21w 3d 110 lb 6 oz 92/60 Nega tive -?-?-?-?-?-?-?-?-?-?-?-?- Negative 153 -?-?-?-?-?-?-?-?-?-?-?-?- MH-No VB. Good F M. Nausea/vomiting improved. Has off and on pain over sternum. Lungs clear, heart NSR. Reassured. See PCP if worsens, cough fever etc. 09/08/23 -?-?-?-?-?-?-?-?-?-?-?-?- 25w 6d 124 lb 101/67 Negative -?-?-?-?-?-?-?-?-?-?-?-?- Negative 150 26 -?-?-?-?-?-?-?-?-?-?-?-?- Sm- no vb lof go od fm no regular ctx 09/28/23 -?-?-?-?-?-?-?-?-?-?-?-?- 28w 5d 126 lb 2 oz 98/66 Nega tive -?-?-?-?-?-?-?-?-?-?-?-?- Negative 155 27 -?-?-?-?-?-?-?-?-?-?-?-?- MH-no VB, LOF. G ood FM. Some RL pain. Discussed. Will have rpt cbc today 10/12/23 -?-?-?-?-?-?-?-?-?-?-?-?- 30w 5d 129 lb 8 oz 119/75 Nega tive -?-?-?-?-?-?-?-?-?-?-?-?- Negative 130 29 -?-?-?-?-?-?-?-?-?-?-?-?- KW- no vb/lof/ct x. good fm. requesting medication for anxiety and some depression sx. 10/26/23 -?-?-?-?-?-?-?-?-?-?-?-?- 32w 5d 127 lb 2 oz 99/69 Nega tive -?-?-?-?-?-?-?-?-?-?-?-?- Negative 140 30 -?-?-?-?-?-?-?-?-?-?-?-?- SM- no vb lof go od fm no regular ctx, growth US ordered 11/07/23 -?-?-?-?-?-?-?-?-?-?-?-?- 34w 3d 128 lb 103/68 Negative -?-?-?-?-?--?-?-?-?-?-?-?- Negative 140 30 -?-?-?-?-?-?-?-?-?-?-?-?- KW- no vb/lof/ct x. good fm. unable to schedule US reports not able to get ahold of scheduling. KW- no vb/lof/ctx. good fm. unable to schedule US reports not able to get ahold of scheduling. order was not placed, ordered today. scheduled for 11/08 at 1300 11/17/23 -?-?-?-?-?-?-?-?-?-?-?-?- 35w 6d 126 lb 4 oz 100/64 Nega tive -?-?-?-?-?-?-?-?-?-?-?-?- Negative 156 33 -?-?-?-?-?-?-?-?-?-?-?-?- MH-No VB, LOF. G ood FM. Reviewed normal growth US. Discussed meds for heartburn 11/24/23 -?-?-?-?-?-?-?-?-?-?-?-?- 36w 6d 127 lb 4 oz 106/65 Nega tive -?-?-?-?-?-?-?-?-?-?-?-?- Negative 120 33 34 -?-?-?-?-?-?-?-?-?-?-?-?- KW- no vb/lof/ct x. good fm. GBS today KW- no vb/lof/ctx. good fm. GBS today. 12/01/23 -?-?-?-?-?-?-?-?-?-?-?-?- 37w 6d 127 lb 8 oz 117/78 Nega tive -?-?-?-?-?-?-?-?-?-?-?-?- Negative 135 35 -?-?-?-?-?-?-?-?-?-?-?-?- JV- patient decl diego exam today. ordering another growth scan for anytime after the 17th (one month from last) ROS Constitutional Constitutional: Reports systems reviewed and no addt'l complaints, except as documented Gastrointestinal Gastrointestinal: Denies bloating, constipation, cramping, diarrhea, nausea or vomiting Genitourinary Genitourinary: Reports other Details: Denies vaginal odor, vaginal bleeding, or vaginal discharge ; Denies difficulty urinating or flank pain Physical Exam HEENT normocephalic Resp normal respiratory effort and normal air movement no CVA tenderness Extremity normal to inspection General Extremity: edema bilateral (trace ) NST FHR Rate Baby A Baseline: 150 Variability:: Moderate Accelerations:: 15 x 15 Decelerations:: None NST Reactive:: Yes FHR Category:: Category I Assessment & Plan (1) Dehydration during : (2) Uterine size-date discrepancy, third trimester: COMMENT: growth US 44% EFW. Normal (3) Anemia affecting in third trimester: COMMENT: hasn't been taking PNV- instructed to start and recheck cbc in 4 weeks (4) UTI (urinary tract infection) during : QUALIFIERS: Trimester: second trimester Qualified Code(s): O23.42 - Unspecified infection of urinary tract in , second trimester COMMENT: ASHISH in 4 weeks:08/07:negative (5) Family history of autism: COMMENT: Brother (6) Anxiety: COMMENT: stable (7) Supervision of normal first teen : QUALIFIERS: Trimester: third trimester Qualified Code(s): Z34.03 - Encounter for supervision of normal first , third trimester COMMENT: [id number], LYNNE 12/09/23 girl Princess Dumont LOBO Renteria (8) : QUALIFIERS: Weeks of gestation: 37 weeks Qualified Code(s): Z3A.37 - 37 weeks gestation of COMMENT: GBS neg, nl anatomy, NIPT low risk,declines carrier testing and AFP PLAN: Plan suspect dehydration and possible UTI. starting keflex and recommending PO hydration as patient declines IV hydration keep scheduled appt tomorrow. Charges/Coding Multi Select Codes Visit Charges Office Visit/Consults: 06981 OV L3 Est 20min Urinary/Genital Urinary/Genital CPT Codes: 13290-18 non-stress test Interp
[2023-12-07] MEDS: Cephalexin 500 MG Capsule PO (18:45)
== END 2023-12-07 18:50 | disposition home or self-care (01) ==
LOC: WPOUT 15:00 → WP 15:40
PROVIDERS: Referring Provider Obstetrics & Gynecology; Visit Provider Obstetrics & Gynecology
DX: O99.891 Other specified diseases and conditions complicating pregnancy (principal); M54.50 Low back pain, unspecified; R25.2 Cramp and spasm; Z3A.37 37 weeks gestation of pregnancy; O99.283 Endocrine, nutritional and metabolic diseases complicating pregnancy, third trimester; E86.0 Dehydration; O26.843 Uterine size-date discrepancy, third trimester; O99.013 Anemia complicating pregnancy, third trimester
CPT/HCPCS: 59050; 81001; 87086; 87088; 99221; G0378

== ENCOUNTER 2023-12-08 13:15 | Inpatient (IN) | payer OTHER, MEDICAID, SELFPAY ==
--- NOTE | 2023-12-08 10:01 | US_ITS ---
STUDY: SECOND AND THIRD TRIMESTER OBSTETRICAL ULTRASOUND - LIMITED REASON FOR EXAM: Female, 18 years old R/O oligohydramnios and IUGR. LMP: 03/11/2023 PRIOR ULTRASOUND: Prior study dated: 11/09/2023 TECHNIQUE: Transabdominal TECHNICAL QUALITY: Adequate. FINDINGS: There is a single intrauterine fetus. The fetus is in a cephalic presentation. There is demonstrated cardiac activity with a heart rate of 135 bpm. There is a normal amniotic fluid volume. The largest amniotic fluid pocket measures 4.3 cm. The amniotic fluid index (CORBIN) is 11 cm. The placenta is posterior and fundal in location and is not low lying. There are Grade 2 placental changes. The cervix is not visualized. BIOMETRY: BPD: 9.1 cm: 36 weeks, 5 days HC: 32.4 cm: 36 weeks, 5 days AC: 31 cm: 35 weeks, 0 days FL: 7.3 cm: 37 weeks, 2 days Age by LMP: 38 weeks, 6 days. LYNNE by LMP: 12/16/2023. age by prior US: 38 weeks, 3 days. LYNNE by prior US: 12/19/2023. age by current US: 36 weeks, 2 days. LYNNE by current US: 01/03/2024. Estimated weight: 2835 grams, +/- 425 grams, 10.3 percentile. US/OB Limited With Biometrics IMPRESSION: Single live intrauterine fetus in cephalic presentation with an estimated gestational age of 36 weeks and 2 days. LYNNE is 01/03/2024. Electronically Signed: Lorenzo Salinas MD at 11:44 EDT ,
[2023-12-08 10:08] VITALS: BP 126/86; PULSE 73; RESP 16; TEMP 36.8; O2SAT 100
[2023-12-08 10:10] VITALS: BMI 21.6
[2023-12-08] MEDS: Cephalexin 500 MG Capsule PO ×2 (11:16→22:47)
--- NOTE | 2023-12-08 17:18 | HP.PCM.OB_ITS ---
HPI - General General Date of Admission: 12/08/23 HPI Narrative ERI VERAS, is a 18 F who presents for IOL secondary to IUGR with 10% overall and less than the first percentile AC. She denies any vaginal bleeding abdominal pain or discharge. The office today measuring 33 cm, 6 weeks behind. Maternal Data Information LYNNE Calculator Estimated Delivery Date Method Current WG Current Estimate 12/16/23 Ultrasound #1 38w 6d Other Estimates 12/09/23 LMP (Certain) 39w 6d PFSH PFSH Medical History care in first trimester Home Medications ?Medication ?Instructions ?Recorded ?Last Taken ?Type ondansetron 4 mg disintegrating 4 mg PO Q6H #30 tabs 05/06/23 06/27/23 Rx tablet sertraline 50 mg tablet (Zoloft) 50 mg PO DAILY #60 tabs 10/12/23 Unknown Rx multivit-min no.71-iron fum 28 1 cap PO DAILY 11/24/23 12/06/23 History mg-folate no.1 1 mg-dha 300 mg capsule (PNV-[place]) cephalexin 500 mg capsule 500 mg PO BID #14 caps 12/07/23 Unknown Rx Allergy/AdvReac Type Severity Reaction Status Date / Time No Known Allergies Allergy Verified 12/08/23 09:08 Family History Sister Seizures Brother Autism Social History adopted: No household members: significant other current occupational status: employed 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 current occupational exposures/hazards: No pets and animals: Yes pets and animals: dog(s) history of recent travel: Yes ([place]) out of state: Yes out of country: No sexually active: Yes Smoking Status: Never smoker alcohol intake: never substance use type: does not use well-balanced diet: rarely or never caffeine: No eating out: rarely or never during the past year weight has: remained stable what type of physical activity do you participate in: none manuel/amish: None seatbelt use: always do you feel safe at home: Yes additional social history: BF [place] History 1 Elective abortions Hx Para 0 Spontaneous abortions Hx # Term Pregnancies Ectopic pregnancies Hx # Pregnancies Multiple births # of living children Visit Details Expected Delivery Route/Plan Labor Preferences- CB/BF classes: encouraged labor support person: Myra labor intervention preferences: [] pain management options preferred: epidural cut cord/dad catch: no : yes PP control planned: discussed discussed possible routes of delivery and associated risks: [] special requests: [] Plans Covid status: [] Flu vaccine: [] Tdap vaccine: declines Rhogam: na LARC form signed: yes Problem list reviewed and updated with the most current plan of care details and appropriate orders placed. Relevant counseling for the gestational age provided. Continue routine care and follow up unless otherwise noted in visit notes/problem list details OB Flowsheet Initial Weight: Not Recorded Date -?-?-?-?-?-?-?-?-?-?-?-?- EGA Weight BP Urine Prot -?-?-?-?-?-?-?-?-?-?-?-?- Glucose FHR FuHt Pres Dilation -?-?-?-?-?-?-?-?-?-?-?-?- Effaced St Visit Note 05/06/23 -?-?-?-?-?-?-?-?-?-?-?-?- 8w 0d 104 lb 8 oz 107/72 -?-?-?-?-?-?-?-?-?-?-?-?- 175 -?-?-?-?-?-?-?-?-?-?-?-?- kw- CRL not cons with dates. Cons with 8.0 week gestation. LYNNE adjusted. Wants to think about NIPT. 06/03/23 -?-?-?-?-?-?-?-?-?-?-?-?- w 0d 100 lb 4 oz 100/71 -?-?-?-?-?-?-?-?-?-?-?-?- 172 -?-?-?-?-?-?-?-?-?-?-?-?- kw-no vb/crampin g. having constant N/V. IV hydration and zofran ordered x4 times. MFM US ordered. Accepts NIPT today and declines AFP. 06/28/23 -?-?-?-?-?-?-?-?-?-?-?-?- 15w 4d 94 lb 2 oz 94/62 Negat nannette -?-?-?-?-?-?-?-?-?-?-?-?- Negative 160 -?-?-?-?-?-?-?-?-?-?-?-?- MH-Not feeling w ell. Has Uti and unable to keep antibiotic or zofran down. Has now lost 10# in last [address] Meier and sent to ED 06/30/23 -?-?-?-?-?-?-?-?-?-?-?-?- 15w 6d 102 lb 94/59 Negative -?-?-?-?-?-?-?-?-?-?-?-?- Negative 160 -?-?-?-?-?-?-?-?-?-?-?-?- SM- tolerating p o feeling much better. didn't need oral steroid pack 07/13/23 -?-?-?-?-?-?-?-?-?-?-?-?- 17w 5d 103 lb 105/73 Negative -?-?-?-?-?-?-?-?-?-?-?-?- Negative 150 -?-?-?-?-?-?-?-?-?-?-?-?- JV- still nausea mario but ran out of promethazine. refill given. RTO in 4 weeks. has anatomy scan scheduled soon. 08/08/23 -?-?-?-?-?-?-?-?-?-?-?-?- 21w 3d 110 lb 6 oz 92/60 Nega tive -?-?-?-?-?-?-?-?-?-?-?-?- Negative 153 -?-?-?-?-?-?-?-?-?-?-?-?- MH-No VB. Good F M. Nausea/vomiting improved. Has off and on pain over sternum. Lungs clear, heart NSR. Reassured. See PCP if worsens, cough fever etc. 09/08/23 -?-?-?-?-?-?-?-?-?-?-?-?- 25w 6d 124 lb 101/67 Negative -?-?-?-?-?-?-?-?-?-?-?-?- Negative 150 26 -?-?-?-?-?-?-?-?-?-?-?-?- Sm- no vb lof go od fm no regular ctx 09/28/23 -?-?-?-?-?-?-?-?-?-?-?-?- 28w 5d 126 lb 2 oz 98/66 Nega tive -?-?-?-?-?-?-?-?-?-?-?-?- Negative 155 27 -?-?-?-?-?-?-?-?-?-?-?-?- MH-no VB, LOF. G ood FM. Some RL pain. Discussed. Will have rpt cbc today 10/12/23 -?-?-?-?-?-?-?-?-?-?-?-?- 30w 5d 129 lb 8 oz 119/75 Nega tive -?-?-?-?-?-?-?-?-?-?-?-?- Negative 130 29 -?-?-?-?-?-?-?-?-?-?-?-?- KW- no vb/lof/ct x. good fm. requesting medication for anxiety and some depression sx. 10/26/23 -?-?-?-?-?-?-?-?-?-?-?-?- 32w 5d 127 lb 2 oz 99/69 Nega tive -?-?-?-?-?-?-?-?-?-?-?-?- Negative 140 30 -?--?-?-?-?-?-?-?-?-?-?-?- SM- no vb lof go od fm no regular ctx, growth US ordered 11/07/23 -?-?-?-?-?-?-?-?-?-?-?-?- 34w 3d 128 lb 103/68 Negative -?-?-?-?-?-?--?-?-?-?-?-?- Negative 140 30 -?-?-?-?-?-?-?-?-?-?-?-?- KW- no vb/lof/ct x. good fm. unable to schedule US reports not able to get ahold of scheduling. KW- no vb/lof/ctx. good fm. unable to schedule US reports not able to get ahold of scheduling. order was not placed, ordered today. scheduled for 11/08 at 1300 11/17/23 -?-?-?-?-?-?-?-?-?-?-?-?- 35w 6d 126 lb 4 oz 100/64 Nega tive -?-?-?-?-?-?-?-?-?-?-?-?- Negative 156 33 -?-?-?-?-?-?-?-?-?-?-?-?- MH-No VB, LOF. G ood FM. Reviewed normal growth US. Discussed meds for heartburn 11/24/23 -?-?-?-?-?-?-?-?-?-?-?-?- 36w 6d 127 lb 4 oz 106/65 Nega tive -?-?-?-?-?-?-?-?-?-?-?-?- Negative 120 33 34 -?-?-?-?-?-?-?-?-?-?-?-?- KW- no vb/lof/ct x. good fm. GBS today KW- no vb/lof/ctx. good fm. GBS today. 12/01/23 -?-?-?-?-?-?-?-?-?-?-?-?- 37w 6d 127 lb 8 oz 117/78 Nega tive -?-?-?-?-?-?-?-?-?-?-?-?- Negative 135 35 -?-?-?-?-?-?-?-?-?-?-?-?- JV- patient decl diego exam today. ordering another growth scan for anytime after the (one month from last) 12/08/23 -?-?-?-?-?-?-?-?-?-?-?-?- 38w 6d 126 lb 112/75 Negative -?-?-?-?-?-?-?-?-?-?-?-?- Negative 125 34 Cephalic -?-?-?-?-?-?-?-?-?-?-?-?- SM- no vb lof go od fm no regular ctx FH low- et growth scan LENORA NST FHR Rate Baby A Baseline: 150 Variability:: Moderate Accelerations:: 15 x 15 Decelerations:: None NST Reactive:: Yes FHR Category:: Category I Uterine Activity:: irregular ROS Constitutional Constitutional: Reports systems reviewed and no addt'l complaints, except as documented Eyes Eyes: Denies change in vision ENT HEENT: Reports systems reviewed and no addt'l complaints, except as documented; Denies headache(s) Cardiovascular Cardiovascular: Reports systems reviewed and no addt'l complaints, except as documented; Denies chest pain or dyspnea Respiratory/Chest Respiratory/Chest: Reports systems reviewed and no addt'l complaints, except as documented Gastrointestinal Gastrointestinal: Reports systems reviewed and no addt'l complaints, except as documented; Denies abdominal pain Genitourinary Genitourinary: Reports systems reviewed and no addt'l complaints, except as documented, contractions Details: present (irregular) and movement Details: present; Denies dysuria or genital lesions Musculoskeletal Musculoskeletal: Reports systems reviewed and no addt'l complaints, except as documented Neurologic Neurologic: Reports systems reviewed and no addt'l complaints, except as documented Endocrine Endocrinology: Reports systems reviewed and no addt'l complaints, except as d ocumented Vital Signs Vital Signs Vital Signs: 12/08/23 10:12/08/23 10:12/08/23 10:08 Temperature Temperature Source Tympanic Pulse Rate 73 Respiratory Rate Blood Pressure 126/86 H BP Systolic 126 BP Diastolic 86 Pulse Ox 12/08/23 10:08 12/08/23 10:08 12/08/23 10:08 Temperature 98.2 F Temperature Source Pulse Rate Respiratory Rate 16 Blood Pressure BP Systolic BP Diastolic Pulse Ox 100 Weight Weight: 126 lb Body Mass Index (BMI) 21.6 Physical Exam Const alert, oriented x3, no apparent distress and healthy appearing HEENT normocephalic and moist oral mucous membranes Head and Scalp: atraumatic Neck full ROM, no lymphadenopathy, supple and thyroid normal General: trachea midline Lymph Lymphatic: no lymphadenopathy noted Chest inspection of chest normal Resp normal respiratory effort Cardio regular rate GI normal to inspection, nondistended, normoactive bowel sounds, soft to palpation and non-tender Inspection: gravid external exam normal Manual OB Exam: estimated gestational size appropriate, presentation cephalic, dilated, effaced and station Extremity normal to inspection General Extremity: Negative for edema Skin no rashes or lesions noted Neuro no focal motor deficits and deep tendon reflexes 2+ bilaterally Motor Exam: strength 5/5 throughout and clonus absent Psych mental status grossly normal Labs Labs Labs: Blood Type A POSITIVE Antibody Screen NEGATIVE Hct 32.8 % (37-47) L Hgb 10.7 g/dL (12.0-15.0) L Obstetrics Ultrasound Syphilis Total Ab Non-reactive Rubella IgG Antibody Reactive (Nonreactive) Hep Bs Antigen Non-Reactive (Nonreactive) Hepatitis C Antibody Non-Reactive (Nonreactive) Chlamydia DNA (HARPREET) Negative (Negative) N.gonorrhoeae DNA (HARPREET) Negative (Negative) HIV 1&2 Antibody Non-Reactive (Nonreactive) Glucose 1 Hr 50 gm 103 mg/dL (70-140) Assessment & Plan (1) Uterine size-date discrepancy, third trimester: COMMENT: growth US 44% EFW. Normal (2) Anemia affecting in third trimester: COMMENT: hasn't been taking PNV- instructed to start and recheck cbc in 4 weeks (3) UTI (urinary tract infection) during : QUALIFIERS: Trimester: second trimester Qualified Code(s): O23.42 - Unspecified infection of urinary tract in , second trimester COMMENT: ASHISH in 4 weeks:08/07:negative (4) : QUALIFIERS: Weeks of gestation: 38 weeks Qualified Code(s): Z3A.38 - 38 weeks gestation of COMMENT: GBS neg, nl anatomy, NIPT low risk,declines carrier testing and AFP (5) Supervision of normal first teen : QUALIFIERS: Trimester: third trimester Qualified Code(s): Z34.03 - Encounter for supervision of normal first , third trimester COMMENT: [id number], LYNNE 12/09/23 girl Princess Renteria (6) Anxiety: COMMENT: stable (7) Family history of autism: COMMENT: Brother (8) IUGR (intrauterine growth restriction): (9) Encounter for induction of labor: PLAN: Plan Patient presents IOL, plan management for with pit fb. Pain management: plans epidural. GBS negative. Management of any complications: none I have reviewed the [facility] and made any clinically relevant updates.
[2023-12-08] MEDS: Lactated Ringers 1,000 ML 50 ML IV (19:55)
[2023-12-08 20:10] LABS: Absolute Neutrophil Count 6.7 X10^3/uL (2.0-7.7); Basophil# 0.03 X10^3/uL; Basophil% 0.3 % (0-1); Eosinophil# 0.06 X10^3/uL; Eosinophils% 0.7 % (0-5); Hematocrit 34.9 % (37-47); Hemoglobin 11.1 g/dL (12.0-15.0); Lymphocyte % 15.7 % (19-41); Mean Corp Hgb Conc 31.8 g/dL (32-36); Mean Corpuscular Hgb 25.7 pg (27.0-32.0); Mean Corpuscular Volume 80.8 fL (81-99); Mean Platelet Vol. 10.1 fl (6.2-12.0); Monocyte# 0.73 X10^3/uL; Monocyte% 8.2 % (0-10); NRBC Flagged by Analyzer 0 % (0-5); Neutrophil # 6.65 X10^3/uL (2.7-7.7); Neutrophil % 74.8 % (47-70); Platelet Count 342 K/mm3 (150-450); RBC Distribution Width CV 12.4 % (11.6-14.6); RBC Distribution Width SD 36.1 fl (35.1-43.9); Red Blood Count 4.32 M/mm3 (4.2-5.4); White Blood Count 8.9 K/mm3 (4.4-11.0)
[2023-12-08 20:23] VITALS: BP 120/78; PULSE 86; RESP 16; TEMP 37.1
[2023-12-08 20:41] LABS: Syphilis Antibodies Non-reactive
[2023-12-08] MEDS: 0.9% Normal Saline Single 100 ML IV.SOLN. INTRA-UTER (21:05)
[2023-12-08] MEDS: Oxytocin 15 Units/NS 250ml 15 UNITS/250 ML IV.SOLN 2 UNITS IV (21:34)
[2023-12-08] MEDS: Ondansetron 4 MG/2 ML Vial IV (22:21)
[2023-12-08 22:25] VITALS: BP 132/83; PULSE 75; RESP 16
[2023-12-08] MEDS: fentaNYL 100 MCG/2 ML Ampul IV (22:50)
[2023-12-08 23:35] VITALS: BP 131/82; PULSE 70; RESP 16; TEMP 36.9
[2023-12-09] VITALS (59 sets, daily range): BP systolic 90–145; BP diastolic 54–84; PULSE 56–171; RESP 16; TEMP 36.1–37.1; O2SAT 84–100
[2023-12-09] MEDS: Lactated Ringers 1,000 ML 999 ML IV (02:48)
[2023-12-09] MEDS: fentaNYL-bupivacaine (epidural) 100 ML BAG EPIDURAL ×2 (03:39→10:33)
[2023-12-09] MEDS: Lactated Ringers 1,000 ML 200 ML IV ×2 (07:10→12:53)
[2023-12-09] MEDS: Mag /Aluminum/Simeth WCH UDC 30 ML ORAL.SUSP PO (07:56)
--- NOTE | 2023-12-09 08:38 | PN_ITS ---
Progress Note pt is laying in bed comfortably with epidural running. She consents to possible IUPC if no cervical change current tracing: FHT: Moderate variability reactive no decelerations category I tracing [place]: q2-3 min Contractions cx still 6/80/0 IUPc placed A/P: IUGR - IOL continue pitocin, increase if MVU's less than 200 and if not tachysystole.
[2023-12-09] MEDS: LACTATED RINGERS 500 ML 999 ML IV (08:40)
[2023-12-09] MEDS: Cephalexin 500 MG Capsule PO (10:33)
[2023-12-09] MEDS: 0.9% Saline Lock 10 ML Syringe IV ×2 (12:44→15:33)
[2023-12-09] MEDS: Famotidine 200 MG/20 ML MDV 20 MG in 0.9% Normal Saline (Pres. free 8 ML 300 MG IV (12:44)
[2023-12-09] MEDS: Methylergonovine 0.2 MG/ML Ampul IM (15:11)
--- NOTE | 2023-12-09 15:22 | EX.PCM.OBRPT ---
Assessment & Plan (1) Encounter for induction of labor: (2) IUGR (intrauterine growth restriction): (3) Dehydration during : (4) Uterine size-date discrepancy, third trimester: COMMENT: growth US 44% EFW. Normal (5) Anemia affecting in third trimester: COMMENT: hasn't been taking PNV- instructed to start and recheck cbc in 4 weeks (6) UTI (urinary tract infection) during : QUALIFIERS: Trimester: second trimester Qualified Code(s): O23.42 - Unspecified infection of urinary tract in , second trimester COMMENT: ASHISH in 4 weeks:08/07:negative (7) Family history of autism: COMMENT: Brother (8) Anxiety: COMMENT: stable (9) Supervision of normal first teen : QUALIFIERS: Trimester: third trimester Qualified Code(s): Z34.03 - Encounter for supervision of normal first , third trimester COMMENT: [id number], LYNNE 12/09/23 girl Princess Renteria (10) : QUALIFIERS: Weeks of gestation: 38 weeks Qualified Code(s): Z3A.38 - 38 weeks gestation of COMMENT: GBS neg, nl anatomy, NIPT low risk,declines carrier testing and AFP Maternal Data Information LYNNE Calculator Estimated Delivery Date Method Current WG Current Estimate 12/16/23 Ultrasound #1 39w 0d Other Estimates 12/09/23 LMP (Certain) 40w 0d Vaginal Delivery Maternal Presentation Maternal Presentation: Medically Indicated Induction Type of Induction: Pitocin, Amniotomy and Cytotec Operative Information Date of Procedure: 12/09/23 Pre-Operative Diagnosis: 18 y/o @ 39 weeks, IUGR Post-Operative Diagnosis: 18 y/o @ 39 weeks, IUGR Surgery / Procedure Performed: Spontaneous Vaginal Delivery Type of Anesthesia: Epidural Drain: Lee to straight drain Estimated Blood Loss: 300cc Findings Description of Procedure: Patient began pushing and delivered the head in the JAYLON presentation. The head was delivered atraumatically. The anterior and posterior shoulders delivered without complication followed by the rest of the and the was placed on the maternal abdomen. Delayed cord clamping was employed for approximately 60 seconds. Cord was clamped and cut and gentle traction was applied to the cord and the placenta delivered spontaneously immediately following it was noted to be intact with three-vessel cord. The perineum and vagina were inspected and noted to be intact. EBL was 300 cc. Patient and tolerated delivery well. baby Girl Princess Dumont Presentation: Vertex Amniotic Membrane Rupture Type: Spontaneous Amniotic Fluid Description: Clear Placental Delivery Description: Spontaneous Placenta Disposition: [facility] Cord Vessel Description: 3 Vessels Cord Entanglement: None Infant A Gender: Female (1 minute): 8 (5 minute): 9 Delayed Cord Clamping: Yes Post Vaginal Delivery Medications Given After Delivery: IV Pitocin Episiotomy Description: None Laceration: None Complication Complications: None Multi Select Codes Urinary/Genital Urinary/Genital CPT Codes: 07447 Vaginal Delivery [facility]
[2023-12-09] MEDS: Ondansetron 4 MG/2 ML Vial IV (15:32)
[2023-12-09] MEDS: Oxytocin 15 Units/NS 250ml 15 UNITS/250 ML IV.SOLN 83 UNITS IV (15:38)
--- NOTE | 2023-12-09 16:09 | DCINST_ITS ---
Discharge Instructions Diet Discharge Diet: No restrictions Activity Discharge Activity: Return to Normal Activity, May Not Drive (while taking narcotic pain medications.) and May Shower May resume sexual activity in: 4-6 weeks Dressing / Incision Call your doctor if your incision/area has: Continuous Slow Oozing, Sudden Increased Bleeding, Increased Pain/ Swelling, Increased Redness and Foul Smelling Discharge Follow Up Care Please Follow Up With: Angelia Perales, When: Call [phone] to make an appointment with your doctor in 6 weeks. If you had elevated blood pressure or 4th degree laceration, you will need to be seen in 2 weeks. Test Results: Test results from this visit will be discussed in further detail at your follow- up appointment, if applicable. Discharge Plan Admission Admit Date/Time: 12/08/23 13:15 Attending Provider: Angelia Perales Primary Care Provider: Care Physician,No Primary Discharge Orders/Prescriptions Prescriptions: No Action ondansetron 4 mg tablet,disintegrating 4 mg PO Q6H Qty: 30 3RF sertraline [Zoloft] 50 mg tablet 50 mg PO DAILY Qty: 60 0RF PNV-[place] 28-1-300 mg capsule 1 cap PO DAILY cephalexin 500 mg capsule 500 mg PO BID Qty: 14 0RF Referrals / Follow Up: Care Physician,No Primary [Primary Care Provider] -
[2023-12-09] MEDS: Acetaminophen 500 MG Tablet 1000 MG PO (17:12)
[2023-12-10 00:15] VITALS: BP 96/68; PULSE 80; RESP 16; TEMP 36.4; O2SAT 95
[2023-12-10 04:25] VITALS: BP 99/67; PULSE 73; RESP 16; TEMP 36.8; O2SAT 96
[2023-12-10] MEDS: Acetaminophen 500 MG Tablet 1000 MG PO (06:00)
[2023-12-10 07:30] VITALS: BP 105/68; PULSE 88; RESP 18; TEMP 36.6; O2SAT 98
--- NOTE | 2023-12-10 11:14 | PN.OBGYN_ITS ---
Subjective Subjective patient is sitting up in bed with baby. She denies heavy bleeding, shortness of breath or chest pain. She would like to be discharged after the baby has been cleared by the duplicator punch operator. She is planning to breast feed. She declines control until after discussing options at her 6 week post visit. Objective Data Objective Data Vital Signs: Vital Signs Temp Pulse Resp BP Pulse Ox O2 Del Method 97.8 F 88 18 105/68 98 Room Air 12/10/23 07:30 12/10/23 07:30 12/10/23 07:30 12/10/23 07:30 12/10/23 07:30 12/10/23 07:30 Oxygen Delivery Method Room Air Weight: 126 lb Body Mass Index (BMI) 21.6 Intake & Output: Intake and Output for Last 24 Hours 12/08/23 12/09/23 12/10/23 23:59 23:59 23:59 Intake Total 5.87 / 5.87 4444.13 / 4444.13 Output Total 1650 / 1650 Balance 5.87 / 5.87 2794.13 / 2794.13 Lab / Micro Data 12/08/23 19:55 ROS Constitutional Constitutional: Denies chills, fatigue, fever(s), poor appetite or weakness Eyes Eyes: Denies blurry vision, change in vision, seeing flashes or spots in vision ENT HEENT: Denies dizziness, headache(s), loss taste/smell or sore throat Cardiovascular Cardiovascular: Denies chest pain, dizziness, dyspnea, irregular heart rhythm, palpitations or rapid heart rate Respiratory/Chest Respiratory/Chest: Denies chest tightness, cough, dyspnea or breast pain Gastrointestinal Gastrointestinal: Denies abdominal pain, constipation or vomiting Genitourinary Genitourinary: Denies dysuria or flank pain Musculoskeletal Musculoskeletal: Denies difficulty walking, joint pain, limited range of motion or numbness Neurologic Neurologic: Denies abnormal movements, abnormal speech, dizziness, numbness, seizure-like activity or syncope Psychiatric Psychiatric: Denies anxiety, behavioral changes, change in appetite, confusion, depression or suicidal thoughts Physical Exam Const alert, oriented x3 and no apparent distress General Appearance: cooperative and comfortable Resp normal respiratory effort Cardio regular rate GI normal to inspection, nondistended, normoactive bowel sounds GI Narrative: uterus is firm below umbilicus Palpation: soft Back/Spine no CVA tenderness and thoraco-lumbar ROM normal Extremity normal to inspection, no clubbing, cyanosis or edema, no calf tenderness and no pedal edema Psych mental status grossly normal, thought process normal, cooperative, affect normal, speech normal, activity/motor behavior normal, denies homicidal ideation and denies suicidal ideation Assessment & Plan (1) Vaginal delivery: COMMENT: ANASI 12/09/23 PLAN: Plan s/p PPD # 1 1. routine post delivery care 2. breast feeding- support given 3. rh positive 4. rubella immune
[2023-12-10 12:50] VITALS: BP 131/88; PULSE 73; RESP 20; TEMP 36.6; O2SAT 97
--- NOTE | 2023-12-10 14:15 | CASEMGMT ---
Social Work Assessment Labor and Delivery Unit Patient Address: [address] [place] [address], [place] [address] Phone number: Date of Referral: 12/09/2023 Time of Referral:? 07:12 Referred By: Shruti Meier Date of Intervention: 12/10/23? Time of Intervention: 14:13 Reason for Referral:? Anxiety History obtained from: Medical records and mother of baby (MOB) Tigist Perdomo. Household composition: MOB, father of baby (FOB) Myra Mcleod, age 20 and baby/daughter, Princess Mcleod, born 12/09/23. Patient's parent/guardian status:? MOB and FOB aren?t but are living together. MOB and FOB have been together for almost 2 years. FOB is involved and both will provide care for baby. Neither MOB nor FOB have any other children. MOB denied any domestic violence, described the FOB as a big support and reported feeling safe at home. Medical History: ?KINZA has had one and one . MOB received care through [facility] beginning at 8weeks and 0 days. care appointments were documented as regular and consistent throughout KINZA?s . Labor was induced and MOB delivered vaginally. Baby?s weight: 5 lbs,14 oz. Apgars: 8 and 9. Neurology Manager has not yet been secured however MOB reported she was instructed to call on 12/12/23.? MOB reported she is securing the director of market intelligence through [facility]. Educational Status: MOB and FOB are both high school graduates and MOB denied any issues or concerns with reading or writing with either herself or the FOB. Financial Status: MOB reported household income is sufficient to meet the needs of her family at this time. MOB reported she?s currently unemployed however will be seeking employment as soon as she?s medically cleared to work.? 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 The plan is for the maternal and paternal grandmothers to care for baby once MOB secures a job. Supplies: KINZA reported she has all of the supplies she needs for baby at this time including but not limited to: Car seat, crib, diapers, bottles and clothing. Childcare/Caregiver(s): Both MOB and FOB will both provide care for baby and maternal grandmother (MGM) and paternal grandmother (PGM) will also help provide childcare when needed. ? Transportation:? MOB reported both she and the FOB are both licensed drivers and have two reliable vehicles to take baby to and from all medical appointments. No transportation issues identified. Programs/Agencies Involved: MOB denied any current programs or agencies involved at this time however MOB reported she is going to look into [facility]. ?poultry process worker asked MOB if she would like written information or direct assistance with getting connected with [place] which she declined. MOB declined any involvement with [facility], [facility], counseling or legal. ?? Children Services/Legal Issues:? Denied. Behavioral Health Issues: ??Mental Health History:? MOB reported she has a history of depression and anxiety and is on prescribed medication. MOB reported she used to be actively involved with counseling at [facility] where she went ?a few times? and described it as helpful. No current counseling involvement. MOB reported she feels as though her depression and anxiety are being managed at this time and denied any thoughts of previous or suicidal ideation. poultry process worker administered the [place] Depression Scale and patient?s score was 7. poultry process worker provided education on what to pay attention to and how to ask for help when needed which MOB reported she understood. ??Substance Use History: MOB denied any of the following use or abuse with her or the FOB: Alcohol, marijuana, prescription drug abuse, heroin, meth, cocaine, tobacco or any other drugs.?? Family History:? Denied.? Drug Screens: None. Family/Social Stressors: MOB denied any current family or social stressors at this time. ?? Support Systems: Ample. MOB identified her biggest supports as the FOB as well as patient?s mother and FOB?s mother. ?? Depression/Shaken Baby/Safe Sleeping: poultry process worker provided verbal and written education on PPD, Safe Sleeping and Shaken Baby.? MOB verbalized an understanding. ??? ASSESSMENT:? MOB provided consent to social work visit. Upon arrival, baby was in her crib, MOB was in the hospital bed and FOB was in a nearby chair and was stretched out and sleeping. FOB never woke up during the assessment. MOB was referred due to having a history of anxiety and depression which MOB stated is currently being managed at this time. MOB described a strong support system and will reach out for help when needed.? MOB reported feeling safe in her home and safe in the relationship with the FOB.? Baby started to cry during the visit and MOB got up immediately and picked up baby and was consoling baby.? MOB appeared to be attached and bonded with baby and was providing comfort and being attentive to baby throughout the visit. Safe Plan of Care for related to substance use: N/A; not needed. ? PLAN:?Baby to be discharged home when medically ready/cleared by doctor.? poultry process worker also provided written information on depression, depression resources and [facility] per MOB?s preference. ?No other services requested or indicated at this time. Angelia Gupta, MOISTURE METER OPERATOR, MEMBER OF THE LEGISLATIVE ASSEMBLY
[2023-12-10 15:58] VITALS: BP 111/72; PULSE 77; RESP 16; TEMP 36.8; O2SAT 97
== END 2023-12-10 16:14 | disposition home or self-care (01) | DRG 807 ==
LOC: WPOUT 13:20 → WP 13:20
PROVIDERS: Obstetrics & Gynecology; Admitting Provider Obstetrics & Gynecology; Referring Provider Obstetrics & Gynecology; Visit Provider Obstetrics & Gynecology
DX: O36.5930 Maternal care for other known or suspected poor fetal growth, third trimester, not applicable or unspecified (principal); Z37.0 Single live birth; O99.344 Other mental disorders complicating childbirth; F41.9 Anxiety disorder, unspecified; O99.02 Anemia complicating childbirth; Z3A.39 39 weeks gestation of pregnancy; Z79.899 Other long term (current) drug therapy
CPT/HCPCS: 59025; 59050; 76816; 85025; 86780; 86850; 86900; 86901; 99221; J7120; A4216; G0378; J2405; J3490

== ENCOUNTER 2024-02-04 22:24 | Emergency (ER) | payer OTHER, SELFPAY ==
[2024-02-04 22:24] VITALS: BP 137/86; PULSE 85; RESP 16; TEMP 36.6; O2SAT 99; BMI 20.7
--- NOTE | 2024-02-04 22:57 | RAD_ITS ---
EXAM: XR CHEST, 2 VIEWS CLINICAL INDICATION: chest pain TECHNIQUE: Frontal and lateral views of the chest. COMPARISON: 04/27/2023 FINDINGS: LUNGS AND PLEURAL SPACES: Unremarkable. No consolidation or edema. No pneumothorax. No effusion. HEART: Unremarkable. Cardiac silhouette not enlarged. MEDIASTINUM: Central airways and mediastinal contour are unremarkable. BONES/JOINTS: Unremarkable. No acute fracture. SOFT TISSUES: Unremarkable. RAD/Chest PA and Lateral IMPRESSION: No radiographic evidence of acute cardiopulmonary disease. Electronically Signed: Garland Schrader MD at 23:49 EDT ,
--- NOTE | 2024-02-04 22:57 | EKG12_ITS ---
Test Reason : CP Blood Pressure : / mmHG Vent. Rate : 085 BPM Atrial Rate : 085 BPM P-R Int : 146 ms QRS Dur : 080 ms QT Int : 384 ms P-R-T Axes : 065 070 047 degrees QTc Int : 456 ms Normal sinus rhythm with sinus arrhythmia Normal ECG Confirmed by Delvis Fan ([id number]), visual effects editor HANK KAYE ([id number]) on 02/06/2024 9:39:04 AM Referred By: VADIM Confirmed By:Delvis Fan
--- NOTE | 2024-02-04 23:02 | EX.ED.DYSGE1 ---
HPI History of Present Illness Chief Complaint: Chest Pain Informant: patient and spouse/S.O. Narrative Narrative: Patient is a 18-year-old female with no significant past medical history. She is 2 months after vaginal delivering at full-term. She states she did not have complications of such as gestational diabetes gestational hypertension or preeclampsia. She reports that over the last few days she will have intermittent sharp abdominal/chest discomfort that radiates from the upper abdomen through the sternum towards her throat. She states will typically last about 10 to 20 minutes and then resolve. However this evening is persisted for the last 1 to 2 hours and therefore she comes in for evaluation. She denies any family history of cardiac disease at a young age. She denies any history of DVT/PE. She denies any illicit drug use. Patient also states that today she has noticed discomfort with urination but denies hematuria or discharge or concern for STD. [facility] Medical History care in first trimester Home Medications ?Medication ?Instructions ?Recorded ?Last Taken ?Type multivit-min no.71-iron fum 28 1 cap PO DAILY 11/24/23 12/07/23 20:09 History mg-folate no.1 1 mg-dha 300 mg 1 cap capsule (PNV-[place]) cholecalciferol (vitamin D3) 50 50 mcg PO QDAY 01/20/24 Unknown History mcg (2,000 unit) capsule famotidine 20 mg tablet (Pepcid) 20 mg PO BID 30 days #60 tabs 02/05/24 Unknown Rx Allergy/AdvReac Type Severity Reaction Status Date / Time No Known Allergies Allergy Verified 01/20/24 11:15 Family History Sister Seizures Brother Autism Social History (Updated 01/20/24 @ 11:18 by Annamaria Oh) adopted: No household members: significant other number of children: 1 current occupational status: employed 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 current occupational exposures/hazards: No pets and animals: Yes pets and animals: dog(s) history of recent travel: Yes ([place]) out of state: Yes out of country: No sexually active: Yes Smoking Status: Never smoker alcohol intake: never substance use type: does not use well-balanced diet: rarely or never caffeine: No eating out: rarely or never during the past year weight has: remained stable what type of physical activity do you participate in: none manuel/yazidism: None seatbelt use: always do you feel safe at home: Yes additional social history: LOBO ZIMMER ROS ED Constitutional Constitutional ED: Denies chills or fever(s) Eyes Eyes: Denies blurry vision or change in vision ENT ENT ED: Denies sore throat Cardiovascular Cardiovascular: Reports chest pain; Denies palpitations or racing heartbeat Respiratory/Chest Respiratory/Chest: Denies cough or dyspnea Gastrointestinal Gastrointestinal: Reports abdominal pain; Denies diarrhea, nausea or vomiting Genitourinary Genitourinary ED: Reports dysuria; Denies hematuria or urinary frequency Musculoskeletal Musculoskeletal: Denies back pain or myalgias Integumentary Denies rash Neurologic Neurologic: Denies headache(s) Hematologic/Lymphatic Hematologic/Lymphatic: Denies easy bleeding or easy bruising EXAM Physical Exam Const Vital Signs: 02/04/24 22:24 Temperature 98 F Temperature Source Oral Pulse Rate 85 Respiratory Rate 16 Blood Pressure 137/86 H Blood Pressure Mean 103 Pulse Ox 99 Oxygen Delivery Method Room Air Positive well nourished and well developed General Appearance ED: well developed; Negative for pallor HEENT Reports moist mucous membranes HEENT Narrative: No tongue or lip swelling no oral lesions no airway edema or compromise No signs of infection noted in the posterior pharynx Eyes PERRL and EOMs intact bilaterally General Eye ED: Negative for scleral icterus Neck supple and no JVD Chest Wall palpation of chest normal Chest Narrative: No bony deformity or crepitance noted Resp normal respiratory effort and clear to auscultation bilaterally Cardio regular rate and regular rhythm Rate: other Other Details: Regular rate and rhythm without murmurs rubs or gallop Radial and carotid pulses are equal and symmetric GI non-distended and no masses GI Narrative: Pain with palpation in the midepigastric region without voluntary guarding or rigidity. Negative Austin sign. No pulsatile mass Auscultation: normoactive bowel sounds Palpation: soft Back/Spine no CVA tenderness Extremity normal to inspection Extremity Narrative: No asymmetric edema no pitting edema negative Homans' sign bilaterally Neuro oriented x3, CN's II-XII intact bilaterally and no sensory deficits noted Sensorium / Orientation: alert Motor Exam: strength 5/5 throughout Psych mental status grossly normal Skin no rashes or lesions noted General Skin Exam: Negative for jaundice or pallor MDM MDM MDM Narrative Medical decision making narrative: Patient arrived to the ER with stable vitals and in no acute distress. She is low risk for acute coronary syndrome as well as DVT/PE. Her physical exam and history is most consistent with gastritis/GERD. However with pain in the midepigastric region there is concern for pancreatitis versus biliary colic or acute cholecystitis. With her report of dysuria as well there is concern potential UTI. Also in order to ensure that her discomfort is not secondary to lung pathology such as pneumonia or pneumothorax a chest x-ray was ordered. Patient's troponin is less than 3 which correlates with her EKG indicating no signs of ACS or cardiac dysrhythmia. Chest x-ray revealed no acute lung pathology. Blood work showed normal lipase and liver enzymes going against pancreatitis or biliary colic/acute cholecystitis. After receiving a GI cocktail and Pepcid patient had resolution of her symptoms indicating this is most likely gastritis/GERD. Therefore as patient is low risk for acute coronary syndrome and has negative workup and improvement of symptoms there is no need for further evaluation and she is otherwise safe for discharge. History & Record Review Discussion w/independent historian: Patient and Significant other Lab Data Attestation: I reviewed the patient's lab results. Labs: Laboratory Results - last 24 hr 02/04/24 23:12 WBC 7.4 RBC 4.83 Hgb 11.9 L Hct 39.1 MCV 81.0 MCH 24.6 L MCHC 30.4 L RDW Std Deviation 44.8 H RDW Coeff of Billy 15.1 H Plt Count 355 MPV 9.9 Immature Gran % (Auto) 0.300 Neut % (Auto) 49.9 Lymph % (Auto) 36.7 [place] % (Auto) 10.0 Eos % (Auto) 2.3 Baso % (Auto) 0.8 Absolute Neuts (auto) 3.7 Absolute Lymphs (auto) 2.71 Nucleated RBC % 0 Sodium 138 Potassium 3.6 Chloride 105 Carbon Dioxide 28.0 Anion Gap 5 BUN 10 Creatinine 0.75 Estim Creat Clear Calc 103.32 Est GFR (MDRD) Af Amer 126 Est GFR (MDRD) Non-Af 104 BUN/Creatinine Ratio 13.3 Glucose 96 Calcium 9.3 Total Bilirubin 0.20 Direct Bilirubin 0.07 AST 24 ALT 60 H Alkaline Phosphatase 74 Troponin I High Sens < 3 L Total Protein 6.9 Albumin 3.7 Globulin 3.2 Lipase 44 Urine Color Yellow Urine Clarity Clear Urine pH 8.0 Ur Specific [place] 1.010 Urine Protein Negative Urine Glucose (UA) Normal Urine Ketones Negative Urine Occult Blood Negative Urine Nitrite Negative Urine Bilirubin Negative Urine Urobilinogen Normal Ur Leukocyte Esterase Negative Urine RBC 0 SEEN Urine WBC 0 SEEN Ur Squamous Epith Cells 0-5 SEEN Urine Bacteria 0 SEEN Urine Mucus 0 SEEN Radiography Diagnostic Testing: Clinical Impression(s) from Imaging Studies Chest X-Ray 02/04/24 22:57 IMPRESSION: No radiographic evidence of acute cardiopulmonary disease. Electronically Signed: Garland Schrader MD at 23:49 EDT , 2 view chest x-ray as interpreted by the emergency medicine physician reveals no acute infiltrate pneumothorax pleural effusion or widening the mediastinum Discharge Plan Triage Chief Complaint: Chest Pain Other Complaint: Complaint ED Provider: Joon Varela Dx/Rx/DC Orders Clinical Impression: GERD (gastroesophageal reflux disease), Acute nonspecific chest pain with low risk of coronary artery disease, Dysuria Instructions: Dysuria, ED GERD (Adult) Prescriptions: New famotidine [Pepcid] 20 mg tablet 20 mg PO BID 30 Days Qty: 60 0RF No Action PNV-[place] 28-1-300 mg capsule 1 cap PO DAILY cholecalciferol (vitamin D3) 50 mcg (2,000 unit) capsule 50 mcg PO QDAY Primary Care Provider: Yara Henry REPTILE KEEPER Referrals: Care Physician,No Primary [Non-Staff] - Activity Restrictions/Additional Instructions: Please follow-up with your family doctor for repeat evaluation. Your urine sample showed no signs of infection this evening but if symptoms persist after a few days please follow-up with your family doctor or return to the ER for repeat urine sample to ensure there is no infection. Take the Pepcid as directed to help control any further abdominal/chest discomfort and return to the ER should you have any further concerns Print Language: Vietnamese Disposition Disposition: Home, Self Care
[2024-02-04] MEDS: Lidocaine 2% Viscous15 ML UDC 15 ML PO (23:17)
[2024-02-04] MEDS: Mag Hydrox/Al Hydrox/Simeth 30 ML UDC PO (23:17)
[2024-02-04] MEDS: Famotidine 200 MG/20 ML MDV 20 MG in 0.9% Normal Saline (Pres. free 8 ML 300 MG IV (23:17)
[2024-02-04 23:18] LABS: Bacteria 0 SEEN /hpf (None Seen); Mucous, Urine 0 SEEN /hpf (<or=2+); Red Blood Cells-Urine 0 SEEN /hpf (0-5); White Blood Cells 0 SEEN /hpf (0-5)
[2024-02-04 23:20] LABS: Absolute Lymphocyte Count 2.71 X10^3/uL (0.83-4.51); Absolute Neutrophil Count 3.7 X10^3/uL (2.0-7.7); Basophil# 0.06 X10^3/uL; Basophil% 0.8 % (0-1); Eosinophil# 0.17 X10^3/uL; Eosinophils% 2.3 % (0-5); Hematocrit 39.1 % (37-47); Hemoglobin 11.9 g/dL (12.0-15.0); Lymphocyte # 2.71 X10^3/ul (0.83-4.51); Lymphocyte % 36.7 % (19-41); Mean Corp Hgb Conc 30.4 g/dL (32-36); Mean Corpuscular Hgb 24.6 pg (27.0-32.0); Mean Platelet Vol. 9.9 fl (6.2-12.0); Monocyte# 0.74 X10^3/uL; NRBC Flagged by Analyzer 0 % (0-5); Neutrophil # 3.69 X10^3/uL (2.7-7.7); Neutrophil % 49.9 % (47-70); Platelet Count 355 K/mm3 (150-450); RBC Distribution Width CV 15.1 % (11.6-14.6); RBC Distribution Width SD 44.8 fl (35.1-43.9); Red Blood Count 4.83 M/mm3 (4.2-5.4); White Blood Count 7.4 K/mm3 (4.4-11.0)
[2024-02-04 23:21] LABS: Color, Urine Yellow (Yellow); Glucose, Dipstick Normal (Normal); Ketone-Dipstick Negative (Negative); Leukocyte Esterase-Dipstick Negative /ul (Negative); Nitrite-Dipstick Negative (Negative); Occult Blood-Urine Negative /ul (Negative); Protein-Dipstick Negative (Negative); Urine Bilirubin Dipstick Negative (Negative); Urine Clarity Clear (Clear); Urine Urobilinogen Normal (Normal)
[2024-02-04 23:28] LABS: Squamous Epithelial Cells - UA 0-5 SEEN /hpf (5-10)
[2024-02-04 23:40] LABS: AST(SGOT) 24 U/L (15-37); Alanine Aminotransfer ALT/SGPT 60 U/L (13-56); Albumin, Serum 3.7 g/dL (3.2-5.0); Alkaline Phosphatase 74 U/L (45-117); Anion Gap 5 (5-15); BUN 10 mg/dL (7-18); BUN/Creat Ratio 13.3 RATIO (10-20); Bilirubin, Direct 0.07 mg/dL (0.00-0.30); Calcium,Total 9.3 mg/dL (8.5-10.1); Chloride 105 mmol/L (98-107); Creatinine, Serum 0.75 mg/dL (0.55-1.02); EST Glomerular Filtration Rate 104 mL/min (>60); Est Glom Filt Rate - Afr Amer 126 mL/min (>60); Estimated Creatinine Clearance 103.32 ml/min; Globulin 3.2 g/dL (2.2-4.2); Glucose 96 mg/dL (74-106); Lipase 44 U/L (13-75); Potassium 3.6 mmol/L (3.5-5.1); Protein, Total 6.9 g/dL (6.4-8.2); Sodium Level 138 mmol/L (136-145); Troponin-I HS < 3 pg/mL (3.0-54.0)
[2024-02-05 00:20] VITALS: BP 108/46; PULSE 81; RESP 16; TEMP 36.2; O2SAT 98
== END 2024-02-05 00:22 | disposition home or self-care (01) ==
PROVIDERS: Emergency Provider Emergency Medicine; PCP Nurse Practitioner Women's Health; Visit Provider Emergency Medicine
DX: K21.9 Gastro-esophageal reflux disease without esophagitis (principal); R07.9 Chest pain, unspecified; R30.0 Dysuria
CPT/HCPCS: 71046; 80048; 80076; 81001; 83690; 84484; 85025; 93005; 96365; 99283; A4216; J3490

== ENCOUNTER 2024-03-06 12:01 | Emergency (ER) | payer OTHER, SELFPAY ==
[2024-03-06 12:02] VITALS: BP 129/104; PULSE 75; RESP 18; TEMP 36.6; O2SAT 98; BMI 20.5
--- NOTE | 2024-03-06 12:26 | EDS_ITS ---
HPI History of Present Illness Chief Complaint: Syncope Informant: patient and parent Narrative Narrative: ED for evaluation syncopal episode. She surgical waiting area for mom who had a hysterectomy. She went to the postanesthesia recovery area standing for 10 minutes she felt lightheaded warm and passed out. No prodromal chest pains. No cough. No recent vomiting or diarrhea. No urinary symptoms. 3 months . Reports she was anemic during that time. No history of blood transfusions. Last menstrual period 2 weeks ago. Currently just feels fatigued. Denies any bloody stools. Prior similar symptoms: Yes PFSH PFSH Medical History Vaginal delivery care in first trimester Home Medications ?Medication ?Instructions ?Recorded ?Last Taken ?Type multivit-min no.71-iron fum 28 1 cap PO DAILY 11/24/23 12/07/23 20:09 History mg-folate no.1 1 mg-dha 300 mg 1 cap capsule (PNV-[place]) cholecalciferol (vitamin D3) 50 50 mcg PO QDAY 01/20/24 Unknown History mcg (2,000 unit) capsule famotidine 20 mg tablet (Pepcid) 20 mg PO BID 30 days #60 tabs 02/05/24 Unknown Rx citalopram 20 mg tablet 20 mg PO DAILY #30 tabs 02/29/24 Unknown Rx Allergy/AdvReac Type Severity Reaction Status Date / Time No Known Allergies Allergy Verified 02/29/24 13:38 Family History Sister Seizures Brother Autism Social History adopted: No household members: significant other number of children: 1 current occupational status: employed 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 current occupational exposures/hazards: No pets and animals: Yes pets and animals: dog(s) history of recent travel: Yes ([place]) out of state: Yes out of country: No sexually active: Yes Smoking Status: Never smoker alcohol intake: never substance use type: does not use well-balanced diet: rarely or never caffeine: No eating out: rarely or never during the past year weight has: remained stable what type of physical activity do you participate in: none manuel/orthodox: None seatbelt use: always do you feel safe at home: Yes additional social history: BF Viola ROS ROS ED Constitutional Constitutional ED: Denies chills, fever(s) or sweats Eyes Eyes: Denies change in vision ENT ENT ED: Denies dysphagia or sore throat Cardiovascular Cardiovascular: Reports other; Denies chest pain, leg edema, palpitations or racing heartbeat Respiratory/Chest Respiratory/Chest: Denies cough, dyspnea or dyspnea on exertion Gastrointestinal Gastrointestinal: Denies abdominal pain, diarrhea, nausea or vomiting Genitourinary Genitourinary ED: Denies dysuria, hematuria or urinary frequency Musculoskeletal Musculoskeletal: Denies back pain, extremity pain or neck pain Integumentary Denies rash or wounds Neurologic Neurologic: Denies headache(s), paresthesias or weakness EXAM Physical Exam Const Vital Signs: 03/06/24 12:02 03/06/24 12:04 03/06/24 13:02 Temperature 97.8 F Temperature Source Oral Pulse Rate 75 84 Respiratory Rate 18 17 Respiratory Effort Normal Respiratory Pattern Normal Blood Pressure 129/104 H 116/85 H Blood Pressure Mean 112 95 Pulse Ox 98 97 Oxygen Delivery Method Room Air Room Air 03/06/24 13:47 Temperature 97.8 F Temperature Source Pulse Rate 68 Respiratory Rate 15 Respiratory Effort Respiratory Pattern Blood Pressure 112/77 Blood Pressure Mean 88 Pulse Ox 97 Oxygen Delivery Method Positive well nourished and well developed General Appearance ED: well developed and NAD HEENT Reports moist mucous membranes normocephalic and atraumatic Eyes EOMs intact bilaterally and conjunctivae normal General Eye ED: Yes normal appearance of both eyes; Negative for pale conjunctiva Neck no lymphadenopathy and supple General: Negative for tenderness Chest Wall Chest: Negative for tenderness Resp normal respiratory effort and normal air movement Effort and Inspection: symmetric chest movement; Negative for respiratory distress Cardio regular rate, regular rhythm and no murmurs Peripheral Pulses: pulses 2+ throughout GI normal to inspection, nondistended, normoactive bowel sounds and non-tender Palpation: Negative for guarding or rebound tenderness present Back/Spine no CVA tenderness and no thoracic nor lumbar tenderness Extremity normal to inspection General Extremety ED: Negative for edema or tenderness General Extremity: Negative for edema Neuro oriented x3, CN's II-XII intact bilaterally and no sensory deficits noted Sensorium / Orientation: awake and alert Skin no rashes or lesions noted and no wounds MDM MDM MDM Narrative Medical decision making narrative: Interventions / MDM: Differential diagnosis: Syncope Diagnosis considered but do not suspect: Electrolyte abnormalities, anemia however labs are normal. Pulmonary embolism however no dyspnea tachycardia or hypoxia. My EKG interpretation: Sinus rate of 77, no ST or T wave changes QTc 463. Imaging independently reviewed and interpreted by myself: N/A External documents reviewed: N/A Test considered but not ordered:N/A ED course: Vital stable no focal deficits. Feels fatigued. She did not sleep on night. EKG sinus rhythm. History of anemia with no transfusions. Frantz l check baseline labs. Will allow to eat and drink and reevaluate. Workup negative clinically felt better on reevaluation. Discharged outpatient follow-up. Return precautions. All questions answered. Re-evaluation: stable Disposition discussed with patient/family/significant other: Patient Case discussed with consulting clinician: N/A This note was generated with [employer] dictation software. It may contain incorrect words, spelling, and punctuation that were not noted in checking the note before signing. Lab Data Attestation: I reviewed the patient's lab results. Labs: Laboratory Results - last 24 hr 03/06/24 03/06/24 11:55 12:45 WBC 7.1 RBC 4.76 Hgb 12.3 Hct 38.3 MCV 80.5 L MCH 25.8 L MCHC 32.1 RDW Std Deviation 44.5 H RDW Coeff of Billy 15.3 H Plt Count 338 MPV 10.1 Immature Gran % (Auto) 0.300 Neut % (Auto) 61.7 Lymph % (Auto) 26.7 [place] % (Auto) 8.6 Eos % (Auto) 2.0 Baso % (Auto) 0.7 Absolute Neuts (auto) 4.4 Absolute Lymphs (auto) 1.89 Nucleated RBC % 0 Sodium 137 Potassium 3.5 Chloride 105 Carbon Dioxide 26.0 Anion Gap 6 BUN 7 Creatinine 0.58 Estim Creat Clear Calc 132.95 Est GFR (MDRD) Af Amer 167 Est GFR (MDRD) Non-Af 138 BUN/Creatinine Ratio 12.0 Glucose 102 Calcium 9.4 Serum , Qual NEGATIVE POC Glucose 104 Discharge Plan Triage Chief Complaint: Syncope ED Provider: Alli Oh Dx/Rx/DC Orders Clinical Impression: Syncope, History of anemia Instructions: Causes of Syncope Prescriptions: No Action PNV-[place] 28-1-300 mg capsule 1 cap PO DAILY cholecalciferol (vitamin D3) 50 mcg (2,000 unit) capsule 50 mcg PO QDAY citalopram 20 mg tablet 20 mg PO DAILY Qty: 30 1RF famotidine [Pepcid] 20 mg tablet 20 mg PO BID 30 Days Qty: 60 0RF Primary Care Provider: Yara Henry NP Referrals: Gurwinder Bahena MD [Med Staff - Gas Generator Operator] - 1 Week Activity Restrictions/Additional Instructions: EKG normal. Hemoglobin 12.3 today, electrolytes normal. Follow-up with Dr. Bahena. If symptoms recur, return to ED for reevaluation. Print Language: Slovenian Disposition Disposition: Home, Self Care Discharge Date/Time: 03/06/24 13:51
--- NOTE | 2024-03-06 12:26 | EKG12_ITS ---
Test Reason : SYNCOPE Blood Pressure : */* mmHG Vent. Rate : 77 BPM Atrial Rate : 77 BPM P-R Int : 136 ms QRS Dur : 86 ms QT Int : 410 ms P-R-T Axes : 68 72 46 degrees QTcB Int : 463 ms Normal sinus rhythm Normal ECG Confirmed by MARILUZ LEDEZMA, GILDARDO ([id number]), offline editor HANK KAYE ([id number]) on 03/07/2024 8:53:44 AM Referred By: IKER/MICAH Confirmed By: GILDARDO MCGRAW MD
[2024-03-06 12:45] LABS: Bedside Glucose 104 mg/dL (74-106)
[2024-03-06 12:56] LABS: Absolute Lymphocyte Count 1.89 X10^3/uL (0.83-4.51); Absolute Neutrophil Count 4.4 X10^3/uL (2.0-7.7); Basophil# 0.05 X10^3/uL; Basophil% 0.7 % (0-1); Eosinophil# 0.14 X10^3/uL; Hematocrit 38.3 % (37-47); Hemoglobin 12.3 g/dL (12.0-15.0); Lymphocyte # 1.89 X10^3/ul (0.83-4.51); Lymphocyte % 26.7 % (19-41); Mean Corp Hgb Conc 32.1 g/dL (32-36); Mean Corpuscular Hgb 25.8 pg (27.0-32.0); Mean Corpuscular Volume 80.5 fL (81-99); Mean Platelet Vol. 10.1 fl (6.2-12.0); Monocyte# 0.61 X10^3/uL; Monocyte% 8.6 % (0-10); NRBC Flagged by Analyzer 0 % (0-5); Neutrophil # 4.36 X10^3/uL (2.7-7.7); Neutrophil % 61.7 % (47-70); Platelet Count 338 K/mm3 (150-450); RBC Distribution Width CV 15.3 % (11.6-14.6); RBC Distribution Width SD 44.5 fl (35.1-43.9); Red Blood Count 4.76 M/mm3 (4.2-5.4); White Blood Count 7.1 K/mm3 (4.4-11.0)
[2024-03-06 13:02] VITALS: BP 116/85; PULSE 84; RESP 17; O2SAT 97
[2024-03-06 13:10] LABS: Internal QC Validated? YES +Cl - CLEAR BKGD; Pregnancy, Serum, hCG Quali. NEGATIVE Negative
[2024-03-06 13:15] LABS: Anion Gap 6 (5-15); BUN 7 mg/dL (7-18); Calcium,Total 9.4 mg/dL (8.5-10.1); Chloride 105 mmol/L (98-107); Creatinine, Serum 0.58 mg/dL (0.55-1.02); EST Glomerular Filtration Rate 138 mL/min (>60); Est Glom Filt Rate - Afr Amer 167 mL/min (>60); Estimated Creatinine Clearance 132.95 ml/min; Glucose 102 mg/dL (74-106); Potassium 3.5 mmol/L (3.5-5.1); Sodium Level 137 mmol/L (136-145)
[2024-03-06 13:47] VITALS: BP 112/77; PULSE 68; RESP 15; TEMP 36.6; O2SAT 97
== END 2024-03-06 13:51 | disposition home or self-care (01) ==
PROVIDERS: Emergency Provider Emergency Medicine; PCP Nurse Practitioner Women's Health; Visit Provider Emergency Medicine
DX: R55 Syncope and collapse (principal)
CPT/HCPCS: 80048; 82962; 84703; 85025; 93005; 99284; A4216

== ENCOUNTER 2024-05-28 22:35 | Emergency (ER) | payer OTHER, SELFPAY ==
[2024-05-28 22:35] VITALS: BP 115/80; PULSE 98; RESP 16; TEMP 36.6; O2SAT 100; BMI 21.5
--- NOTE | 2024-05-28 23:27 | US_ITS ---
PROCEDURE: GALLBLADDER COMPARISON: None FINDINGS: Liver: Liver demonstrates a homogeneous echotexture measuring 14.3 cm without intrahepatic ductal dilatation. Gallbladder: No echogenic gallstones, gallbladder wall thickening, or pericholecystic fluid is present. Common bile duct: Normal measuring 3 mm. Pancreas: Visualized portions are sonographically unremarkable. Visualized portions of the right kidney are unremarkable measuring 9.4 cm in the long axis. No right upper quadrant ascites. US/Gallbladder IMPRESSION: NORMAL RIGHT UPPER QUADRANT ULTRASOUND. Reading [facility]
--- NOTE | 2024-05-28 23:31 | EDS_ITS ---
HPI History of Present Illness Chief Complaint: Nausea/Vomiting Informant: patient Narrative Narrative: Nausea and vomiting since 7 PM. Prior to this, ate taco and mac & cheese having sour cream. No hematemesis. No diarrhea. No fever or chills. Pain across the upper abdomen. 5 months . During she had a lot of vomiting. There was no pain. last menstrual period 2 weeks ago. Prior similar symptoms: No PFSH PFSH Medical History Vaginal delivery care in first trimester Home Medications ?Medication ?Instructions ?Recorded ?Last Taken ?Type multivit-min no.71-iron fum 28 1 cap PO DAILY pregnanc y 11/24/23 12/07/23 20:09 History mg-folate no.1 1 mg-dha 300 mg 1 cap capsule (PNV-Erie) cholecalciferol (vitamin D3) 50 50 mcg PO QDAY 4 Unknown History mcg (2,000 unit) capsule buspirone 10 mg tablet 10 mg PO BID #60 tabs Unknown Rx famotidine 20 mg tablet 20 mg PO BID #28 TABLETS 08/17 Unknown Rx ondansetron 4 mg disintegrating 4 mg PO Q8H PRN PRN Na usea #10 tabs 05/29/24 Unknown Rx tablet Allergy/AdvReac Type Severity Reaction Status Date / Time No Known Allergies Allergy Verified 05/28/24 22:37 Family History Sister Seizures Brother Autism Social History adopted: No household members: significant other number of children: 1 current occupational status: employed 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 current occupational exposures/hazards: No pets and animals: Yes pets and animals: dog(s) history of recent travel: Yes ([place]) out of state: Yes out of country: No sexually active: Yes Smoking Status: Never smoker alcohol intake: never substance use type: does not use well-balanced diet: rarely or never caffeine: No eating out: rarely or never during the past year weight has: remained stable what type of physical activity do you participate in: none manuel/methodist: None seatbelt use: always do you feel safe at home: Yes additional social history: BF Myra ROS ROS ED Constitutional Constitutional ED: Denies chills, fever(s) or sweats ENT ENT ED: Denies sore throat Cardiovascular Cardiovascular: Denies chest pain, leg edema, palpitations or racing heartbeat Respiratory/Chest Respiratory/Chest: Denies cough, dyspnea or dyspnea on exertion Gastrointestinal Gastrointestinal: Reports abdominal pain, nausea and vomiting; Denies diarrhea Genitourinary Genitourinary ED: Denies dysuria, hematuria or urinary frequency Musculoskeletal Musculoskeletal: Denies back pain, extremity pain or neck pain Integumentary Denies rash or wounds Neurologic Neurologic: Denies headache(s), paresthesias or weakness EXAM Physical Exam Const Vital Signs: 05/28/24 22:35 Temperature 97.8 F Temperature Source Temporal Pulse Rate 98 Respiratory Rate 16 Blood Pressure 115/80 Blood Pressure Mean 91 Pulse Ox 100 Oxygen Delivery Method Room Air Positive well nourished and well developed General Appearance ED: well developed and NAD HEENT Reports moist mucous membranes normocephalic and atraumatic Eyes General Eye ED: Yes normal appearance of both eyes Neck full ROM Chest Wall Chest: Negative for tenderness Resp normal respiratory effort and normal air movement Effort and Inspection: symmetric chest movement; Negative for respiratory distress Cardio regular rate, regular rhythm and no murmurs Peripheral Pulses: pulses 2+ throughout GI normal to inspection, nondistended, normoactive bowel sounds GI Narrative: Tender epigastrium and right upper quadrant. Negative McBurney's. Palpation: Negative for guarding or rebound tenderness present Extremity normal to inspection General Extremety ED: Negative for edema or tenderness General Extremity: Negative for edema Neuro oriented x3 and no sensory deficits noted Sensorium / Orientation: awake and alert Skin no rashes or lesions noted and no wounds MDM MDM MDM Narrative Medical decision making narrative: Interventions / MDM: Differential diagnosis: Gastritis, nausea and vomiting Diagnosis considered but do not suspect: cholecystitis however ultrasound negative. My EKG interpretation: N/A Imaging independently reviewed and interpreted by myself: Right upper quadrant ultrasound: No cholelithiasis, no acute process. Normal gallbladder. Normal common bile duct. External documents reviewed: N/A Test considered but not ordered:N/A ED course: Patient vomiting over 4 hours ago no hematemesis. Pain across upper abdomen with epigastric and right upper quadrant pain. She ate cheese and sour cream for supper. Abdominal labs ordered, right upper quadrant ultrasound. Fluids Pepcid and Toradol ordered for symptom control. 0030: Labs are stable, ultrasound negative. Clinically feeling better on reevaluation. Orally challenge with no difficulties. Prescription for Pepcid and Zofran to use. Outpatient follow-up. All questions were answered. Re-evaluation: stable Disposition discussed with patient/family/significant other: Patient and mother Case discussed with consulting clinician: N/A This note was generated with Bloxy dictation software. It may contain incorrect words, spelling, and punctuation that were not noted in checking the note before signing. Lab Data Attestation: I reviewed the patient's lab results. Labs: Laboratory Results - last 24 hr 05/28/24 23:30 WBC 12.4 H RBC 5.25 Hgb 13.8 Hct 43.3 MCV 82.5 MCH 26.3 L MCHC 31.9 L RDW Std Deviation 40.8 RDW Coeff of Billy 13.7 Plt Count 308 MPV 9.6 Immature Gran % (Auto) 0.200 Neut % (Auto) 84.1 H Lymph % (Auto) 8.5 L [place] % (Auto) 6.0 Eos % (Auto) 1.0 Baso % (Auto) 0.2 Absolute Neuts (auto) 10.5 H Absolute Lymphs (auto) 1.06 Nucleated RBC % 0 Sodium 138 Potassium 3.6 Chloride 105 Carbon Dioxide 26.0 Anion Gap 7 BUN 12 Creatinine 0.53 L Estim Creat Clear Calc 144.99 Est GFR (MDRD) Af Amer 186 Est GFR (MDRD) Non-Af 153 BUN/Creatinine Ratio 22.5 H Glucose 94 Calcium 9.4 Total Bilirubin 0.50 Direct Bilirubin 0.14 AST 16 ALT 27 Alkaline Phosphatase 83 Total Protein 7.6 Albumin 3.9 Globulin 3.7 Lipase 27 Serum , Qual NEGATIVE Radiography Diagnostic Testing: Clinical Impression(s) from Imaging Studies Gallbladder Ultrasound 05/28/24 23:27 IMPRESSION: NORMAL RIGHT UPPER QUADRANT ULTRASOUND. Reading Location: [facility] Discharge Plan Triage Chief Complaint: Nausea/Vomiting ED Provider: Alli Oh Dx/Rx/DC Orders Clinical Impression: Gastritis, Nausea & vomiting, Abdominal pain Instructions: ED Gastritis (Adult), ED Vomiting (Adult) Prescriptions: New famotidine 20 mg tablet 20 mg PO BID Qty: 28 0RF ondansetron 4 mg tablet,disintegrating 4 mg PO Q8H PRN PRN (Reason: Nausea) Qty: 10 0RF Discontinued famotidine [Pepcid] 20 mg tablet 20 mg PO BID 30 Days Qty: 60 0RF No Action PNV-Erie 28-1-300 mg capsule 1 cap PO DAILY cholecalciferol (vitamin D3) 50 mcg (2,000 unit) capsule 50 mcg PO QDAY buspirone 10 mg tablet 10 mg PO BID Qty: 60 3RF Primary Care Provider: Yara Henry NP Referrals: Yara Henry WOOL HAT SANDING MACHINE OPERATOR, WOOL HAT SANDING MACHINE OPERATOR-C [Primary Care Provider] - 1-2 Weeks Activity Restrictions/Additional Instructions: Gallbladder ultrasound normal. Labs stable normal lipase normal liver enzymes normal kidney function. Continue oral fluids for hydration. Take famotidine as prescribed. Zofran as needed. Follow-up with your doctor. Print Language: Chinese Disposition Disposition: Home, Self Care Discharge Date/Time: 05/29/24 00:53
[2024-05-28] MEDS: Ondansetron 4 MG/2 ML Vial IV (23:33)
[2024-05-28] MEDS: Ketorolac 15 MG/ML Vial IV (23:33)
[2024-05-28] MEDS: 0.9% Normal Saline (1000mL) 1,000 ML 999 ML IV (23:34)
[2024-05-28 23:42] LABS: Absolute Lymphocyte Count 1.06 X10^3/uL (0.83-4.51); Absolute Neutrophil Count 10.5 X10^3/uL (2.0-7.7); Basophil# 0.03 X10^3/uL; Basophil% 0.2 % (0-1); Eosinophil# 0.12 X10^3/uL; Hematocrit 43.3 % (37-47); Hemoglobin 13.8 g/dL (12.0-15.0); Lymphocyte # 1.06 X10^3/ul (0.83-4.51); Lymphocyte % 8.5 % (19-41); Mean Corp Hgb Conc 31.9 g/dL (32-36); Mean Corpuscular Hgb 26.3 pg (27.0-32.0); Mean Corpuscular Volume 82.5 fL (81-99); Mean Platelet Vol. 9.6 fl (6.2-12.0); Monocyte# 0.74 X10^3/uL; NRBC Flagged by Analyzer 0 % (0-5); Neutrophil # 10.45 X10^3/uL (2.7-7.7); Neutrophil % 84.1 % (47-70); Platelet Count 308 K/mm3 (150-450); RBC Distribution Width CV 13.7 % (11.6-14.6); RBC Distribution Width SD 40.8 fl (35.1-43.9); Red Blood Count 5.25 M/mm3 (4.2-5.4); White Blood Count 12.4 K/mm3 (4.4-11.0)
[2024-05-28 23:58] LABS: Internal QC Validated? YES +Cl - CLEAR BKGD; Pregnancy, Serum, hCG Quali. NEGATIVE Negative
[2024-05-29 00:03] LABS: AST(SGOT) 16 U/L (15-37); Alanine Aminotransfer ALT/SGPT 27 U/L (13-56); Albumin, Serum 3.9 g/dL (3.2-5.0); Alkaline Phosphatase 83 U/L (45-117); Anion Gap 7 (5-15); BUN 12 mg/dL (7-18); BUN/Creat Ratio 22.5 RATIO (10-20); Bilirubin, Direct 0.14 mg/dL (0.00-0.30); Calcium,Total 9.4 mg/dL (8.5-10.1); Chloride 105 mmol/L (98-107); Creatinine, Serum 0.53 mg/dL (0.55-1.02); EST Glomerular Filtration Rate 153 mL/min (>60); Est Glom Filt Rate - Afr Amer 186 mL/min (>60); Estimated Creatinine Clearance 144.99 ml/min; Globulin 3.7 g/dL (2.2-4.2); Glucose 94 mg/dL (74-106); Lipase 27 U/L (13-75); Potassium 3.6 mmol/L (3.5-5.1); Protein, Total 7.6 g/dL (6.4-8.2); Sodium Level 138 mmol/L (136-145)
== END 2024-05-29 00:53 | disposition home or self-care (01) ==
PROVIDERS: Emergency Provider Emergency Medicine; PCP Nurse Practitioner Women's Health; Visit Provider Emergency Medicine
DX: K29.70 Gastritis, unspecified, without bleeding (principal)
CPT/HCPCS: 76705; 80048; 80076; 83690; 84703; 85025; 96361; 96374; 96375; 96376; 99283; A4216; J2405

== ENCOUNTER 2024-07-02 19:21 | Emergency (ER) | payer OTHER, SELFPAY ==
[2024-07-02 19:22] VITALS: BP 142/95; PULSE 106; RESP 16; TEMP 36.4; O2SAT 98
[2024-07-02 20:50] VITALS: O2SAT 98
--- NOTE | 2024-07-02 20:50 | EKG12_ITS ---
Test Reason : DYSRHYTHMIA Blood Pressure : */* mmHG Vent. Rate : 81 BPM Atrial Rate : 81 BPM P-R Int : 150 ms QRS Dur : 88 ms QT Int : 382 ms P-R-T Axes : 60 73 45 degrees QTcB Int : 443 ms Normal sinus rhythm Normal ECG Confirmed by Delvis Fan ([id number]), book editor DYLON HERNANDEZ ([id number]) on 07/03/2024 11:01:19 AM Referred By: AR Confirmed By: Delvis Fan
--- NOTE | 2024-07-02 21:00 | RAD_ITS ---
PROCEDURE: CHEST PA AND LATERAL REASON FOR EXAM: CHEST PAIN TECHNIQUE: Frontal and lateral views of the chest. COMPARISON: 02/04/2024 FINDINGS: The cardiothymic contour is normal. The lungs are clear. The bones are unremarkable. RAD/Chest PA and Lateral IMPRESSION: NORMAL PEDIATRIC CHEST. Reading Location: [facility]
--- NOTE | 2024-07-02 21:04 | EX.ED.DYSGE1 ---
HPI History of Present Illness Chief Complaint: Dizziness Informant: patient and parent Narrative Narrative: Presents to ED with mother for evaluation. Patient reports since Tuesday noted some lightheaded symptoms pain in the back of her head. Patient went to outside ED through [facility] had a CT head that was negative. Reported blood pressure 121/90. She has been checking it her diastolics been in the 90s and they are concerned. She said intermittent chest pain. And dyspnea. Denies cough. Denies recent travel or surgeries. No history of PE or DVT. Denies tobacco. Mother reports unclear on family history and grandmother side. Denies vomiting or diarrhea. Denies urinary symptoms. Last menstrual period 2 weeks ago. Does not have a PCP. Mother has high blood pressure is concerned with the diastolic being elevated. PFSH PFSH Medical History Vaginal delivery care in first trimester Home Medications ?Medication ?Instructions ?Recorded ?Last Taken ?Type ondansetron 4 mg disintegrating 4 mg PO Q8H PRN PRN Nausea #10 tabs 05/29/24 Unknown Rx tablet amlodipine 2.5 mg tablet 2.5 mg PO DAILY #30 tabs 07/02/24 Unknown Rx Allergy/AdvReac Type Severity Reaction Status Date / Time No Known Allergies Allergy Verified 07/02/24 19:22 Family History Sister Seizures Brother Autism Social History adopted: No household members: significant other number of children: 1 current occupational status: employed 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 current occupational exposures/hazards: No pets and animals: Yes pets and animals: dog(s) history of recent travel: Yes ([place]) out of state: Yes out of country: No sexually active: Yes Smoking Status: Never smoker alcohol intake: never substance use type: does not use well-balanced diet: rarely or never caffeine: No eating out: rarely or never during the past year weight has: remained stable what type of physical activity do you participate in: none manuel/jainism: None seatbelt use: always do you feel safe at home: Yes additional social history: BF Myra ROS ROS ED Constitutional Constitutional ED: Denies chills, fever(s) or sweats ENT ENT ED: Denies sore throat Cardiovascular Cardiovascular: Reports chest pain and other Details: Lightheaded symptoms ; Denies leg edema, palpitations or racing heartbeat Respiratory/Chest Respiratory/Chest: Denies cough, dyspnea or dyspnea on exertion Gastrointestinal Gastrointestinal: Denies abdominal pain, diarrhea, nausea or vomiting Genitourinary Genitourinary ED: Denies dysuria, hematuria or urinary frequency Musculoskeletal Musculoskeletal: Denies back pain, extremity pain or neck pain Integumentary Denies rash or wounds Neurologic Neurologic: Reports headache(s); Denies paresthesias or weakness EXAM Physical Exam Const Vital Signs: 07/02/24 19:22 07/02/24 20:50 07/02/24 21:22 Temperature 97.6 F L Temperature Source Temporal Pulse Rate 106 H 87 Respiratory Rate 16 17 Blood Pressure 142/95 H 125/94 H Blood Pressure Mean 110 104 Pulse Ox 98 98 98 Oxygen Delivery Method Room Air Room Air Room Air 07/02/24 23:00 Temperature Temperature Source Pulse Rate 75 Respiratory Rate 17 Blood Pressure 114/94 H Blood Pressure Mean 100 Pulse Ox 98 Oxygen Delivery Method Room Air Positive well nourished and well developed General Appearance ED: well developed and NAD HEENT Reports moist mucous membranes normocephalic and atraumatic Eyes General Eye ED: Yes normal appearance of both eyes Neck full ROM Chest Wall Chest: Negative for tenderness Resp normal respiratory effort and normal air movement Effort and Inspection: symmetric chest movement; Negative for respiratory distress Cardio regular rhythm and no murmurs Rate: tachycardic Peripheral Pulses: pulses 2+ throughout GI normal to inspection, nondistended, normoactive bowel sounds and non-tender Palpation: Negative for guarding or rebound tenderness present Extremity normal to inspection General Extremety ED: Negative for edema or tenderness General Extremity: Negative for edema Neuro oriented x3, CN's II-XII intact bilaterally and no sensory deficits noted Sensorium / Orientation: awake and alert Skin no rashes or lesions noted and no wounds MDM MDM MDM Narrative Medical decision making narrative: Interventions / MDM: Differential diagnosis: Atypical chest pain. Diagnosis considered but do not suspect: ACS however workup negative. PE however D-dimer negative. My EKG interpretation: Sinus rhythm 81, no ST changes. T wave versions V1 V2, similar to February 2024. Imaging independently reviewed and interpreted by myself: 2 view chest x-ray: No acute process. External documents reviewed: N/A Test considered but not ordered:N/A ED course: Tachycardic intermittent chest pain none currently. Been having lightheaded symptoms. Blood pressure 142/95. Family is concerned. Will obtain cardiac workup D-dimer with low risk Wells criteria. 2359: Patient's cardiac workup negative clued D-dimer. They are concerned with the diastolic above 90. She started on amlodipine. She is given outpatient follow-up. All questions were answered. Re-evaluation: stable Disposition discussed with patient/family/significant other: Patient and mother Case discussed with consulting clinician: N/A This note was generated with Apto dictation software. It may contain incorrect words, spelling, and punctuation that were not noted in checking the note before signing. Lab Data Attestation: I reviewed the patient's lab results. Labs: Laboratory Results - last 24 hr 07/02/24 07/02/24 07/02/24 20:59 21:28 23:15 WBC 8.8 RBC 4.72 Hgb 12.8 Hct 39.1 MCV 82.8 MCH 27.1 MCHC 32.7 RDW Std Deviation 40.3 RDW Coeff of Billy 13.5 Plt Count 326 MPV 10.1 Immature Gran % (Auto) 0.300 Neut % (Auto) 71.6 H Lymph % (Auto) 17.9 L [place] % (Auto) 7.7 Eos % (Auto) 1.9 Baso % (Auto) 0.6 Absolute Neuts (auto) 6.3 Absolute Lymphs (auto) 1.58 Nucleated RBC % 0 D-Dimer Quant (PE/DVT) < 0.27 L Sodium 137 Potassium 3.7 Chloride 104 Carbon Dioxide 23.0 Anion Gap 10 BUN 7 Creatinine 0.74 Est GFR (MDRD) Non-Af 119 BUN/Creatinine Ratio 8.9 L Glucose 91 Calcium 9.5 Troponin T High Sens 7 Troponin T Hi Sens 2 Hr < 6 Serum , Qual NEGATIVE Radiography Diagnostic Testing: Clinical Impression(s) from Imaging Studies Chest X-Ray 07/02/24 21:00 IMPRESSION: NORMAL PEDIATRIC CHEST. Reading Location: [facility] Discharge Plan Triage Chief Complaint: Dizziness ED Provider: Alli Oh Dx/Rx/DC Orders Clinical Impression: Chest pain, Elevated blood pressure reading Instructions: ED Chest Pain, Noncardiac, ED Hypertension, To Be Confirmed Prescriptions: New amlodipine 2.5 mg tablet 2.5 mg PO DAILY Qty: 30 0RF No Action ondansetron 4 mg tablet,disintegrating 4 mg PO Q8H PRN PRN (Reason: Nausea) Qty: 10 0RF Primary Care Provider: Yara Henry NP Referrals: Yara Henry MAINTENANCE HELPER, MAINTENANCE HELPER-C [Primary Care Provider] - Adrianna Cuevas [facility], [[facility]] - 1-2 Weeks Activity Restrictions/Additional Instructions: Your cardiac workup negative including your D-dimer. You concerned with your diastolic blood pressure in the 90s. Take amlodipine as prescribed. Keep a log of your blood pressure in the morning and at night before bedtime. Follow-up with Dr. Cuevas. Print Language: Iranian Disposition Disposition: Home, Self Care
[2024-07-02 21:07] LABS: Absolute Lymphocyte Count 1.58 X10^3/uL (0.83-4.51); Absolute Neutrophil Count 6.3 X10^3/uL (2.0-7.7); Basophil# 0.05 X10^3/uL; Basophil% 0.6 % (0-1); Eosinophil# 0.17 X10^3/uL; Eosinophils% 1.9 % (0-5); Hematocrit 39.1 % (37-47); Hemoglobin 12.8 g/dL (12.0-15.0); Lymphocyte # 1.58 X10^3/ul (0.83-4.51); Lymphocyte % 17.9 % (19-41); Mean Corp Hgb Conc 32.7 g/dL (32-36); Mean Corpuscular Hgb 27.1 pg (27.0-32.0); Mean Corpuscular Volume 82.8 fL (81-99); Mean Platelet Vol. 10.1 fl (6.2-12.0); Monocyte# 0.68 X10^3/uL; Monocyte% 7.7 % (0-10); NRBC Flagged by Analyzer 0 % (0-5); Neutrophil # 6.31 X10^3/uL (2.7-7.7); Neutrophil % 71.6 % (47-70); Platelet Count 326 K/mm3 (150-450); RBC Distribution Width CV 13.5 % (11.6-14.6); RBC Distribution Width SD 40.3 fl (35.1-43.9); Red Blood Count 4.72 M/mm3 (4.2-5.4); White Blood Count 8.8 K/mm3 (4.4-11.0)
[2024-07-02 21:22] VITALS: BP 125/94; PULSE 87; RESP 17; O2SAT 98
[2024-07-02 21:33] LABS: Troponin T High Sensitivity 7 ng/L (<=14)
[2024-07-02 22:07] LABS: D-Dimer Quantitative (DVT/PE) < 0.27 FEU/ug/m (0.27-0.49)
[2024-07-02 22:18] LABS: Anion Gap 10 (5-15); BUN 7 mg/dL (4-19); BUN/Creat Ratio 8.9 RATIO (10-20); Calcium,Total 9.5 mg/dL (7.6-11.0); Chloride 104 mmol/L (98-108); Creatinine, Serum 0.74 mg/dL (0.70-1.20); EST Glomerular Filtration Rate 119 (>60); Glucose 91 mg/dL (70-99); Potassium 3.7 mmol/L (3.3-5.1); Sodium Level 137 mmol/L (133-145)
[2024-07-02 22:27] LABS: Internal QC Validated? YES +Cl - CLEAR BKGD; Pregnancy, Serum, hCG Quali. NEGATIVE Negative
[2024-07-02 23:00] VITALS: BP 114/94; PULSE 75; RESP 17; O2SAT 98
[2024-07-02] MEDS: amLODIPine 5 MG Tablet PO (23:12)
[2024-07-02 23:54] LABS: Troponin T High Sens 2 HR < 6 ng/L (<=14)
[2024-07-03 00:05] VITALS: BP 119/77; PULSE 76; RESP 18; TEMP 36.6; O2SAT 100
== END 2024-07-03 00:09 | disposition home or self-care (01) ==
PROVIDERS: Emergency Provider Emergency Medicine; PCP Nurse Practitioner Women's Health; Visit Provider Emergency Medicine
DX: R07.9 Chest pain, unspecified (principal); R03.0 Elevated blood-pressure reading, without diagnosis of hypertension
CPT/HCPCS: 71046; 80048; 84484; 84703; 85025; 85379; 93005; 99284; A4216